=== PATIENT | female | born 1995 | race African-American/Black ===

== ENCOUNTER 2016-04-12 19:04 | Inpatient (IN) | payer OTHER ==
[~2016-04-12] VITALS: Ht 152.4 cm; Wt 64.4 kg
[~2016-04-12 19:04] MED LIST: EPP3/2 IM; PRENTAB26 PO
[2016-04-12 19:52] LABS: BASO % 0.3 %; BASO ABS # 0.03 K/uL (0-0.2); COMPLETE YES; EOS % 1.3 %; HEMATOCRIT 32.5 % (37-47); IG% 0.2 %; LYMPH ABS # 2.54 K/uL (1.2-3.4); MEAN CELL VOLUME 88.1 fL (80-100); MEAN CORPUSCULAR HEMOGLOBIN 30.1 pg (25-34); MEAN CORPUSCULAR HGB CONC 34.2 g/dl (32-36); MEAN PLATELET VOLUME 9.9 fL (7.4-10.4); MONO % 7.9 %; NEUT % 65.3 %; PLATELET COUNT 222 K/uL (130-400); RED BLOOD COUNT 3.69 M/uL (4.2-5.4); WHITE BLOOD COUNT 10.14 K/uL (4.8-10.8)
[2016-04-12 19:52] LABS: PREG INTERNAL NEGATIVE QC NEG CLEAR BACKGROUND; PREG INTERNAL POSITIVE QC POS CONTROL LINE; URINE APPEARANCE CLEAR (CLEAR); URINE BILIRUBIN NEG (NEG); URINE COLOR YELLOW; URINE EPITHELIAL CELL AUTO >30 /lpf (0-5); URINE NITRITE NEG (NEG); URINE SPECIFIC GRAVITY 1.018 (1.000-1.030); UROBILINOGEN NEG (NEG); ZZUR CULT IF INDIC CLEAN CATCH YES
[2016-04-12 19:58] LABS: MANUAL MICROSCOPIC REQUIRED? NO; REVIEW REQ? NO
--- NOTE | 2016-04-12 20:07 | EMERGENCY ROOM VISIT NOTE ---
History Report prepared by [place]: Fuad Davis Under the Supervision of: Dr. Francisca Mckeon M.D. First contact with patient: 19:36 Chief Complaint: MENTAL HEALTH EVALUATION Stated Complaint: MENTAL HEALTH EVAL History of Present Illness The patient is a 20 year old female who presents to the Emergency Room with complaints of suicidal ideation prior to arrival. Per patient's significant other, the patient was laying in bed when she pointed a BB gun to head and said she wanted to shoot herself. The patient says she does not remember this event because she was "blacked out." She denies any alcohol or drug use. She also denies suicidal ideation at this time. Per significant other, he thinks this episode was brought on by a miscommunication between the two of them. The patient was admitted to the [facility] in May 2015. Last month, she was admitted to [address] [place] [address]. The patient has a history of suicidal ideation where she has wanted or tried to walk in moving traffic. The patient is 21 weeks and can feel the baby moving. She denies any vaginal bleeding or discharge; it has been a normal . She denies any other medical complaints at this time. Source of History: patient, spouse/significant other Onset: prior to arrival Position: other (global) Note: Other associated symptoms: suicidal ideation prior to arrival Denies: suicidal ideation now Review of Systems See HPI for pertinent positives & negatives. A total of 10 systems reviewed and were otherwise negative. Past Medical & Surgical Medical Problems: (1) Depression (2) Intellectual disability (3) Mood disorder NOS (4) No chronic problems Family History Patient reports no known family medical history. Social History Smoking Status: Former Smoker Alcohol Use: none Drug Use: none Marital Status: other Housing Status: lives with significant other Occupation Status: employed Current/Historical Medications Scheduled Multivit/Min/Iron/Fol Ac/Pren ( Vitamin), 1 TAB PO DAILY Scheduled PRN Epinephrine (Epipen), 0.3 MG IM UD PRN for ALLERGIC REACTION Allergies Coded Allergies: Horner Pepper (Verified Allergy, Severe, Throat swelling, 04/12/16) Mustard (Verified Allergy, Severe, Hives and throat swelling, 04/12/16) Onion (Verified Allergy, Severe, Throat swelling, 04/12/16) Physical Exam Vital Signs Date Time Temp Pulse Resp B/P Pulse Ox O2 Delivery O2 Flow Rate FiO2 04/12/16 20:53 70 16 136/72 99 Room Air 04/12/16 19:05 36.9 71 18 157/68 98 Room Air Physical Exam Vital signs reviewed. General: Well-appearing female, in no significant distress. HEENT: No scleral icterus, PERRLA, neck supple. Atraumatic. Cardiovascular: Regular rate and rhythm, no extra sounds. Pulmonary: Clear to auscultation bilaterally, normal work of breathing. Abdomen: Soft, nontender, nondistended, positive bowel sounds. Gravid abdomen. Musculoskeletal: Atraumatic, no peripheral edema. Neurologic: Patient awake alert and oriented x 3, full strength in all 4 extremities. Cranial nerves 2 through 12 grossly intact. Skin: Warm, dry, no rash Psych: Denies suicidal or homicidal ideation Medical Decision & Procedures Laboratory Results 04/12/16 19:40 Red Blood Count 3.69, Mean Corpuscular Volume 88.1, Mean Corpuscular Hemoglobin 30.1, Mean Corpuscular Hemoglobin Concent 34.2, Mean Platelet Volume 9.9, Neutrophils (%) (Auto) 65.3, Lymphocytes (%) (Auto) 25.0, Monocytes (%) (Auto) 7.9, Eosinophils (%) (Auto) 1.3, Basophils (%) (Auto) 0.3, Neutrophils # (Auto) 6.62, Lymphocytes # (Auto) 2.54, Monocytes # (Auto) 0.80, Eosinophils # (Auto) 0.13, Basophils # (Auto) 0.03 04/12/16 19:40 Test 04/12/16 19:08 04/12/16 19:40 Urine Color YELLOW Urine Appearance CLEAR (CLEAR) Urine pH 7.0 (4.5-7.5) Urine Specific [place] 1.018 (1.000-1.030) Urine Protein NEG (NEG) Urine Glucose (UA) NEG (NEG) Urine Ketones NEG (NEG) Urine Occult Blood NEG (NEG) Urine Nitrite NEG (NEG) Urine Bilirubin NEG (NEG) Urine Urobilinogen NEG (NEG) Urine Leukocyte Esterase MODERATE (NEG) Urine WBC (Auto) 5-10 /hpf (0-5) Urine RBC (Auto) 0-4 /hpf (0-4) Urine Hyaline Casts (Auto) 1-5 /lpf (0-5) Urine Epithelial Cells (Auto) >30 /lpf (0-5) Urine Bacteria (Auto) 2+ (NEG) Urine Test POS (NEG) Urine Opiates Screen NEG (NEG) Urine Methadone, Qualitative NEG (NEG) Urine Barbiturates NEG (NEG) Urine Phencyclidine (PCP) Level NEG (NEG) Ur Amphetamine/Methamphetamine NEG (NEG) MDMA (Ecstasy) Screen NEG (NEG) Urine Benzodiazepines Screen NEG (NEG) Urine Cocaine Metabolite NEG (NEG) Urine Marijuana (THC) NEG (NEG) White Blood Count 10.14 K/uL (4.8-10.8) Red Blood Count 3.69 M/uL (4.2-5.4) Hemoglobin 11.1 g/dL (12.0-16.0) Hematocrit 32.5 % (37-47) Mean Corpuscular Volume 88.1 fL (80-100) Mean Corpuscular Hemoglobin 30.1 pg (25-34) Mean Corpuscular Hemoglobin Concent 34.2 g/dl (32-36) Platelet Count 222 K/uL (130-400) Mean Platelet Volume 9.9 fL (7.4-10.4) Neutrophils (%) (Auto) 65.3 % Lymphocytes (%) (Auto) 25.0 % Monocytes (%) (Auto) 7.9 % Eosinophils (%) (Auto) 1.3 % Basophils (%) (Auto) 0.3 % Neutrophils # (Auto) 6.62 K/uL (1.4-6.5) Lymphocytes # (Auto) 2.54 K/uL (1.2-3.4) Monocytes # (Auto) 0.80 K/uL (0.11-0.59) Eosinophils # (Auto) 0.13 K/uL (0-0.5) Basophils # (Auto) 0.03 K/uL (0-0.2) RDW Standard Deviation 43.1 fL (36.4-46.3) RDW Coefficient of Variation 13.3 % (11.5-14.5) Immature Granulocyte % (Auto) 0.2 % Immature Granulocyte # (Auto) 0.02 K/uL (0.00-0.02) Anion Gap 9.0 mmol/L (3-11) Est Creatinine Clear Calc Drug Dose 143.0 ml/min Estimated GFR () > 150.0 Estimated GFR (Non- 137.6 BUN/Creatinine Ratio 15.7 (10-20) Calcium Level 9.2 mg/dl (8.5-10.1) Total Bilirubin 0.3 mg/dl (0.2-1) Aspartate Amino Transf (AST/SGOT) 20 U/L (15-37) Alanine Aminotransferase (ALT/SGPT) 25 U/L (12-78) Alkaline Phosphatase 86 U/L (45-117) Total Protein 7.0 gm/dl (6.4-8.2) Albumin 3.0 gm/dl (3.4-5.0) Globulin 4.0 gm/dl (2.5-4.0) Albumin/Globulin Ratio 0.8 (0.9-2) Thyroid Stimulating Hormone (TSH) 1.290 uIu/ml (0.300-4.500) Salicylates Level < 1.7 mg/dl (2.8-20) Acetaminophen Level < 2 ug/ml (10-30) Ethyl Alcohol mg/dL < 3.0 mg/dl (0-3) Laboratory results per my review. ED Course 1950: Past medical records reviewed. The patient was evaluated in room A7. A complete history and physical examination was performed. 0: At this time, the patient was placed in a bed in a [facility] facility , [address] [place] [address]. Medical Decision Differential diagnosis: Etiologies such as mood disorder, infection, hypoglycemia, electrolyte abnormalities, cardiac sources, intracerebral event, toxicologic, neurologic, as well as others were entertained. This patient was evaluated and appeared to be in no significant distress. The patient was medically cleared and evaluated by mental health. She was accepted on a 201 basis to [facility] for further management. Impression Primary Impression: Suicide gesture Scribe Attestation The scribe's documentation has been prepared under my direction and personally reviewed by me in its entirety. I confirm that the note above accurately reflects all work, treatment, procedures, and medical decision making performed by me. Departure Information Dispostion [facility] ([address] [place] [address]) Referrals Sirena Lim PA-C (PCP)
[2016-04-12 20:15] LABS: ALT/SGPT 25 U/L (12-78); BLOOD UREA NITROGEN 8 mg/dl (7-18); BUN/CREATININE RATIO 15.7 (10-20); CALCIUM 9.2 mg/dl (8.5-10.1); CARBON DIOXIDE 25 mmol/L (21-32); CHLORIDE 105 mmol/L (98-107); CREATININE 0.53 mg/dl (0.60-1.20); GLUCOSE 83 mg/dl (70-99); POTASSIUM 3.7 mmol/L (3.5-5.1); SODIUM 139 mmol/L (136-145)
[2016-04-12 20:23] LABS: ACETAMINOPHEN < 2 ug/ml (10-30)
[2016-04-12 20:24] LABS: BENZODIAZEPINE, URINE NEG (NEG); COCAINE,URINE NEG (NEG); PHENCYCLIDINE, URINE NEG (NEG)
[2016-04-12 20:25] LABS: ALB/GLOB RATIO 0.8 (0.9-2); ALKALINE PHOSPHATASE 86 U/L (45-117); AST/SGOT 20 U/L (15-37)
[2016-04-12] MEDS ORDERED: NURSING VERBAL MED ORDER ONE (21:15)
[2016-04-12 21:56] VITALS: O2SAT 96
[2016-04-12 22:29] VITALS: BP 153/81; PULSE 76; TEMP 36.9; Ht 152.4 cm; Wt 64.4 kg
[2016-04-12] MEDS ORDERED: MAGNESIUM HYDROXIDE SUSP 30 ML UDC PO PRN (22:30)
[2016-04-12] MEDS ORDERED: ALUMINUM/MAGNESIUM SUSP 30 ML UDC PO PRN (22:30)
[2016-04-12] MEDS ORDERED: SODIUM CHLORIDE 0.65% NA SOLN 45 ML (OCEAN) PRN (22:30)
[2016-04-12] MEDS ORDERED: BISMUTH SUBSALICYLATE PER ML OMNICELL CHARGE PO PRN (22:30)
[2016-04-12] MEDS ORDERED: EPINEPHRINE ADULT AUTO-INJECT 0.3 MG SYR IM PRN (22:45)
[2016-04-13 07:00] VITALS: BP_SYST 114; BP_SYST 117; BP_DIAS 65; BP_DIAS 68; PULSE 77; PULSE 91; TEMP 37
[2016-04-13] MEDS: PRENATAL VITAMIN TAB PO SCH (09:21)
[2016-04-13] MEDS: ACETAMINOPHEN 325 MG TAB PO PRN (12:23)
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
[2016-04-14 06:58] VITALS: BP_SYST 108; BP_SYST 112; BP_DIAS 58; BP_DIAS 67; PULSE 84; PULSE 85; TEMP 36.8
[2016-04-14] MEDS: PRENATAL VITAMIN TAB PO SCH (08:48)
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
[2016-04-14] MEDS: ACETAMINOPHEN 325 MG TAB PO PRN (11:45)
[2016-04-14] MEDS ORDERED: SERTRALINE HCL 50 MG TAB PO ONE (15:45)
[2016-04-15 07:05] VITALS: BP_SYST 106; BP_SYST 120; BP_DIAS 55; BP_DIAS 60; PULSE 80; PULSE 87; TEMP 36.7
[2016-04-15] MEDS: PRENATAL VITAMIN TAB PO SCH (09:07)
[2016-04-15] MEDS: SERTRALINE HCL 50 MG TAB PO SCH (09:07)
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
[2016-04-15] MEDS: ACETAMINOPHEN 325 MG TAB PO PRN (14:17)
[2016-04-16 06:55] VITALS: BP_SYST 111; BP_SYST 126; BP_DIAS 68; BP_DIAS 73; PULSE 88; PULSE 90; TEMP 36.8
[2016-04-16] MEDS: SERTRALINE HCL 50 MG TAB PO SCH (08:51)
[2016-04-16] MEDS: PRENATAL VITAMIN TAB PO SCH (08:51)
[2016-04-16] MEDS ORDERED: ZLF50 PO (09:29)
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
== END 2016-04-16 14:50 | disposition home or self-care (01) | DRG 781 ==
LOC: EDBD 19:04 → C.EDA 19:05 → C.MHU 21:21
PROVIDERS: ADMIT Psychiatry & Neurology Psychiatry; ATTEND Psychiatry & Neurology Psychiatry
DX: O99.342 Other mental disorders complicating pregnancy, second trimester (principal); R45.851 Suicidal ideations; F32.9 Major depressive disorder, single episode, unspecified; O99.012 Anemia complicating pregnancy, second trimester; D64.9 Anemia, unspecified; F41.9 Anxiety disorder, unspecified; F90.9 Attention-deficit hyperactivity disorder, unspecified type; F79 Unspecified intellectual disabilities; Z3A.21 21 weeks gestation of pregnancy; Z87.891 Personal history of nicotine dependence; Z79.899 Other long term (current) drug therapy; Z91.018 Allergy to other foods

== ENCOUNTER 2016-04-18 20:29 | Inpatient (IN) | payer OTHER ==
[~2016-04-18] VITALS: Ht 152.4 cm; Wt 69.9 kg
[~2016-04-18 20:29] MED LIST changes: -EPP3/2 IM; +ZLF50 PO
[2016-04-18 21:38] LABS: PREG INTERNAL NEGATIVE QC NEG CLEAR BACKGROUND; PREG INTERNAL POSITIVE QC POS CONTROL LINE
[2016-04-18 21:52] LABS: HEMATOCRIT 34.9 % (37-47); MEAN CELL VOLUME 88.6 fL (80-100); MEAN CORPUSCULAR HEMOGLOBIN 29.9 pg (25-34); MEAN CORPUSCULAR HGB CONC 33.8 g/dl (32-36); MEAN PLATELET VOLUME 10.4 fL (7.4-10.4); PLATELET COUNT 249 K/uL (130-400); RED BLOOD COUNT 3.94 M/uL (4.2-5.4); WHITE BLOOD COUNT 11.15 K/uL (4.8-10.8)
[2016-04-18 21:58] LABS: BENZODIAZEPINE, URINE NEG (NEG); COCAINE,URINE NEG (NEG); PHENCYCLIDINE, URINE NEG (NEG)
[2016-04-18 22:11] LABS: ALT/SGPT 31 U/L (12-78); BLOOD UREA NITROGEN 9 mg/dl (7-18); BUN/CREATININE RATIO 13.8 (10-20); CALCIUM 9.2 mg/dl (8.5-10.1); CARBON DIOXIDE 26 mmol/L (21-32); CHLORIDE 103 mmol/L (98-107); CREATININE 0.65 mg/dl (0.60-1.20); GLUCOSE 81 mg/dl (70-99); POTASSIUM 3.6 mmol/L (3.5-5.1); SODIUM 140 mmol/L (136-145)
[2016-04-18 22:17] LABS: ACETAMINOPHEN < 2 ug/ml (10-30)
[2016-04-18 22:22] LABS: ALKALINE PHOSPHATASE 102 U/L (45-117); AST/SGOT 22 U/L (15-37)
[2016-04-18 22:52] LABS: URINE APPEARANCE CLEAR (CLEAR); URINE BILIRUBIN NEG (NEG); URINE COLOR YELLOW; URINE EPITHELIAL CELL AUTO >30 /lpf (0-5); URINE NITRITE NEG (NEG); URINE SPECIFIC GRAVITY 1.008 (1.000-1.030); UROBILINOGEN NEG (NEG)
[2016-04-18 22:58] LABS: MANUAL MICROSCOPIC REQUIRED? NO; REVIEW REQ? NO
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
[2016-04-19] MEDS ORDERED: NURSING VERBAL MED ORDER ONE
[2016-04-19 00:06] VITALS: BP 122/61; PULSE 75; TEMP 36.8; Ht 152.4 cm; Wt 69.9 kg
[2016-04-19] MEDS ORDERED: MAGNESIUM HYDROXIDE SUSP 30 ML UDC PO PRN (01:00)
[2016-04-19] MEDS ORDERED: hydrOXYzine HCL 25 MG TAB PO PRN ×2 (01:00)
[2016-04-19] MEDS ORDERED: SODIUM CHLORIDE 0.65% NA SOLN 45 ML (OCEAN) PRN (01:00)
[2016-04-19] MEDS ORDERED: BISMUTH SUBSALICYLATE PER ML OMNICELL CHARGE PO PRN (01:00)
[2016-04-19] MEDS ORDERED: ALUMINUM/MAGNESIUM SUSP 30 ML UDC PO PRN (01:00)
[2016-04-19 01:07] VITALS: O2SAT 97
[2016-04-19 06:31] VITALS: BP_SYST 114; BP_SYST 121; BP_DIAS 68; BP_DIAS 70; PULSE 78; PULSE 99; TEMP 36.9
[2016-04-19] MEDS: SERTRALINE HCL 50 MG TAB PO SCH (09:24)
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
[2016-04-19] MEDS: ACETAMINOPHEN 325 MG TAB PO PRN (13:48)
[2016-04-20 07:09] VITALS: BP_SYST 117; BP_SYST 119; BP_DIAS 73; BP_DIAS 74; PULSE 83; PULSE 96; TEMP 36.8
[2016-04-20] MEDS: SERTRALINE HCL 50 MG TAB PO SCH (09:20)
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
[2016-04-21 07:03] VITALS: BP_SYST 120; BP_SYST 98; BP_DIAS 60; BP_DIAS 79; PULSE 79; PULSE 96; TEMP 36.7
[2016-04-21] MEDS: SERTRALINE HCL 50 MG TAB PO SCH (08:41)
[2016-04-21] MEDS ORDERED: PRENATAL VITAMIN TAB PO ONE (12:14)
--- NOTE | 2016-04-21 12:14 | Psychiatric Progress Notes ---
Progress Note Date of Service Apr 21, 2016. Interval History 20 yo female readmit on 201 with SI. Chief Complaint "I'm trying to be positive but I feel like I'm stuck in a spiral". Subjective Patient was seen & assessed interval progress reviewed with Treatment Team. No acute events overnight apart from a call from pt's roommates reported by nursing staff in the subsurface augmentee elint operator this am reporting concern that that patient might be discharged today. They reportedly expressed fearfulness that pt had been aggressive at home and hoped she would be hospitalized longer to receive more tx. Pt reports she is "a little miffed" about this this am. She denies thoughts of harm t anyone else bu does acknowledge friction in the apartment and reports her CM is assisting in possibly finding alternative living arrangements. She expresses feeling eager to discharge to attend therapy appt friday. We reviewed her failed discharge from last hospitalization. She perceives primary stressor is roommates. She struggles to problem solve for herself. She reports mood remains depressive but denies SI today. She requests vitamin. She denies SE associated with zoloft. Review of Systems Psychiatric: + problem reported (denies si/hi), No insomnia Sleep Information Total Hours of Sleep: 8.00 Meal Information Percent of Breakfast Consumed: 100 Percent of Lunch Consumed: 75 Percent of Dinner Consumed: 100 Mental Status Exam During interview pt is: alert and oriented Appearance: appropriately dressed, appropriately groomed Eye contact is: fair Motor behavior is: no abnormal motor movements Speech: normal in rate, rhythm & volume Affect: blunted Mood is: depressed Thought process: clear, coherent Thought content: reality based without delusions Suicidal thought are: denied Homicidal thoughts are: denied Hallucinations: denies auditory, denies visual Cognition: memory grossly intact, attention grossly intact, language grossly intact Intelligence estimated to be: consistent with level of education Insight: limited Judgement: limited Impression 20 yo female with history of depression and suicide attempt/near attempt who presented to ED with SI, limited self care while 6 months , currently on Zoloft. Although patient denies a history of renetta, she does have history of impulsive anger outbursts in adolescence which could be related to ODD, untreated ADHD, personality or other mood disorder (ie early onset bipolar). 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 Continued Inpatient Care Although denying suicidal ideation, she is high risk given past attempts and poor impulse control and , still working on psychosocial interventions Plan (1) Depressive disorder, atypical continue Zoloft, consider increase though hx of impulsivity and currently hopes to avoid lamictal in 04/21 - tolerating zoloft. will increase to 75mg daily. needs psychosocial intervention at home. CM involved. will appreciate assistance from [facility] on Friday (2) Second trimester family meeting around safety plan and stable housing to support health for remainder of 04/20--continues to refuse contact with parents, manager of case to assist with roommates leaving 04/22, has housing meeting 04/24 04/21 - restart vitamin (3) Depression Discharge / Aftercare Planning Primary Care Physician: Name: Pedro Begum Psychiatrist: Name: Dr. Ho, [facility] Therapist: Name: 04/22 @1pm Vacation Planner: Name: Khang Sandoval Visit Code E&M Code: 46837 Inventory Assets Strengths: interested now in having healthy , maintains relationship with adoptive parents (would like to move closer for support) Needs: ongoing care and parenting skills Risk Factors Assessment Mental Health Diagnoses: Yes Substance use disorders: No Previous attempt: Yes Previous psychiatric stay: Yes Protective Factors Assessment : Yes Responsible for young children: Yes Supportive family: Yes Data Vital Signs Last 24 Hrs: Date Time Temp Pulse Resp B/P Pulse Ox O2 Delivery O2 Flow Rate FiO2 04/21/16 07:03 36.7 79 16 98/60 96 120/79 Meds Administered Last 24 Hrs: Meds Administered (Past 24Hrs) Medications (Trade) Dose Ordered Sig/Ravin Route Start Time Stop Time Status Last Admin Dose Admin Diphenhydramine HCl (Benadryl Cap) 25 mg Q6 PRN PO 04/19/16 13:00 05/19/16 12:59 04/20/16 21:07 25 MG
[2016-04-21] MEDS ORDERED: SERTRALINE HCL 50 MG TAB PO ONE (12:15)
[2016-04-21] MEDS: ACETAMINOPHEN 325 MG TAB PO PRN (14:12)
[2016-04-22 07:02] VITALS: BP_SYST 107; BP_SYST 120; BP_DIAS 68; BP_DIAS 77; PULSE 71; PULSE 90; TEMP 36.9
[2016-04-22] MEDS: SERTRALINE HCL 50 MG TAB PO SCH (08:56)
[2016-04-22] MEDS: PRENATAL VITAMIN TAB PO SCH (08:57)
--- NOTE | 2016-04-22 11:11 | Psychiatric Progress Notes ---
Progress Note Date of Service Apr 22, 2016. Interval History 20 yo female readmit on 201 with SI. Chief Complaint "Good, don't know if I'm great, when you're you're not supposed to have all this stress!" Subjective Patient was seen & assessed interval progress reviewed with Treatment Team. Staff report she is going to groups and participating in treatment. Yesterday her roommate Salvador called and told staff that he nor Lu's Jonas feel safe with her coming home anytime soon. He stated her asked him to call, and they fear what she may do to them in their sleep, as she talks about "wanting to kill puppies" and that she beats on her . Salvador states that she always lies and that her name is not on the lease as she claims it is. He states everyone is unable to sleep tonight for fear she will be discharged as she was discharged "way too soon the last 2 times she was there." The patient told staff that she is not a danger to herself or others and that they are actually trying to get Salvador to leave their apartment. She really would like to go home, but is willing to have a meeting with her first. Staff attempted to contact him but he doesn't have a phone. She was appropriate and supportive of another female patient in group therapy. Mood and affect have been brighter and she has been out of her room and attending groups. The [facility] was contacted and stated the patient did not show up for her appointment with Dr. Ho last week. Today the patient states her mood is "ok," and she admits to feeling stressed and overwhelmed by her housing situation, saying she knows the people she's allowed to stay with her and her have to leave, but has "no idea" how to make that happen. She says she "can't handle it" and is unable to problem solve or think of ways she might cope. She has not spoken to her as he doesn't have a phone, but called her mother who is going to message him on social media and will try to contact him that way to set up a meeting with the social work assistant. She is anxious to leave the hospital, saying she has a meeting in [place] about housing on that she has to attend, and appointments with her OB Nurse and [facility] [place] on and Friday. At the same time that she asks to leave, she admits she can't handle the stress at home and can't think of any way to deal with the situation. She denies SI right now, but admits she has suicidal thoughts when overwhelmed. With coaching, she is able to state that she could call her mother if she felt overwhelmed at home, and could go stay with her. Sleep Information Total Hours of Sleep: 7.00 Meal Information Percent of Breakfast Consumed: 75 Percent of Lunch Consumed: 100 Percent of Dinner Consumed: 100 Mental Status Exam During interview pt is: alert and oriented, cooperative Appearance: appropriately dressed, appropriately groomed Eye contact is: fair Motor behavior is: steady gait & station, no abnormal motor movements Speech: normal in rate, rhythm & volume Affect: other (full, reactive) Mood is: other ("good, don't know if I'm great") Thought process: concrete Thought content: reality based without delusions Suicidal thought are: denied Homicidal thoughts are: denied Hallucinations: denies auditory, denies visual Cognition: memory grossly intact, attention grossly intact, language grossly intact Intelligence estimated to be: below average Insight: limited Judgement: limited Impression 20 yo female with history of depression and suicide attempt/near attempt who presented to ED with SI, limited self care while 6 months , currently on Zoloft. Although patient denies a history of renetta, she does have history of impulsive anger outbursts in adolescence which could be related to ODD, untreated ADHD, personality or other mood disorder (ie early onset bipolar). 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 will increase to 75mg daily. needs psychosocial intervention at home. CM involved. will appreciate assistance from [facility] on Saturday 04/22 - Needs help in developing a better safety plan, should write it out and copies provided for her outpatient case hardener - Recommend family meeting with mother, , and outpatient case hardener to work on plan to address housing issues and repeated suicidal threats when stressed - Missed last psychiatric appointment with Dr. Ho, rescheduled for 05/20/16. - Reschedule therapy session with Tasha Stuart that she is missing today. (2) Second trimester family meeting around safety plan and stable housing to support health for remainder of 04/20--continues to refuse contact with parents, correctional case records supervisor to assist with roommates leaving 04/22, has housing meeting 04/24 04/21 - restart vitamin 04/22 - Ensure OB f/u, has Nurse that visits her at home who is scheduled to come Thurs. 04/25. Discharge / Aftercare Planning Primary Care Physician: Name: Pedro Begum Psychiatrist: Name: Dr. Ho, [facility] Date of Appointment: May 20, 2016 Time of Appointment: 4:30pm Therapist: Name: [facility] Date of Appointment: Apr 29, 2016 Counter Caser: Name: Khang Sandoval Visit Code E&M Code: 41045 Inventory Assets Strengths: interested now in having healthy , maintains relationship with adoptive parents (would like to move closer for support) Needs: ongoing care and parenting skills Risk Factors Assessment Mental Health Diagnoses: Yes Substance use disorders: No Previous attempt: Yes Previous psychiatric stay: Yes Protective Factors Assessment : Yes Responsible for young children: Yes Supportive family: Yes Data Vital Signs Last 24 Hrs: Date Time Temp Pulse Resp B/P Pulse Ox O2 Delivery O2 Flow Rate FiO2 04/22/16 07:02 36.9 71 16 107/68 90 120/77 Meds Administered Last 24 Hrs: Meds Administered (Past 24Hrs) Medications (Trade) Dose Ordered Sig/Ravin Route Start Time Stop Time Status Last Admin Dose Admin Sertraline HCl (Zoloft Tab) 75 mg DAILY PO 04/22/16 09:00 05/22/16 08:59 04/22/16 08:56 75 MG Sertraline HCl (Zoloft Tab) 25 mg NOW ONCE PO 04/21/16 12:15 04/21/16 12:34 DC 04/21/16 12:53 25 MG Prenat Multivit/ [place]/Iron/Folic Ac ( Vitamin Tab) 1 tab QAM PO 04/22/16 09:00 05/22/16 08:59 04/22/16 08:57 1 TAB Prenat Multivit/ Cadmium Liquor Maker/Iron/Folic Ac ( Vitamin Tab) 1 tab 1214 ONCE PO 04/21/16 12:14 04/21/16 12:34 DC 04/21/16 12:53 1 TAB
[2016-04-22] MEDS: ACETAMINOPHEN 325 MG TAB PO PRN (17:33)
[2016-04-23 06:56] VITALS: BP_SYST 109; BP_SYST 144; BP_DIAS 68; BP_DIAS 70; PULSE 88; PULSE 95; TEMP 37
[2016-04-23] MEDS: PRENATAL VITAMIN TAB PO SCH (08:59)
[2016-04-23] MEDS: SERTRALINE HCL 50 MG TAB PO SCH (08:59)
--- NOTE | 2016-04-23 09:09 | Psychiatric Progress Notes ---
Progress Note Date of Service Apr 23, 2016. Interval History 20 yo female readmit on 201 with SI. Chief Complaint "In the negatives". Subjective Patient was seen & assessed interval progress reviewed with Treatment Team. The patient is quite depressed today after hearing from her that he doesn't want her home, fearing for his own safety, and that of his roommates. Per the nursing notes, her said that he talked with her mom and told her to come get the patient's belongings, and that he would be looking into a divorce. The patient is upset by the news and thinks that the roommates are influencing her 's decisions, and that if they could get into couples counseling, they would be alright. She admits that she had SI last evening, but did not act on it, and today denies SI. She remains focused on being discharged in time to attend the 1100 meeting tomorrow regarding subsidized housing. She says that she doesn't want to move back with her mother, "Its not my home.", and wants only to go back to her apartment, but was encouraged to make good decisions for she and the baby. She rates her mood "in the negatives " on the 0-10 scale. Review of Systems Constitutional: + fatigue ENT: No dental problems, No hearing loss, No nasal symptoms, No problem reported, No sore throat, No tinnitus, No trouble swallowing, No unusual epistaxis Respiratory: No cough, No dyspnea at rest, No dyspnea on exertion, No hemoptysis, No problem reported, No shortness of breath, No sputum, No wheezing Cardiovascular: No PND, No chest pain, No claudication, No edema, No orthopnea , No palpitations, No problem reported Abdomen: + problem reported (22 weeks , felt movement during interview) Musculoskeletal: No calf pain, No joint pain, No muscle pain, No problem reported, No swelling Neurologic: No balance problems, No memory loss, No numbness/tingling, No paralysis, No problem reported, No vertigo, No weakness Psychiatric: + depression symptoms Integumentary: No bleeding, No color change, No itch, No new/changing skin lesions, No problem reported, No rash Sleep Information Total Hours of Sleep: 6.25 Meal Information Percent of Breakfast Consumed: 75 Percent of Lunch Consumed: 50 Percent of Dinner Consumed: 40 Mental Status Exam During interview pt is: alert and oriented, cooperative Appearance: appropriately dressed, other (malodorous) Eye contact is: fair Motor behavior is: steady gait & station, no abnormal motor movements Speech: normal in rate, rhythm & volume Affect: other (full, reactive) Mood is: depressed Thought process: concrete Thought content: reality based without delusions Suicidal thought are: denied Homicidal thoughts are: denied Hallucinations: denies auditory, denies visual Cognition: memory grossly intact, attention grossly intact, language grossly intact Intelligence estimated to be: below average Insight: limited Judgement: limited Impression Patients family situation is in disarray, with now saying that he won't have her come home and is possibly thinking about divorce. She doesn't want to consider returning to her mothers home, but this is the only option given that she doesn't work and has no other supports. Her suicidality appears under distress, as an impulsive thought and quickly recedes when she has time to think. We will need to pursue a meeting with and mother for clarification and further discharge planning. Will need to explore tomorrow's housing meeting to see if can be postponed/rescheduled in view of recent events , as patient not stable enough to consider discharge. 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 will increase to 75mg daily. needs psychosocial intervention at home. CM involved. will appreciate assistance from [facility] on Saturday 04/22 - Needs help in developing a better safety plan, should write it out and copies provided for her outpatient catalytic case operator - Recommend family meeting with mother, , and outpatient catalytic case operator to work on plan to address housing issues and repeated suicidal threats when stressed - Missed last psychiatric appointment with Dr. Ho, rescheduled for 05/20/16. - Reschedule therapy session with Tasha Stuart that she is missing today. 04/23 - not wanting her home and considering filing for divorce. Will need to be in contact with him for clarifications - Arrange family meeting with mother for discharge planning - Explore possibility of rescheduling housing meeting set for tomorrow at 1100 (2) Second trimester family meeting around safety plan and stable housing to support health for remainder of 04/20--continues to refuse contact with parents, spring encaser to assist with roommates leaving 04/22, has housing meeting 04/24 04/21 - restart vitamin 04/22 - Ensure OB f/u, has Nurse that visits her at home who is scheduled to come Thurs. 04/25. Discharge / Aftercare Planning Primary Care Physician: Name: Pedro Begum Psychiatrist: Name: Dr. Ho, [facility] Date of Appointment: May 20, 2016 Time of Appointment: 4:30pm Therapist: Name: [facility] Date of Appointment: Apr 29, 2016 T[employer]ical [employer] Control Party Manager: Name: Khang Sandoval Visit Code E&M Code: 81455 Inventory Assets Strengths: interested now in having healthy , maintains relationship with adoptive parents (would like to move closer for support) Needs: ongoing care and parenting skills Risk Factors Assessment Mental Health Diagnoses: Yes Substance use disorders: No Previous attempt: Yes Previous psychiatric stay: Yes Protective Factors Assessment : Yes Responsible for young children: Yes Supportive family: Yes Data Vital Signs Last 24 Hrs: Date Time Temp Pulse Resp B/P Pulse Ox O2 Delivery O2 Flow Rate FiO2 04/23/16 06:56 37.0 88 16 144/70 95 109/68 Meds Administered Last 24 Hrs: Meds Administered (Past 24Hrs) Medications (Trade) Dose Ordered Sig/Ravin Route Start Time Stop Time Status Last Admin Dose Admin Sertraline HCl (Zoloft Tab) 75 mg DAILY PO 04/22/16 09:00 05/22/16 08:59 04/22/16 08:56 75 MG Sertraline HCl (Zoloft Tab) 25 mg NOW ONCE PO 04/21/16 12:15 04/21/16 12:34 DC 04/21/16 12:53 25 MG Prenat Multivit/ Inspector And Hand Packager/Iron/Folic Ac ( Vitamin Tab) 1 tab QAM PO 04/22/16 09:00 05/22/16 08:59 04/22/16 08:57 1 TAB Prenat Multivit/ Inspector And Hand Packager/Iron/Folic Ac ( Vitamin Tab) 1 tab 1214 ONCE PO 04/21/16 12:14 04/21/16 12:34 DC 04/21/16 12:53 1 TAB Lab Results Last 24 Hrs: 04/18/16 21:41 04/18/16 21:41 Test 04/18/16 21:00 04/18/16 21:41 Urine Color YELLOW Urine Appearance CLEAR (CLEAR) Urine pH 6.0 (4.5-7.5) Urine Specific [place] 1.008 (1.000-1.030) Urine Protein NEG (NEG) Urine Glucose (UA) NEG (NEG) Urine Ketones NEG (NEG) Urine Occult Blood TRACE (NEG) Urine Nitrite NEG (NEG) Urine Bilirubin NEG (NEG) Urine Urobilinogen NEG (NEG) Urine Leukocyte Esterase MODERATE (NEG) Urine WBC (Auto) 1-5 /hpf (0-5) Urine RBC (Auto) 0-4 /hpf (0-4) Urine Hyaline Casts (Auto) 1-5 /lpf (0-5) Urine Epithelial Cells (Auto) >30 /lpf (0-5) Urine Bacteria (Auto) 1+ (NEG) Urine Test POS (NEG) Urine Opiates Screen NEG (NEG) Urine Methadone, Qualitative NEG (NEG) Urine Barbiturates NEG (NEG) Urine Phencyclidine (PCP) Level NEG (NEG) Ur Amphetamine/Methamphetamine NEG (NEG) MDMA (Ecstasy) Screen NEG (NEG) Urine Benzodiazepines Screen NEG (NEG) Urine Cocaine Metabolite NEG (NEG) Urine Marijuana (THC) NEG (NEG) Red Blood Count 3.94 M/uL (4.2-5.4) Mean Corpuscular Volume 88.6 fL (80-100) Mean Corpuscular Hemoglobin 29.9 pg (25-34) Mean Corpuscular Hemoglobin Concent 33.8 g/dl (32-36) RDW Standard Deviation 43.2 fL (36.4-46.3) RDW Coefficient of Variation 13.4 % (11.5-14.5) Mean Platelet Volume 10.4 fL (7.4-10.4) Anion Gap 11.0 mmol/L (3-11) Estimated GFR () 149.2 Estimated GFR (Non- 128.7 BUN/Creatinine Ratio 13.8 (10-20) Calcium Level 9.2 mg/dl (8.5-10.1) Total Bilirubin 0.2 mg/dl (0.2-1) Direct Bilirubin 0.1 mg/dl (0-0.2) Aspartate Amino Transf (AST/SGOT) 22 U/L (15-37) Alanine Aminotransferase (ALT/SGPT) 31 U/L (12-78) Alkaline Phosphatase 102 U/L (45-117) Total Protein 7.7 gm/dl (6.4-8.2) Albumin 3.2 gm/dl (3.4-5.0) Thyroid Stimulating Hormone (TSH) 2.860 uIu/ml (0.300-4.500) Salicylates Level < 1.7 mg/dl (2.8-20) Acetaminophen Level < 2 ug/ml (10-30) Ethyl Alcohol mg/dL < 3.0 mg/dl (0-3) Date/Time Source Procedure Growth Status 04/18/16 21:00 Urine , Clean Catch Urine Culture - Final MORE THAN THREE TYPES OF ORGANISMS [place]... Complete
[2016-04-23] MEDS: ACETAMINOPHEN 325 MG TAB PO PRN (17:44)
[2016-04-24 06:56] VITALS: BP_SYST 109; BP_SYST 120; BP_DIAS 68; BP_DIAS 78; PULSE 103; PULSE 88; TEMP 36.7
[2016-04-24] MEDS: PRENATAL VITAMIN TAB PO SCH (09:06)
[2016-04-24] MEDS: SERTRALINE HCL 50 MG TAB PO SCH (09:06)
--- NOTE | 2016-04-24 09:36 | Psychiatric Progress Notes ---
Progress Note Date of Service Apr 24, 2016. Interval History 20 yo female readmit on 201 with SI. Chief Complaint "Great.". Subjective Patient was seen & assessed interval progress reviewed with Treatment Team. The patient is happy today after having a family meeting with her yesterday. They were able to resolve their differences and will remain together. She would still like to get into couples therapy to improve communications. She has been journaling as a means of coping with her emotions and feels that has been very helpful, and plans to continue at home. She rates her mood today "a 10 plus", denying any further SI. There is a meeting with all of her providers scheduled for this afternoon to discuss her treatment. Review of Systems Constitutional: No chills, No fatigue, No fever, No problem reported, No sweats , No weakness, No weight loss ENT: No dental problems, No hearing loss, No nasal symptoms, No problem reported, No sore throat, No tinnitus, No trouble swallowing, No unusual epistaxis Respiratory: No cough, No dyspnea at rest, No dyspnea on exertion, No hemoptysis, No problem reported, No shortness of breath, No sputum, No wheezing Cardiovascular: No PND, No chest pain, No claudication, No edema, No orthopnea , No palpitations, No problem reported Abdomen: No GI bleeding, No constipation, No diarrhea, No nausea, No pain, No problem reported, No vomiting Musculoskeletal: No calf pain, No joint pain, No muscle pain, No problem reported, No swelling Neurologic: No balance problems, No memory loss, No numbness/tingling, No paralysis, No problem reported, No vertigo, No weakness Psychiatric: No anhedonism, No anxiety, No depression symptoms, No insomnia, No problem reported, No substance abuse Integumentary: No bleeding, No color change, No itch, No new/changing skin lesions, No problem reported, No rash Sleep Information Total Hours of Sleep: 7.25 Meal Information Percent of Breakfast Consumed: 100 Percent of Lunch Consumed: 50 Percent of Dinner Consumed: 40 Mental Status Exam During interview pt is: alert and oriented, cooperative Appearance: appropriately dressed, other (malodorous) Eye contact is: fair Motor behavior is: steady gait & station, no abnormal motor movements Speech: normal in rate, rhythm & volume Affect: other (full, reactive) Mood is: other (happy) Thought process: goal directed, concrete Thought content: reality based without delusions Suicidal thought are: denied Homicidal thoughts are: denied Hallucinations: denies auditory, denies visual Cognition: memory grossly intact, attention grossly intact, language grossly intact Intelligence estimated to be: below average Insight: limited Judgement: limited Impression Mood has rebounded after came in for a meeting and they have reconciled. Both the patient and her support system are reactive emotionally and tend to react with catastrophic threats such as suicide and divorce. They are both very immature and will require a lot of support as they move forward. Treatment team meeting planned for this afternoon with all of her OP supports to discuss her case moving forward. Will encourage her to employ healthy coping strategies as we prepare for her discharge. 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 will increase to 75mg daily. needs psychosocial intervention at home. CM involved. will appreciate assistance from [facility] on Saturday 04/22 - Needs help in developing a better safety plan, should write it out and copies provided for her outpatient employment case manager - Recommend family meeting with mother, , and outpatient employment case manager to work on plan to address housing issues and repeated suicidal threats when stressed - Missed last psychiatric appointment with Dr. Ho, rescheduled for 05/20/16. - Reschedule therapy session with Tasha Stuart that she is missing today. 04/23 - not wanting her home and considering filing for divorce. Will need to be in contact with him for clarifications - Arrange family meeting with mother for discharge planning - Explore possibility of rescheduling housing meeting set for tomorrow at 1100 04/24 - Housing meeting rescheduled for next week - Meeting with all of her OP supports today at 1500 (2) Second trimester family meeting around safety plan and stable housing to support health for remainder of 04/20--continues to refuse contact with parents, rehabilitation case coordinator to assist with roommates leaving 04/22, has housing meeting 04/24 04/21 - restart vitamin 04/22 - Ensure OB f/u, has Nurse that visits her at home who is scheduled to come Th. 04/25. 04/24 - patient continues to talk about giving the baby up for adoption, and the will support this Discharge / Aftercare Planning Primary Care Physician: Name: Pedro Begum Psychiatrist: Name: Dr. Ho [facility] Date of Appointment: May 20, 2016 Time of Appointment: 4:30pm Therapist: Name: [facility] Date of Appointment: Apr 29, 2016 Time of Appointment: 1pm Major Assembler: Name: Khang Sandoval Home Health Services: Home Health Agency: Home Nursing Agency Appointment Notes: [facility] Quality Assurance Associate: Name: [facility] OB-CHIP BIN OPERATOR Visit Code E&M Code: 65597 Inventory Assets Strengths: interested now in having healthy , maintains relationship with adoptive parents (would like to move closer for support) Needs: ongoing care and parenting skills Risk Factors Assessment Mental Health Diagnoses: Yes Substance use disorders: No Previous attempt: Yes Previous psychiatric stay: Yes Protective Factors Assessment : Yes Responsible for young children: Yes Supportive family: Yes Data Vital Signs Last 24 Hrs: Date Time Temp Pulse Resp B/P Pulse Ox O2 Delivery O2 Flow Rate FiO2 04/24/16 06:56 36.7 88 16 109/68 103 120/78 Meds Administered Last 24 Hrs: Current Inpatient Medications Medications (Trade) Dose Ordered Sig/Ravin Route Start Time Stop Time Status Last Admin Dose Admin Acetaminophen (Tylenol Tab) 650 mg Q4H PRN PO 04/19/16 01:00 05/19/16 00:59 04/23/16 17:44 650 MG Al Hydroxide/Mg Hydroxide (Maalox Susp) 30 ml Q4H PRN PO 04/19/16 01:00 05/19/16 00:59 Bismuth Subsalicylate (Kaopectate Liqd) 15 ml DAILY PRN PO 04/19/16 01:00 05/19/16 00:59 Magnesium Hydroxide (Milk Of Magnesia Susp) 30 ml DAILY PRN PO 04/19/16 01:00 05/19/16 00:59 Sodium Chloride ([place] Nasal [place]) PRN PRN NA 04/19/16 01:00 05/19/16 00:59 Diphenhydramine HCl (Benadryl Cap) 25 mg Q6 PRN PO 04/19/16 13:00 05/19/16 12:59 04/23/16 21:56 25 MG Sertraline HCl (Zoloft Tab) 75 mg DAILY PO 04/22/16 09:00 05/22/16 08:59 04/24/16 09:06 75 MG Prenat Multivit/ Educational Psychology Professor/Iron/Folic Ac ( Vitamin Tab) 1 tab QAM PO 04/22/16 09:00 05/22/16 08:59 04/24/16 09:06 1 TAB Lab Results Last 24 Hrs: 04/18/16 21:41 04/18/16 21:41 Test 04/18/16 21:00 04/18/16 21:41 Urine Color YELLOW Urine Appearance CLEAR (CLEAR) Urine pH 6.0 (4.5-7.5) Urine Specific [place] 1.008 (1.000-1.030) Urine Protein NEG (NEG) Urine Glucose (UA) NEG (NEG) Urine Ketones NEG (NEG) Urine Occult Blood TRACE (NEG) Urine Nitrite NEG (NEG) Urine Bilirubin NEG (NEG) Urine Urobilinogen NEG (NEG) Urine Leukocyte Esterase MODERATE (NEG) Urine WBC (Auto) 1-5 /hpf (0-5) Urine RBC (Auto) 0-4 /hpf (0-4) Urine Hyaline Casts (Auto) 1-5 /lpf (0-5) Urine Epithelial Cells (Auto) >30 /lpf (0-5) Urine Bacteria (Auto) 1+ (NEG) Urine Test POS (NEG) Urine Opiates Screen NEG (NEG) Urine Methadone, Qualitative NEG (NEG) Urine Barbiturates NEG (NEG) Urine Phencyclidine (PCP) Level NEG (NEG) Ur Amphetamine/Methamphetamine NEG (NEG) MDMA (Ecstasy) Screen NEG (NEG) Urine Benzodiazepines Screen NEG (NEG) Urine Cocaine Metabolite NEG (NEG) Urine Marijuana (THC) NEG (NEG) Red Blood Count 3.94 M/uL (4.2-5.4) Mean Corpuscular Volume 88.6 fL (80-100) Mean Corpuscular Hemoglobin 29.9 pg (25-34) Mean Corpuscular Hemoglobin Concent 33.8 g/dl (32-36) RDW Standard Deviation 43.2 fL (36.4-46.3) RDW Coefficient of Variation 13.4 % (11.5-14.5) Mean Platelet Volume 10.4 fL (7.4-10.4) Anion Gap 11.0 mmol/L (3-11) Estimated GFR () 149.2 Estimated GFR (Non- 128.7 BUN/Creatinine Ratio 13.8 (10-20) Calcium Level 9.2 mg/dl (8.5-10.1) Total Bilirubin 0.2 mg/dl (0.2-1) Direct Bilirubin 0.1 mg/dl (0-0.2) Aspartate Amino Transf (AST/SGOT) 22 U/L (15-37) Alanine Aminotransferase (ALT/SGPT) 31 U/L (12-78) Alkaline Phosphatase 102 U/L (45-117) Total Protein 7.7 gm/dl (6.4-8.2) Albumin 3.2 gm/dl (3.4-5.0) Thyroid Stimulating Hormone (TSH) 2.860 uIu/ml (0.300-4.500) Salicylates Level < 1.7 mg/dl (2.8-20) Acetaminophen Level < 2 ug/ml (10-30) Ethyl Alcohol mg/dL < 3.0 mg/dl (0-3) Date/Time Source Procedure Growth Status 04/18/16 21:00 Urine , Clean Catch Urine Culture - Final MORE THAN THREE TYPES OF ORGANISMS IN... Complete
[2016-04-24] MEDS: ACETAMINOPHEN 325 MG TAB PO PRN ×2 (11:44→21:15)
[2016-04-25 07:04] VITALS: BP_SYST 100; BP_SYST 109; BP_DIAS 62; BP_DIAS 67; PULSE 71; PULSE 91; TEMP 37
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
[2016-04-25] MEDS: PRENATAL VITAMIN TAB PO SCH (08:52)
[2016-04-25] MEDS: SERTRALINE HCL 50 MG TAB PO SCH (08:52)
[2016-04-25] MEDS: ACETAMINOPHEN 325 MG TAB PO PRN (10:36)
[2016-04-26 06:58] VITALS: BP_SYST 103; BP_SYST 109; BP_DIAS 62; BP_DIAS 65; PULSE 76; PULSE 83; TEMP 36.9
[2016-04-26] MEDS: PRENATAL VITAMIN TAB PO SCH (08:57)
[2016-04-26] MEDS: SERTRALINE HCL 50 MG TAB PO SCH (08:58)
[2016-04-26] MEDS ORDERED: ZLF50 PO (10:29)
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
[2016-04-26] MEDS: ACETAMINOPHEN 325 MG TAB PO PRN (15:49)
== END 2016-04-26 18:25 | disposition home or self-care (01) | DRG 781 ==
LOC: C.EDA 20:29 → EDBD 20:29 → C.MHU 04-19 00:01
PROVIDERS: ADMIT Psychiatry & Neurology Psychiatry; ATTEND Psychiatry & Neurology Psychiatry
DX: O99.342 Other mental disorders complicating pregnancy, second trimester (principal); R45.851 Suicidal ideations; F32.9 Major depressive disorder, single episode, unspecified; Z79.899 Other long term (current) drug therapy; Z59.9 Problem related to housing and economic circumstances, unspecified; Z91.018 Allergy to other foods; F79 Unspecified intellectual disabilities

== ENCOUNTER 2016-05-10 19:45 | Emergency (ER) | payer OTHER ==
[~2016-05-10] VITALS: Ht 152.4 cm; Wt 72.5 kg
[2016-05-10 19:55] VITALS: TEMP 36.7; Ht 152.4 cm; Wt 72.5 kg
[2016-05-10 20:33] LABS: HEMATOCRIT 34.7 % (37-47); MEAN CELL VOLUME 88.5 fL (80-100); MEAN CORPUSCULAR HEMOGLOBIN 29.8 pg (25-34); MEAN CORPUSCULAR HGB CONC 33.7 g/dl (32-36); MEAN PLATELET VOLUME 10.4 fL (7.4-10.4); PLATELET COUNT 233 K/uL (130-400); RED BLOOD COUNT 3.92 M/uL (4.2-5.4); WHITE BLOOD COUNT 9.68 K/uL (4.8-10.8)
--- NOTE | 2016-05-10 20:52 | EMERGENCY ROOM VISIT NOTE ---
History Report prepared by Arnaud: Tamara Sotelo Under the Supervision of: Dr. Beltran Leigh M.D. First contact with patient: 19:54 Chief Complaint: MENTAL HEALTH EVALUATION Stated Complaint: MENTAL HEALTH EVAL History of Present Illness The patient is a 20 year old female who presents to the Emergency Room with complaints of a sudden mental health evaluation as a result of a 302 that occurred earlier today. The patient is 6 months and this is her first . She states that she is unsure of why she is here beside the fact that she got a call saying that a 302 was filed against her. The patient states that she has been taking good care of herself especially because she wants to be healthy for the baby. The patient states that she has been experiencing intermittent vomiting, but attributes it to being . She states that she tried to stop taking her Zoloft for the past two days, but knows that she knows that she can't do without it because her moods have been fluctuating. She states that she is trying very hard to control her anger. She denies any suicidal ideations. The patient's states that the patient has been in good moods over the past couple weeks. The patient states that she has been following with [facility] like she is supposed to. The patient's roommate, Salvador, filed the 302 against her. Source of History: patient, spouse/significant other () Onset: earlier today Quality: other (mental health evaluation) Timing: other (sudden) Note: No suicidal ideations Review of Systems All systems have been listed, reviewed, and are negative other than those previously mentioned. Please see Additional Medical History Sheet. Past Medical & Surgical Medical Problems: (1) Depression (2) Depressive disorder, atypical (3) Food allergy (4) Intellectual disability (5) Mood disorder NOS (6) No chronic problems (7) past psych meds Family History Patient reports no known family medical history. Social History Smoking Status: Former Smoker Alcohol Use: none Drug Use: none Marital Status: other Housing Status: lives with significant other Occupation Status: employed Current/Historical Medications Scheduled Multivit/Min/Iron/Fol Ac/Pren ( Vitamin), 1 TAB PO DAILY Sertraline HCl (Sertraline HCl), 75 MG PO QAM Allergies Coded Allergies: No Known Allergies (Unverified , 1/27/17) Physical Exam Vital Signs Date Time Temp Pulse Resp B/P Pulse Ox O2 Delivery O2 Flow Rate FiO2 05/10/16 22:02 88 16 117/65 97 Room Air 05/10/16 19:55 36.7 84 16 149/82 100 Room Air Physical Exam GENERAL: Patient awake, alert, oriented x 3. Patient follows commands. Patient does not appear toxic. Patient is adequately hydrated and well- nourished. SKIN: No erythema, pallor, cyanosis or rash HEENT: Normal head, pupils equal, reactive to light and accommodation. Ears normal. Oral cavity and posterior pharynx appear normal. Neck: Without adenopathy, no neck vein distention. LUNGS: Clear to auscultation. No wheezes, no rales, no rhonchi. HEART: No murmurs. No gallops. No rubs ABDOMEN: Distended uterus consistent with 6 months . No masses, no rebound, no hepatomegaly or splenomegaly. EXTREMITIES: No signs of trauma. No pedal or pretibial edema. No calf or thigh tenderness. NEUROLOGIC: Cranial nerves II-XII within normal limits. No gross motor sensory function deficits. PSYCH: Awake, alert, appropriate. Patient currently denies suicidal or homicidal ideation. Medical Decision & Procedures Laboratory Results 05/10/16 20:07 05/10/16 20:07 Test 05/10/16 20:07 Red Blood Count 3.92 M/uL (4.2-5.4) Mean Corpuscular Volume 88.5 fL (80-100) Mean Corpuscular Hemoglobin 29.8 pg (25-34) Mean Corpuscular Hemoglobin Concent 33.7 g/dl (32-36) RDW Standard Deviation 44.1 fL (36.4-46.3) RDW Coefficient of Variation 13.6 % (11.5-14.5) Mean Platelet Volume 10.4 fL (7.4-10.4) Anion Gap 10.0 mmol/L (3-11) Est Creatinine Clear Calc Drug Dose 121.9 ml/min Estimated GFR () 148.4 Estimated GFR (Non- 128.1 BUN/Creatinine Ratio 7.1 (10-20) Calcium Level 8.9 mg/dl (8.5-10.1) Total Bilirubin 0.2 mg/dl (0.2-1) Aspartate Amino Transf (AST/SGOT) 14 U/L (15-37) Alanine Aminotransferase (ALT/SGPT) 19 U/L (12-78) Alkaline Phosphatase 121 U/L (45-117) Troponin I < 0.015 ng/ml (0-0.045) Total Protein 7.8 gm/dl (6.4-8.2) Albumin 3.2 gm/dl (3.4-5.0) Globulin 4.6 gm/dl (2.5-4.0) Albumin/Globulin Ratio 0.7 (0.9-2) Thyroid Stimulating Hormone (TSH) 1.820 uIu/ml (0.300-4.500) Ethyl Alcohol mg/dL < 3.0 mg/dl (0-3) Laboratory results as stated above per my review. ECG Indication: other (Psych) Rate (beats per minute): 77 Rhythm: normal sinus Findings: no acute ischemic change, no ectopy ED Course 1954: Past medical records reviewed. The patient was evaluated in room A7. A complete history and physical examination was performed. 2200: The patient is medically cleared at this time. I discussed the patient's case with the Psych International Relations Teacher and she agrees that the patient is well enough to go home. 0: Upon reevaluation, the patient appeared to have improvement of her symptoms. I discussed today's findings with her. She verbalized agreement of the treatment plan. She was discharged home. Medical Decision Nurses notes reviewed. Medical history sheet reviewed. Differential diagnosis includes but is not limited to: depression, suicidality, personality disorder. The patient is currently not depressed. She denies suicidal or homicidal ideation. A friend is concerned that she is not taking care of herself but she denies that. The patient does admit to missing 2 doses of Zoloft. The patient does not want to be admitted. At this point, I do not believe she needs admitted. Multiple labs were evaluated. I believe that she is safe to return home but should receive outpatient counseling. She is here with her . She will also need to follow-up with obstetrics. Impression Primary Impression: Depression Additional Impression: Mood disorder Scribe Attestation The scribe's documentation has been prepared under my direction and personally reviewed by me in its entirety. I confirm that the note above accurately reflects all work, treatment, procedures, and medical decision making performed by me. Departure Information Dispostion Home / Self-Care Referrals Sirena Lim PA-C (PCP) Forms HOME CARE DOCUMENTATION FORM, IMPORTANT VISIT INFORMATION Patient Instructions My [facility] Additional Instructions Continue all of your current medications as prescribed including Zoloft. Follow-up with mental health. Follow-up with obstetrics. Return here if any time you feel you're out of control or if you feel suicidal/ depressed. Problem Qualifiers Primary Impression: Depression Depression Type: unspecified Qualified Codes: F32.9 - Major depressive disorder, single episode, unspecified
[2016-05-10 21:08] LABS: ALT/SGPT 19 U/L (12-78); BLOOD UREA NITROGEN 5 mg/dl (7-18); BUN/CREATININE RATIO 7.1 (10-20); CALCIUM 8.9 mg/dl (8.5-10.1); CARBON DIOXIDE 22 mmol/L (21-32); CHLORIDE 105 mmol/L (98-107); CREATININE 0.66 mg/dl (0.60-1.20); GLUCOSE 83 mg/dl (70-99); POTASSIUM 3.5 mmol/L (3.5-5.1); SODIUM 137 mmol/L (136-145)
[2016-05-10 21:19] LABS: ALB/GLOB RATIO 0.7 (0.9-2); ALKALINE PHOSPHATASE 121 U/L (45-117); AST/SGOT 14 U/L (15-37)
[2016-05-10 22:02] VITALS: BP 117/65; PULSE 88; O2SAT 97
[2016-05-11 04:48] LABS: PREG INTERNAL NEGATIVE QC NEG CLEAR BACKGROUND; PREG INTERNAL POSITIVE QC POS CONTROL LINE
[2016-05-11 04:51] LABS: URINE APPEARANCE CLEAR (CLEAR); URINE BILIRUBIN NEG (NEG); URINE COLOR YELLOW; URINE EPITHELIAL CELL AUTO >30 /lpf (0-5); URINE NITRITE NEG (NEG); URINE PH 5.5 (4.5-7.5); URINE SPECIFIC GRAVITY 1.003 (1.000-1.030); UROBILINOGEN NEG (NEG); ZZUR CULT IF INDIC CLEAN CATCH NO
[2016-05-11 04:55] LABS: MANUAL MICROSCOPIC REQUIRED? NO; REVIEW REQ? NO
[2016-05-11 05:12] LABS: BENZODIAZEPINE, URINE NEG (NEG); COCAINE,URINE NEG (NEG); PHENCYCLIDINE, URINE NEG (NEG)
== END 2016-05-10 22:27 | disposition home or self-care (01) ==
LOC: EDBD 19:45 → C.EDA 19:46
DX: O99.342 Other mental disorders complicating pregnancy, second trimester (principal); F32.9 Major depressive disorder, single episode, unspecified; Z3A.00 Weeks of gestation of pregnancy not specified; F79 Unspecified intellectual disabilities; Z87.891 Personal history of nicotine dependence

== ENCOUNTER 2016-05-11 23:53 | Emergency (ER) | payer OTHER ==
[~2016-05-11] VITALS: Ht 152.4 cm; Wt 71.5 kg
[2016-05-11 23:58] VITALS: TEMP 37.1; Ht 152.4 cm; Wt 71.5 kg
[2016-05-12 00:46] LABS: URINE APPEARANCE CLEAR (CLEAR); URINE BILIRUBIN NEG (NEG); URINE COLOR YELLOW; URINE EPITHELIAL CELL AUTO >30 /lpf (0-5); URINE NITRITE NEG (NEG); URINE PH 5.5 (4.5-7.5); URINE SPECIFIC GRAVITY 1.002 (1.000-1.030); UROBILINOGEN NEG (NEG); ZZUR CULT IF INDIC CLEAN CATCH YES
[2016-05-12 00:57] LABS: MANUAL MICROSCOPIC REQUIRED? NO; REVIEW REQ? NO
[2016-05-12 01:28] LABS: BENZODIAZEPINE, URINE NEG (NEG); COCAINE,URINE NEG (NEG); PHENCYCLIDINE, URINE NEG (NEG)
--- NOTE | 2016-05-12 01:48 | EMERGENCY ROOM VISIT NOTE ---
History Report prepared by Arnaud: Beverley Carty Under the Supervision of: Dr. Frankie Mercedes M.D. First contact with patient: 00:04 Chief Complaint: MENTAL HEALTH EVALUATION Stated Complaint: 302 History of Present Illness The patient is a 20 year old female who presents to the Emergency Room via police for a mental health evaluation after a 302 was filed against her tonight. The patient was evaluated in the ED one day ago. The patient had a 302 filed against her one day ago. A 302 has also been filed against the patient today. The patient's roommate filed this document both times. The patient was discharged one day ago, without suicidal or homicidal ideations. She denies any current suicidal or homicidal ideation. The patient denies making any such statements today. The patient is not sure why a 302 has been filed against her. The patient is six months . She denies any problems related to the , leg swelling, vaginal bleeding. She notes that she is taking vitamins and Zoloft. The patient relates that she follows with her therapist regularly and that she has an appointment with her mental health provider in two days. The patient denies taking any drugs, drinking alcohol, Tylenol, aspirin. Source of History: patient Onset: tonight Position: other (global) Quality: other (mental health evaluation) Timing: other (episode ) Note: She denies any current suicidal or homicidal ideation. The patient denies making any such statements today. She denies any problems related to the , leg swelling, vaginal bleeding. The patient denies taking any drugs , drinking alcohol, Tylenol, aspirin. Review of Systems See HPI for pertinent positives & negatives. A total of 10 systems reviewed and were otherwise negative. Past Medical & Surgical Medical Problems: (1) Depression (2) Depressive disorder, atypical (3) Food allergy (4) Intellectual disability (5) Mood disorder NOS (6) No chronic problems (7) past psych meds Family History Patient reports no known family medical history. Social History Smoking Status: Former Smoker Alcohol Use: none Drug Use: none Marital Status: other Housing Status: lives with significant other Occupation Status: employed Current/Historical Medications Scheduled Multivit/Min/Iron/Fol Ac/Pren ( Vitamin), 1 TAB PO DAILY Sertraline HCl (Sertraline HCl), 75 MG PO QAM Allergies Coded Allergies: No Known Allergies (Unverified , 05/12/16) Physical Exam Vital Signs Date Time Temp Pulse Resp B/P Pulse Ox O2 Delivery O2 Flow Rate FiO2 05/12/16 01:56 85 18 153/75 99 05/11/16 23:58 37.1 83 18 149/87 99 Room Air Physical Exam GENERAL: Patient is calm, cooperative, in no distress. HEENT: No acute trauma, normocephalic atraumatic, mucous membranes moist, no nasal congestion, no scleral icterus. NECK: No stridor, no adenopathy, no meningismus, trachea is midline. LUNGS: No dyspnea. Clear to auscultation and equal bilaterally. No wheeze, no rhonchi. HEART: Regular rate and rhythm. No murmurs, rubs, gallops appreciated. ABDOMEN: Soft, nontender, bowel sounds positive, no masses appreciated, no peritonitis. She has fundus consistent with dates. BACK: No midline tenderness, no CVA tenderness EXTREMITIES: Normal motion all extremities, no cyanosis, no edema. NEUROLOGIC: Alert and oriented, no acute motor or sensory deficits, no focal weakness, cranial nerves grossly intact. SKIN: No rash, no jaundice, no diaphoresis. PSYCH: The patient denies suicidal, homicidal ideations. Medical Decision & Procedures Laboratory Results Test 05/12/16 00:10 Urine Color YELLOW Urine Appearance CLEAR (CLEAR) Urine pH 5.5 (4.5-7.5) Urine Specific [place] 1.002 (1.000-1.030) Urine Protein NEG (NEG) Urine Glucose (UA) NEG (NEG) Urine Ketones NEG (NEG) Urine Occult Blood TRACE (NEG) Urine Nitrite NEG (NEG) Urine Bilirubin NEG (NEG) Urine Urobilinogen NEG (NEG) Urine Leukocyte Esterase SMALL (NEG) Urine WBC (Auto) 5-10 /hpf (0-5) Urine RBC (Auto) 0-4 /hpf (0-4) Urine Hyaline Casts (Auto) 1-5 /lpf (0-5) Urine Epithelial Cells (Auto) >30 /lpf (0-5) Urine Bacteria (Auto) 1+ (NEG) Urine Opiates Screen NEG (NEG) Urine Methadone, Qualitative NEG (NEG) Urine Barbiturates NEG (NEG) Urine Phencyclidine (PCP) Level NEG (NEG) Ur Amphetamine/Methamphetamine NEG (NEG) MDMA (Ecstasy) Screen NEG (NEG) Urine Benzodiazepines Screen NEG (NEG) Urine Cocaine Metabolite NEG (NEG) Urine Marijuana (THC) NEG (NEG) Laboratory results as reviewed by me. ED Course 0006: The patient was evaluated in room A12. A complete history and physical exam was performed. 0024: I discussed the case with [facility]. 0026: Spoke to 3 [facility] mental health liaison (Nohelia). We discussed that the patient has had a 302 filed against her twice within the past 24 hours for the same complaint. 3 [facility] will be down to evaluate the patient. 0123: 3 [facility] evaluated the patient; they feel that the patient does not meet inpatient criteria. 0146: Reevaluated the patient; she is calm, cooperative, and would like to go home. Discussed results and discharge instructions: She verbalized understanding and agreement. The patient is ready for discharge. Medical Decision Differential: Mood Disorder, Overdose, Infectious, Electrolyte Abnormality, Cardiac, Hepatic, Endocrine, Toxicologic, Neurologic, amongst other pathologies entertained. 20 yr old female with history of mental health disorder arrives for mental health evaluation. She is currently 6 months and has no complaints. She adamantly denies she is suicidal nor homicidal. She has multiple previous admissions for psychiatric illness and denies that she is in need of inpatient treatment at this time. She is here on 302 [place] for the second time in 24 hours. Warrant read by me does not in any way describe any actions taken by patient to actively harm self nor of even making suicidal statements. She is eating in the er without issue. She is willing to take her medications. She is well kempt and does not appear to be mistreating herself. Just given fact that this is second trip to ED in 24 hours and that she is well known to Rich I asked them to come evaluate her. She is not intoxicated and I do not feel blood work is necessary, especially given extensive testing done yesterday. 3 [facility] feels that she is safe for discharge and does not meet inpatient criteria. I have declined 302 warrant. She was discharged to home with knowledge that she can return or call 911 at any time. Consults Time Called: 25 Consulting Physician: 3 [facility] mental health liaison Returned Call: 002 Spoke to 3 [facility] health liaison (Nohelia). We discussed that the patient has had a 302 filed against her twice within the past 24 hours for the same complaint. 3 [place] will be down to evaluate the patient. Impression Primary Impression: Mental Health Evaluation Additional Impression: Depression Scribe Attestation The scribe's documentation has been prepared under my direction and personally reviewed by me in its entirety. I confirm that the note above accurately reflects all work, treatment, procedures, and medical decision making performed by me. Departure Information Dispostion Home / Self-Care Referrals Sirena Lim PA-C (PCP) Patient Instructions ED Depression, My [facility] Additional Instructions We are always here to help. Feel free to return of call 911 if concerns you may harm yourself or others. Problem Qualifiers Additional Impression: Depression Depression Type: reactive depression Qualified Codes: F32.9 - Major depressive disorder, single episode, unspecified
[2016-05-12 01:56] VITALS: BP 153/75; PULSE 85; O2SAT 99
== END 2016-05-12 01:56 | disposition home or self-care (01) ==
LOC: C.EDB 23:54 → C.EDA 05-12 01:56
DX: O99.342 Other mental disorders complicating pregnancy, second trimester (principal); F32.9 Major depressive disorder, single episode, unspecified; Z3A.00 Weeks of gestation of pregnancy not specified; F79 Unspecified intellectual disabilities; Z87.891 Personal history of nicotine dependence

== ENCOUNTER 2016-05-14 00:45 | Emergency (ER) | payer OTHER ==
[~2016-05-14] VITALS: Ht 152.4 cm; Wt 62.0 kg
[2016-05-14 00:48] VITALS: TEMP 37.2; Ht 152.4 cm; Wt 62.0 kg
[2016-05-14] MEDS ORDERED: SODIUM CHLORIDE 0.9% 1000ML 1,000 ML IV STA ×2 (00:51)
[2016-05-14 01:05] LABS: COMPLETE YES; EOS % 0.4 %; HEMATOCRIT 36.3 % (37-47); IG% 0.1 %; LYMPH % 7.3 %; LYMPH ABS # 0.57 K/uL (1.2-3.4); MEAN CELL VOLUME 89.2 fL (80-100); MEAN CORPUSCULAR HEMOGLOBIN 30.7 pg (25-34); MEAN CORPUSCULAR HGB CONC 34.4 g/dl (32-36); MEAN PLATELET VOLUME 10.4 fL (7.4-10.4); MONO % 8.4 %; NEUT % 83.8 %; PLATELET COUNT 211 K/uL (130-400); RED BLOOD COUNT 4.07 M/uL (4.2-5.4); WHITE BLOOD COUNT 7.76 K/uL (4.8-10.8)
[2016-05-14] MEDS ORDERED: SERT50TA PO (01:15)
[2016-05-14 01:23] LABS: BUN/CREATININE RATIO 13.3 (10-20); CREATININE 0.65 mg/dl (0.60-1.20); POTASSIUM 3.7 mmol/L (3.5-5.1)
[2016-05-14 01:35] VITALS: BP 130/75; PULSE 94; O2SAT 99
--- NOTE | 2016-05-14 01:48 | EMERGENCY ROOM VISIT NOTE ---
History First contact with patient: 00:50 Chief Complaint: ILLNESS Stated Complaint: NAUSEA/VOMITING/SHAKY History of Present Illness The patient is a 20 year old female who presents to the Emergency Room with complaints of nausea, vomiting for the past few hours is 26 weeks . EMS gave her Zofran and already feels better. Patient falls with [facility]. First . No complications. Patient denies chest pain, dyspnea, fever, chills, abdominal pain, urinary symptoms, vaginal bleeding, vaginal discharge, problems with her . Patient denies suicidal or homicidal ideations. Patient adamant denies any thoughts of hurting her baby or anyone else. Supposedly the roommate stated that the patient made statements about hurting herself and the baby. denies these statements and nurse casework manager, Emilia, did follow-up and states these are false statements. Of note, patient has been in the ER a few times because of the roommate making false statements. Review of Systems See HPI for pertinent positives & negatives. A total of 10 systems reviewed and were otherwise negative. Past Medical/Surgical History Medical Problems: (1) Depression (2) Depressive disorder, atypical (3) Food allergy (4) Intellectual disability (5) Mood disorder NOS (6) No chronic problems (7) past psych meds Family History Patient reports no known family medical history. Social History Smoking Status: Never Smoker Alcohol Use: none Drug Use: none Marital Status: other Housing Status: lives with significant other Occupation Status: employed Current/Historical Medications Scheduled Multivit/Min/Iron/Fol Ac/Pren ( Vitamin), 1 TAB PO DAILY Sertraline (Zoloft), 75 MG PO DAILY Allergies Coded Allergies: No Known Allergies (Unverified , 05/14/16) Physical Exam Vital Signs Date Time Temp Pulse Resp B/P Pulse Ox O2 Delivery O2 Flow Rate FiO2 05/14/16 01:35 94 18 130/75 99 Room Air 05/14/16 00:48 37.2 104 18 138/80 99 Room Air Physical Exam VITALS: Vitals are noted on the nurse's note and reviewed by myself. Vital signs stable. GENERAL: Pleasant female, in no acute distress, nondiaphoretic, well-developed well-nourished. SKIN: The skin was without rashes, erythema, edema, or bruising. There is no tenting of the skin. Capillary reflex less than 2 seconds. HEAD: Normocephalic atraumatic. EARS: External auditory canals clear, tympanic membranes pearly maurer without erythema or effusion bilaterally. EYES: Pupils equal round and reactive to light and accommodation. Conjunctivae without injection, sclerae without icterus. Extraocular movements intact. NOSE: Patent, turbinates without inflammation or discharge. MOUTH: Mucous membranes moist. Pharynx without erythema or exudate. Uvula midline. Airway patent. Tongue does not deviate. NECK: Supple without nuchal rigidity. No lymphadenopathy. No thyromegaly. Cervical spine is nontender. No JVD. HEART: Regular rate and rhythm without murmurs gallops or rubs. LUNGS: Clear to auscultation bilaterally without wheezes, rales or rhonchi. No dullness to percussion. No retractions or accessory muscle use. ABDOMEN: Positive bowel sounds x 4. Normal tympanic percussion. Soft, , no CVA tenderness nontender, without masses or organomegaly. Coyne sign negative. No guarding or rebound tenderness. MUSCULOSKELETAL: No muscle atrophy, erythema, or edema noted. NEURO: Patient was alert and oriented to person place and time. Normal sensation to light and sharp touch. No focal neurological deficits. Psych: Pleasant, cooperative Medical Decision & Procedures Laboratory Results 05/14/16 00:55 Red Blood Count 4.07, Mean Corpuscular Volume 89.2, Mean Corpuscular Hemoglobin 30.7, Mean Corpuscular Hemoglobin Concent 34.4, Mean Platelet Volume 10.4, Neutrophils (%) (Auto) 83.8, Lymphocytes (%) (Auto) 7.3, Monocytes (%) (Auto) 8.4, Eosinophils (%) (Auto) 0.4, Basophils (%) (Auto) 0.0, Neutrophils # (Auto) 6.50, Lymphocytes # (Auto) 0.57, Monocytes # (Auto) 0.65, Eosinophils # (Auto) 0.03, Basophils # (Auto) 0.00 05/14/16 00:55 Test 05/14/16 00:55 White Blood Count 7.76 K/uL (4.8-10.8) Red Blood Count 4.07 M/uL (4.2-5.4) Hemoglobin 12.5 g/dL (12.0-16.0) Hematocrit 36.3 % (37-47) Mean Corpuscular Volume 89.2 fL (80-100) Mean Corpuscular Hemoglobin 30.7 pg (25-34) Mean Corpuscular Hemoglobin Concent 34.4 g/dl (32-36) Platelet Count 211 K/uL (130-400) Mean Platelet Volume 10.4 fL (7.4-10.4) Neutrophils (%) (Auto) 83.8 % Lymphocytes (%) (Auto) 7.3 % Monocytes (%) (Auto) 8.4 % Eosinophils (%) (Auto) 0.4 % Basophils (%) (Auto) 0.0 % Neutrophils # (Auto) 6.50 K/uL (1.4-6.5) Lymphocytes # (Auto) 0.57 K/uL (1.2-3.4) Monocytes # (Auto) 0.65 K/uL (0.11-0.59) Eosinophils # (Auto) 0.03 K/uL (0-0.5) Basophils # (Auto) 0.00 K/uL (0-0.2) RDW Standard Deviation 44.2 fL (36.4-46.3) RDW Coefficient of Variation 13.5 % (11.5-14.5) Immature Granulocyte % (Auto) 0.1 % Immature Granulocyte # (Auto) 0.01 K/uL (0.00-0.02) Anion Gap 12.0 mmol/L (3-11) Est Creatinine Clear Calc Drug Dose 114.5 ml/min Estimated GFR () 149.2 Estimated GFR (Non- 128.7 BUN/Creatinine Ratio 13.3 (10-20) Calcium Level 9.0 mg/dl (8.5-10.1) Medications Administered Medications (Trade) Dose Ordered Sig/Ravin Route Start Time Stop Time Status Last Admin Dose Admin Sodium Chloride 1,000 ml @ 999 mls/hr Q1H1M STAT IV 05/14/16 00:51 05/14/16 01:51 05/14/16 01:00 999 MLS/HR Sodium Chloride (Nss 1000ml) 1,000 ml @ 200 mls/hr Q5H STAT IV 05/14/16 00:51 05/14/16 05:50 05/14/16 01:01 200 MLS/HR ED Course Prior records/ancillary studies reviewed. Triage Nursing notes reviewed. Additional history obtained from the family. The patient's history was concerning for nausea, vomiting, who is 26 weeks Differential diagnosis: Etiologies such as hyperemesis , gastroenteritis, food borne illness, infections, appendicitis, diverticulitis, inflammatory bowel disease, obstruction, GI bleed, biliary pathology, as well as others were entertained. Physical examination findings: As above. Abdominal examination revealed no tenderness. Vital signs reviewed and revealed stable. ER treatment provided: IV hydration 1 L NSS. Patient ate turkey sandwich and fluids without difficulties On reassessment the patient felt better. Patient was tolerating p.o. intake. Diagnostics interpretation by me: The labs revealed no worrisome leukocytosis or electrolyte abnormality heart tones 158 This appears to be consistent with vomiting most likely related to . Patient is well-appearing. She did not have acute abdomen on exam. She ate a full meal without difficulties. Patient does not have acute abdomen on exam. Patient currently denied any thoughts of hurting herself or for baby. verifies this statement. Family feels safe going home and patient does have a therapist. Patient was advised follow-up as scheduled this week with her therapist and OFFICE SECRETARY. She is advised to return to the immediate for vomiting, abdominal pain, thoughts of hurting yourself, thoughts of hurting someone else, worsening signs or symptoms or as needed. By the evaluation outlined above emergent etiologies such as appendicitis, diverticulitis, obstruction, cardiac sources, mesenteric ischemia, aortic pathology, inflammatory bowel disease, renal colic, PUD, biliary pathology, UTI, as well as others were deemed relatively unlikely. The pt informed about the findings as listed above. All questions were answered and pleased with the treatment. Return instructions were outlined and the patient was discharged in stable condition. Outpatient prescription management: zofran Referral: The patient was referred to their primary care physician for follow-up in 2 to 3 days for a recheck of the current condition. Medical Decision As above Impression Primary Impression: Nausea & vomiting Departure Information Dispostion Home / Self-Care Condition GOOD Referrals Sirena Lim PA-C (PCP) Patient Instructions My [facility] Additional Instructions Zofran(odansetron) tablets 4mg: Take one and allow it to dissolve in your mouth every four to six hours as needed for nausea or vomiting. Acetaminophen(Tylenol) may be used for fever or pain. Use 1000mg every six hours as needed. Avoid using more than 3000mg in a 24 hour period. Rest and drink plenty of fluids as tolerated. Slow sips of water or sports drinks are recommended instead of large amounts all at once. Continue current medications. Once your stomach is settled start with a clear liquid diet (jello, soup broth, etc.) and then advance as tolerated. You should avoid full, heavy meals for about 24 hrs from the time your symptoms resolved. Return to the ER for persistent vomiting, fevers, problems, thoughts of hurting yourself, thoughts of hurting others, abdominal pain, chest pains, difficulty breathing, black or bloody stools, worsening of your condition, or as needed. Follow up with your OFFICE SECRETARY in 2-3 days for a recheck of your current condition. Problem Qualifiers Primary Impression: Nausea & vomiting Vomiting type: unspecified Vomiting Intractability: non-intractable Qualified Codes: R11.2 - Nausea with vomiting, unspecified
[2016-05-14] MEDS ORDERED: ONDA4TAB10 SL (01:49)
[2016-05-14 01:59] LABS: URINE APPEARANCE CLEAR (CLEAR); URINE BILIRUBIN NEG (NEG); URINE COLOR YELLOW; URINE EPITHELIAL CELL AUTO >30 /lpf (0-5); URINE NITRITE NEG (NEG); URINE PH 5.5 (4.5-7.5); URINE SPECIFIC GRAVITY 1.028 (1.000-1.030); UROBILINOGEN NEG (NEG); ZZUR CULT IF INDIC CLEAN CATCH YES
[2016-05-14] MEDS ORDERED: ONDANSETRON HOME PACK 4MG OD TAB PO ONE (02:00)
[2016-05-14 02:01] LABS: MANUAL MICROSCOPIC REQUIRED? NO; REVIEW REQ? NO
== END 2016-05-14 01:58 | disposition home or self-care (01) ==
LOC: EDBD 00:45 → C.EDA 00:47
DX: O26.892 Other specified pregnancy related conditions, second trimester (principal); O21.9 Vomiting of pregnancy, unspecified; O99.342 Other mental disorders complicating pregnancy, second trimester; F32.9 Major depressive disorder, single episode, unspecified; F79 Unspecified intellectual disabilities; Z3A.26 26 weeks gestation of pregnancy

== ENCOUNTER 2016-05-23 18:40 | Outpatient (CLI) | payer OTHER ==
[~2016-05-23] VITALS: Ht 152.4 cm; Wt 70.0 kg
[~2016-05-23 18:40] MED LIST changes: +ONDA4TAB10 SL; +SERT50TA PO; -ZLF50 PO
[2016-05-23 20:53] VITALS: Ht 152.4 cm; Wt 70.0 kg
== END 2016-05-23 19:20 | disposition home or self-care (01) ==
LOC: C.OPB 18:40 → C.LD 18:42 → C.OPB 19:20
PROVIDERS: ATTEND Obstetrics & Gynecology
DX: O26.892 Other specified pregnancy related conditions, second trimester (principal); R10.9 Unspecified abdominal pain; Z3A.26 26 weeks gestation of pregnancy

== ENCOUNTER 2016-05-26 17:15 | Outpatient (CLI) | payer OTHER ==
[~2016-05-26 17:15] MED LIST changes: -ONDA4TAB10 SL
== END 2016-05-26 18:30 | disposition home or self-care (01) ==
LOC: C.OPB 17:15 → C.LD 17:15 → C.OPB 18:30
PROVIDERS: ATTEND Obstetrics & Gynecology
DX: O26.892 Other specified pregnancy related conditions, second trimester (principal); R10.9 Unspecified abdominal pain; Z3A.27 27 weeks gestation of pregnancy

== ENCOUNTER 2016-06-03 21:09 | Outpatient (CLI) | payer OTHER ==
[~2016-06-03] VITALS: Ht 162.6 cm; Wt 71.2 kg
[2016-06-03 21:25] VITALS: Ht 162.6 cm; Wt 71.2 kg
--- NOTE | 2016-06-05 10:20 | EDITING REQUIRED CODING QUERY ---
DIAGNOSIS NEEDED To promote full compliance with coding requirements relating to patient care, physician participation is requested in all cases of medical biller coder uncertainty. Please assist us with the question(s) below: Coding Question: The patient received care in labor and delivery on 06/03/16 as noted within the record. Please document the diagnosis that is being addressed by the medication/treatment. Provider Response: DIAGNOSIS: 28 weeks , pressure/pain Thank you for your assistance, Alondra Hagan - Garment Fitter
== END 2016-06-03 21:45 | disposition home or self-care (01) ==
LOC: C.OPB 21:09 → C.LD 21:09 → C.OPB 21:45
PROVIDERS: ATTEND Obstetrics & Gynecology
DX: O26.893 Other specified pregnancy related conditions, third trimester (principal); R10.9 Unspecified abdominal pain; Z3A.29 29 weeks gestation of pregnancy

== ENCOUNTER → 2016-06-10 | Outpatient (CLI) | payer OTHER ==
[~2016-06-10] MED LIST changes: +CEPH500C PO; +MEDR150I IM
[2016-06-10 16:44] LABS: URINE APPEARANCE CLEAR (CLEAR); URINE BILIRUBIN NEG (NEG); URINE COLOR YELLOW; URINE EPITHELIAL CELL AUTO >30 /lpf (0-5); URINE NITRITE NEG (NEG); URINE SPECIFIC GRAVITY 1.019 (1.000-1.030); UROBILINOGEN NEG (NEG)
[2016-06-10 16:48] LABS: REVIEW REQ? NO
[2016-06-10 16:49] LABS: MANUAL MICROSCOPIC REQUIRED? NO
[2016-06-10 18:55] LABS: GTGD 50 Grams
[2016-06-10 19:28] LABS: HEMATOCRIT 32.2 % (37-47)
== END | disposition home or self-care (01) ==
LOC: C.LAB1850 15:22
PROVIDERS: ATTEND Obstetrics & Gynecology
DX: Z34.03 Encounter for supervision of normal first pregnancy, third trimester (principal)

== ENCOUNTER → 2016-07-24 | Outpatient (CLI) | payer OTHER | END | disposition home or self-care (01) | LOC: C.LABSPEC 15:56 | PROVIDERS: ATTEND Obstetrics & Gynecology | DX: Z34.03 Encounter for supervision of normal first pregnancy, third trimester (principal) ==

== ENCOUNTER 2016-08-11 23:11 | Inpatient (IN) | payer OTHER ==
[~2016-08-11] VITALS: Ht 152.4 cm; Wt 75.2 kg
[~2016-08-11 23:11] MED LIST changes: -CEPH500C PO; -MEDR150I IM
[2016-08-11] MEDS ORDERED: LACTATED RINGER'S 1000ML 1,000 ML IV PRN ×2 (23:42→23:46)
[2016-08-11] MEDS ORDERED: LACTATED RINGER'S 1000ML 1,000 ML IV SCH (23:46)
[2016-08-12 00:07] LABS: HEMATOCRIT 31.6 % (37-47); MEAN CELL VOLUME 85.4 fL (80-100); MEAN CORPUSCULAR HEMOGLOBIN 27.8 pg (25-34); MEAN CORPUSCULAR HGB CONC 32.6 g/dl (32-36); MEAN PLATELET VOLUME 10.6 fL (7.4-10.4); PLATELET COUNT 177 K/uL (130-400); WHITE BLOOD COUNT 9.22 K/uL (4.8-10.8)
[2016-08-12 00:16] VITALS: Ht 152.4 cm; Wt 75.2 kg
[2016-08-12] MEDS: LACTATED RINGER'S 1000ML 1,000 ML IV SCH ×4 (07:42→17:27)
[2016-08-12] MEDS ORDERED: LACTATED RINGER'S 1000ML 500 ML IV PRN ×2 (07:59→09:54)
[2016-08-12] MEDS ORDERED: OXYTOCIN 30 UNITS/500ML NSS IV PRN ×2 (08:00→21:30)
[2016-08-12] MEDS ORDERED: SERTRALINE HCL 50 MG TAB PO SCH (08:00)
[2016-08-12] MEDS ORDERED: EpHEDrine SULFATE INJ 50 MG/ML AMP ONE (08:01)
[2016-08-12] MEDS ORDERED: BUPIVACAINE 0.25% 30 ML VIAL ONE (08:01)
[2016-08-12] MEDS ORDERED: FENTANYL 2MCG/ML ROPIV 1.25MG/ML 100ML BAG EPI ONE (08:02)
[2016-08-12] MEDS ORDERED: FENTANYL CITRATE INJ 50 MCG/1 ML 2 ML VIAL ONE (08:02)
[2016-08-12] MEDS ORDERED: FENTANYL 2MCG/ML ROPIV 1.25MG/ML 100ML BAG EPI PRN (10:00)
[2016-08-12] MEDS ORDERED: NALOXONE HCL INJ 0.4 MG/1 ML VIAL/CARP IV PRN (10:00)
[2016-08-12] MEDS ORDERED: EpHEDrine SULFATE INJ 50 MG/ML AMP IV PRN (10:00)
[2016-08-12] MEDS ORDERED: ONDANSETRON INJ 2 MG/ML 2 ML VIAL IV PRN (12:45)
[2016-08-12] MEDS ORDERED: OXYTOCIN INJ 20 UNITS in LACTATED RINGER'S 1000ML 1,000 ML IV SCH (21:18)
[2016-08-12] MEDS ORDERED: SUPERCREAM 0.870 % 15GM JAR EXT PRN (21:30)
[2016-08-12] MEDS ORDERED: ACETAMINOPHEN 325 MG TAB PO PRN (21:30)
[2016-08-12] MEDS ORDERED: ACETAMINOPHEN/CODEINE 300/30MG TAB PO PRN ×2 (21:30)
[2016-08-12] MEDS ORDERED: LANOLIN OINT EXT PRN ×2 (21:30)
[2016-08-12] MEDS ORDERED: VARICELLA VIRUS VACCINE LIVE 1 VIAL SQ. ONE (21:30)
[2016-08-12] MEDS ORDERED: DIPHTHERIA/TETANUS/PERTUSSIS 0.5 ML SYR/VIAL IM. ONE (21:30)
[2016-08-12] MEDS ORDERED: HYDROCORTISONE ACETATE 25 MG SUPP PR PRN (21:30)
[2016-08-12] MEDS ORDERED: BENZOCAINE 20% AER SPR 82.5 GM CAN EXT PRN (21:30)
--- NOTE | 2016-08-12 22:26 | DELIVERY SUMMARY ---
DATE OF OPERATION: 08/12/2016 The patient dilated to complete and began the second stage of pushing with poor maternal expulsive effort. At one point, she became exhausted and requested assistance. Given the exam, complete complete and +4 station, it was recommended to proceed with outlet vacuum-assisted vaginal delivery. Informed consent was obtained. Despite application of the vacuum, the patient continued to provide no maternal expulsive efforts. A midline episiotomy was cut after 1% local lidocaine injection. With 3 pulls and 2 pop-offs, the cephalic was delivered in a direct OP presentation. Shoulders and body were immediately delivered with ease. The nose and mouth were then bulb suctioned. Apgars 8,9. went to the maternal abdomen. The cord was then doubly clamped and cut. Placenta was delivered spontaneously and intact, 3-vessel cord. Hemostasis achieved with dilute Pitocin and uterine massage. The repair was of only a midline episiotomy with no extension, requiring 3-0 Vicryl in the usual fashion. Cervix and sulci intact. Mother and baby stable in recovery. Estimated blood loss 300 mL. I attest to the content of the Intraoperative Record and any orders documented therein. Any exceptions are noted below. MTDD
[2016-08-12 23:30] VITALS: BP 150/79; PULSE 79; TEMP 37
[2016-08-13] MEDS: IBUPROFEN 600 MG TAB PO PRN ×3 (00:23→17:18)
[2016-08-13 00:30] VITALS: BP 145/77
[2016-08-13 03:48] VITALS: BP 127/71; PULSE 61; TEMP 36.8; O2SAT 98
[2016-08-13 06:33] LABS: HEMATOCRIT 31.2 % (37-47)
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
--- NOTE | 2016-08-13 06:50 | Anesthesia Procedure Note ---
Anesthesia Epidural Removal Nt Date & Time August 13, 2016 at 06:50 Vital Signs Pain Intensity: 2 Vital Signs Past 12 Hours Date Time Temp Pulse Resp B/P Pulse Ox O2 Delivery O2 Flow Rate FiO2 08/13/16 03:48 36.8 61 16 127/71 98 Room Air 08/13/16 00:30 145/77 08/13/16 00:30 Room Air 08/12/16 23:30 37.0 79 20 150/79 Room Air Notes Mental Status: alert / awake / arousable, participated in evaluation Nausea / Vomiting: adequately controlled Pain: adequately controlled Airway Patency, RR, SpO2: stable & adequate BP & HR: stable & adequate Hydration State: stable & adequate Neuraxial Anesthesia: was administered Anesthetic Complications: no major complications apparent, pt satisfied with anesthetic care Epidural: removed without complications, with tip intact
[2016-08-13 07:55] VITALS: BP 123/79; PULSE 79; TEMP 36.7; O2SAT 99
[2016-08-13] MEDS ORDERED: MedroxyPROGESTERone ACETATE 150 MG/ML 1 ML VIAL IM ONE (08:30)
[2016-08-13] MEDS: DOCUSATE SODIUM 100 MG CAP PO SCH ×2 (09:02→20:01)
[2016-08-13] MEDS ORDERED: NURSING VERBAL MED ORDER ONE (09:30)
[2016-08-13] MEDS: SERTRALINE HCL 50 MG TAB PO SCH (09:43)
[2016-08-13 13:00] VITALS: BP 138/76; PULSE 83; TEMP 36.8; O2SAT 99
[2016-08-13 16:00] VITALS: BP 143/83; PULSE 80; TEMP 36.7
[2016-08-13 20:15] VITALS: BP 142/81; PULSE 72; TEMP 36.7
[2016-08-14] VITALS: BP 143/85; PULSE 62; TEMP 36.9
--- NOTE | 2016-08-14 07:20 | Discharge Instructions ---
Discharge Instructions Date of Service August 13, 2016. Admission Reason for Admission: Normal Labor; 28 Wk Gestation Of Discharge Discharge Diagnosis / Problem: s/p vaginal delivery Discharge Goals Goal(s): Routine recovery after delivery Medications Continue Dispensed Medications: supercream, dermaplast, tucks Activity Recommendations Activity Limitations: as noted below . Instructions / Follow-Up Instructions / Follow-Up ACTIVITY RECOMMENDATIONS: * Gradual return to full activity over the next 2-3 weeks. * No lifting - nothing heavier than baby over the next 2-3 weeks. * Do not engage in vigorous exercise, sexual activity or sports until cleared by your physician. * Do not drive or operate any motorized equipment until cleared by your physician. * You may shower/bathe daily. MEDICATIONS: For discomfort or pain, you may use Acetaminophen (Tylenol), Ibuprofen (Advil), or Naproxen (Aleve) following the package directions. For constipation you may use Colace following the package directions. BREAST CARE: If you are not breast feeding: * Wear a supportive bra 24 hours a day for one to two weeks. * Avoid stimulating your breasts and nipples as much as possible during the first few weeks after delivery. * When taking a shower, have the warm water hit your back, not breasts. * When your breasts feel full, apply ice packs. Usually three to four times a day helps ease the discomfort. * Take a mild pain medication (Tylenol / Motrin) when you are uncomfortable. If breast feeding: * Use breast milk to lubricate nipples. Lansinoh cream may be used for sore nipples. You do not need to remove cream prior to breast feeding. If using a different brand of cream, check the label for directions regarding removal of cream prior to nursing. * Wear a supportive bra. * If having problems with breasts or breast feeding, call a telecommunications consultant or your health care provider. EPISIOTOMY CARE: After delivery, if you have an episiotomy (stitches), the following steps will ease discomfort and aid healing. * For the first 24 hours after delivery, place ice packs next to your episiotomy to help reduce swelling. * After the first 24 hour-period, sitz baths, either portable or in the tub, are suggested. A shower with a shower arm sprayed over the episiotomy may be comforting. * Alta care should be done after each voiding and bowel movement. Squirt warm water from a plastic bottle over the perineum (region of the body between the anus and urinary opening) and pat dry. * Use Dermoplast to ease discomfort. Shake container. [place] directly over the episiotomy. Place a Tucks on a clean sanitary pad next to your episiotomy. SPECIAL CARE INSTRUCTIONS: When you are discharged from the hospital, it is important for you to follow the instructions listed below: * During the first week at home, you should be able to care for yourself and your baby. In addition, the usual light household activities are encouraged. * Limit your activities to the way you feel. Do not try to clean the house or move furniture. Be sensible. * If you actively engage in sports and have done so up until the time of your delivery, you may resume these activities as soon as you feel able. This may take up to one month or even longer. Use good judgment. * Continue to take your vitamins for at least six weeks after the of your baby. * Your diet need not be limited unless you were on a special diet before your delivery. Breast-feeding mothers need around 2500 calories per day and at least 64-80 ounces of fluid per day (8 to 10 glasses). * You should eat foods from the four major food groups. Crash diets or fad diets are to be avoided. Eating lean meats, fresh fruits and vegetables, low-fat dairy products, high fiber foods and a regular exercise program, will help you get back to your pre- weight without putting your health at risk. * Constipation is sometimes a problem after delivery. Take a mild laxative as needed. If breast feeding, Milk of Magnesia is acceptable to use. You may use a suppository or Fleets enema if no episiotomy. * A daily shower or tub bath is suggested. Be sure to thoroughly and gently dry the perineum. * A bloody vaginal discharge will usually continue until around four weeks post . A small amount of bleeding may continue for as long as six weeks. Vaginal discharge changes from the bright red bleeding after delivery to pink then brownish and finally yellowish-pink before becoming white and disappearing. * Bleeding may increase with activity. Your first period may come in 4-8 weeks. If you are breast feeding, your period may be delayed even longer. * [place] (sex) can begin whenever both you and your partner feel comfortable and do not have any form of genital infection. It is recommended that you wait at least six weeks for internal and external healing to occur. If you have questions, please talk to your health care practitioner. A condom should be used to prevent infection and . * Foreplay, gentle intercourse and lubrication is very important the first several times to prevent pain. A water-based lubricant such as K-Y jelly or Astroglide may be used. * If you have RH negative blood and your baby is RH positive, you will receive RHOGAM by injection prior to discharge. The nurse will give you a card to keep with you that has the date and place that you received RHOGAM after delivery. * During your care, you had a Rubella screen done to check for the presence of rubella antibodies in your blood. If your test was negative, you will receive a Rubella vaccine prior to discharge. This vaccine may cause a fever, soreness at the injection site and flu-like symptoms. If these symptoms persist, notify your health care practitioner. is not advised for one month after a Rubella vaccine. * Verbalizes understanding of car seat law as reviewed with patient nursing. * Car Seat hand-out given and reviewed with patient by nursing. * Shaken baby information reviewed with patient by nursing. Call you doctor if: * Heavy bleeding (saturating several pads an hour) or passing clots the size of your fist. * A fever >101 degrees F (38.3 degrees C) on two occasions four hours apart and /or chills. * Unusual pain in the pelvic or vaginal areas. * "Baby Blues" lasting longer than two weeks. If you have any questions or concerns, call your health care practitioner at . FOLLOW UP VISIT: * Please call the office at to schedule a 6 week examination. It is important you keep this appointment. It is important for you to make arrangements for either yearly or twice yearly check-ups thereafter. Current Hospital Diet Patient's current hospital diet: Regular OB Diet Discharge Diet Recommended Diet: Regular Diet Pending Studies Studies pending at discharge: no Medical Emergencies . Who to Call and When: Medical Emergencies: If at any time you feel your situation is an emergency, please call 911 immediately. . Non-Emergent Contact Non-Emergency issues call your: Engineering Documentation Specialist Call Non-Emergent contact if: you have a fever, temperature is above 101 . . "Provider Documentation" section prepared by Jere Hatch. . VTE Core Measure Inpt VTE Proph given/why not?: Treatment not indicated
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
[2016-08-14 07:45] VITALS: BP 115/78; PULSE 76; TEMP 36.8; O2SAT 95; O2SAT 98
[2016-08-14] MEDS ORDERED: MEDR150I IM (08:05)
[2016-08-14] MEDS ORDERED: MedroxyPROGESTERone ACETATE 150 MG/ML 1 ML VIAL IM ONE (08:30)
[2016-08-14] MEDS: SERTRALINE HCL 50 MG TAB PO SCH (08:44)
[2016-08-14] MEDS: DOCUSATE SODIUM 100 MG CAP PO SCH (08:46)
[2016-08-14] MEDS: IBUPROFEN 600 MG TAB PO PRN (08:46)
[2016-08-14 12:30] VITALS: BP_DIAS 78; PULSE 76; TEMP 36.8
== END 2016-08-14 12:30 | disposition home health service (06) | DRG 775 ==
LOC: C.LD 23:11 → C.OPB 23:11 → C.LD 23:46 → C.OPB 23:46 → C.OBG 08-12 23:13
PROVIDERS: ADMIT Obstetrics & Gynecology; ATTEND Obstetrics & Gynecology
PROC: 10D07Z6 Extraction of Products of Conception, Vacuum, Via Natural or Artificial Opening (ICD-10-PCS; principal; 2016-08-12)
PROC: 0W8NXZZ Division of Female Perineum, External Approach (ICD-10-PCS; principal; 2016-08-12)
DX: O99.344 Other mental disorders complicating childbirth (principal); F41.9 Anxiety disorder, unspecified; F32.9 Major depressive disorder, single episode, unspecified; O76 Abnormality in fetal heart rate and rhythm complicating labor and delivery; O75.81 Maternal exhaustion complicating labor and delivery; O66.5 Attempted application of vacuum extractor and forceps; O99.52 Diseases of the respiratory system complicating childbirth; J45.909 Unspecified asthma, uncomplicated; O99.62 Diseases of the digestive system complicating childbirth; R11.0 Nausea; Z3A.38 38 weeks gestation of pregnancy; Z37.0 Single live birth; Z79.899 Other long term (current) drug therapy

== ENCOUNTER 2016-09-19 19:03 | Emergency (ER) | payer OTHER ==
[~2016-09-19] VITALS: Ht 154.9 cm; Wt 72.7 kg
[~2016-09-19 19:03] MED LIST changes: +MEDR150I IM
[2016-09-19 19:10] VITALS: TEMP 37.3; Ht 154.9 cm; Wt 72.7 kg
[2016-09-19] MEDS ORDERED: SODIUM CHLORIDE 0.9% 1000ML 1,000 ML IV STA (19:49)
[2016-09-19] MEDS ORDERED: SERT50TA PO (19:52)
[2016-09-19 20:30] LABS: BASO % 0.2 %; BASO ABS # 0.02 K/uL (0-0.2); COMPLETE YES; HEMATOCRIT 37.2 % (37-47); IG% 0.1 %; LYMPH % 42.7 %; LYMPH ABS # 3.89 K/uL (1.2-3.4); MEAN CELL VOLUME 84.7 fL (80-100); MEAN CORPUSCULAR HEMOGLOBIN 27.3 pg (25-34); MEAN CORPUSCULAR HGB CONC 32.3 g/dl (32-36); MEAN PLATELET VOLUME 10.9 fL (7.4-10.4); MONO % 5.2 %; NEUT % 48.8 %; PLATELET COUNT 268 K/uL (130-400); RED BLOOD COUNT 4.39 M/uL (4.2-5.4); WHITE BLOOD COUNT 9.12 K/uL (4.8-10.8)
--- NOTE | 2016-09-19 20:30 | EMERGENCY ROOM VISIT NOTE ---
History First contact with patient: 19:40 Chief Complaint: BACK PAIN Stated Complaint: BACK PAIN, History of Present Illness The patient is a 21 year old female who presents to the Emergency Room with complaints of back pain, headache and vaginal sores. The patient states that she had a vaginal delivery 5 weeks ago. She had to give the baby up for adoption. The patient states that yesterday she developed pain in her low back. She states it is at the site of the epidural injection. She rates her discomfort an 8/10. It does not radiate to the legs. She has not had any fevers, numbness, tingling, weakness. She states she has a headache but denies any neck stiffness. She states she also has sores in her vagina. She states she has had some vaginal bleeding. She denies any abdominal pain. She denies any vaginal discharge. She denies any concern for sexual transmitted infection. The patient states that she and her are currently homeless. She states that she has family in the area who will let her stay with them but not her . She states that she would rather be with him and has chosen to be homeless. Review of Systems A 10 system review of systems was completed with positives and pertinent negatives listed in the HPI. Past Medical/Surgical History Medical Problems: (1) Depression Social History Smoking Status: Current Every Day Smoker Housing Status: lives with significant other Current/Historical Medications Scheduled Cephalexin Monohydrate (Keflex), 500 MG PO TID Sertraline (Zoloft), 75 MG PO DAILY Allergies Coded Allergies: No Known Allergies (Unverified , 09/19/16) Physical Exam Vital Signs Date Time Temp Pulse Resp B/P (MAP) Pulse Ox O2 Delivery O2 Flow Rate FiO2 09/19/16 22:36 82 18 145/82 99 09/19/16 19:10 37.3 75 18 144/98 98 Room Air Physical Exam VITALS: Vitals are noted on the nurse's note and reviewed by myself. Vital signs stable. GENERAL: This 21-year-old female, in no acute distress, nondiaphoretic, well- developed well-nourished. SKIN: The skin was without rashes, erythema, edema, or bruising. There is no erythema, warmth, drainage, edema at the site epidural injection. There is no tenting of the skin. Capillary reflex less than 2 seconds. HEAD: Normocephalic atraumatic. EARS: External auditory canals clear, tympanic membranes pearly maurer without erythema or effusion bilaterally. EYES: Pupils equal round and reactive to light and accommodation. Conjunctivae without injection, sclerae without icterus. Extraocular movements intact. NOSE: Patent, turbinates without inflammation or discharge. No sinus tenderness. MOUTH: Mucous membranes moist. Tonsils are not enlarged. Pharynx without erythema or exudate. Uvula midline. Airway patent. Tongue does not deviate. NECK: Supple without nuchal rigidity. No lymphadenopathy. No thyromegaly. Cervical spine is nontender. No JVD. HEART: Regular rate and rhythm without murmurs gallops or rubs. LUNGS: Clear to auscultation bilaterally without wheezes, rales or rhonchi. No retractions or accessory muscle use. ABDOMEN: Positive bowel sounds x 4. Normal tympanic percussion. Soft, nontender, without masses or organomegaly. Coyne sign negative. : External genitalia is normal in appearance. There is scant vaginal bleeding. There is no cervicitis. There are no external genital lesions. There is no significant discharge. There is no cervical motion tenderness. There is no adnexal tenderness or mass. A female RN was present for the examination. Pelvic cultures were obtained. MUSCULOSKELETAL: No muscle atrophy, erythema, or edema noted. Full range of motion without joint tenderness in all extremities. No tenderness to palpation. Normal gait. Strength 5/5 throughout. NEURO: Patient was alert and oriented to person place and time. No focal neurological deficits. Medical Decision & Procedures Laboratory Results 09/19/16 20:13 Red Blood Count 4.39, Mean Corpuscular Volume 84.7, Mean Corpuscular Hemoglobin 27.3, Mean Corpuscular Hemoglobin Concent 32.3, Mean Platelet Volume 10.9, Neutrophils (%) (Auto) 48.8, Lymphocytes (%) (Auto) 42.7, Monocytes (%) (Auto) 5.2, Eosinophils (%) (Auto) 3.0, Basophils (%) (Auto) 0.2, Neutrophils # (Auto) 4.46, Lymphocytes # (Auto) 3.89, Monocytes # (Auto) 0.47, Eosinophils # (Auto) 0.27, Basophils # (Auto) 0.02 09/19/16 20:13 Test 09/19/16 20:13 09/19/16 20:51 White Blood Count 9.12 K/uL (4.8-10.8) Red Blood Count 4.39 M/uL (4.2-5.4) Hemoglobin 12.0 g/dL (12.0-16.0) Hematocrit 37.2 % (37-47) Mean Corpuscular Volume 84.7 fL (80-100) Mean Corpuscular Hemoglobin 27.3 pg (25-34) Mean Corpuscular Hemoglobin Concent 32.3 g/dl (32-36) Platelet Count 268 K/uL (130-400) Mean Platelet Volume 10.9 fL (7.4-10.4) Neutrophils (%) (Auto) 48.8 % Lymphocytes (%) (Auto) 42.7 % Monocytes (%) (Auto) 5.2 % Eosinophils (%) (Auto) 3.0 % Basophils (%) (Auto) 0.2 % Neutrophils # (Auto) 4.46 K/uL (1.4-6.5) Lymphocytes # (Auto) 3.89 K/uL (1.2-3.4) Monocytes # (Auto) 0.47 K/uL (0.11-0.59) Eosinophils # (Auto) 0.27 K/uL (0-0.5) Basophils # (Auto) 0.02 K/uL (0-0.2) RDW Standard Deviation 48.7 fL (36.4-46.3) RDW Coefficient of Variation 15.7 % (11.5-14.5) Immature Granulocyte % (Auto) 0.1 % Immature Granulocyte # (Auto) 0.01 K/uL (0.00-0.02) Urine Color YELLOW Urine Appearance CLEAR (CLEAR) Urine pH 6.5 (4.5-7.5) Urine Specific [place] 1.014 (1.000-1.030) Urine Protein NEG (NEG) Urine Glucose (UA) NEG (NEG) Urine Ketones NEG (NEG) Urine Occult Blood 2+ (NEG) Urine Nitrite NEG (NEG) Urine Bilirubin NEG (NEG) Urine Urobilinogen NEG (NEG) Urine Leukocyte Esterase MODERATE (NEG) Urine WBC (Auto) 10-30 /hpf (0-5) Urine RBC (Auto) >30 /hpf (0-4) Urine Hyaline Casts (Auto) 0 /lpf (0-5) Urine Epithelial Cells (Auto) 20-30 /lpf (0-5) Urine Bacteria (Auto) NEG (NEG) Anion Gap 9.0 mmol/L (3-11) Est Creatinine Clear Calc Drug Dose 96.2 ml/min Estimated GFR () 114.3 Estimated GFR (Non- 98.6 BUN/Creatinine Ratio 15.1 (10-20) Calcium Level 9.5 mg/dl (8.5-10.1) Total Bilirubin 0.3 mg/dl (0.2-1) Aspartate Amino Transf (AST/SGOT) 19 U/L (15-37) Alanine Aminotransferase (ALT/SGPT) 28 U/L (12-78) Alkaline Phosphatase 122 U/L (45-117) Total Protein 8.1 gm/dl (6.4-8.2) Albumin 3.8 gm/dl (3.4-5.0) Globulin 4.3 gm/dl (2.5-4.0) Albumin/Globulin Ratio 0.9 (0.9-2) Date/Time Source Procedure Growth Status 09/19/16 20:51 Vaginal Swab Trichomonas Preparation - Final Complete Medications Administered Medications (Trade) Dose Ordered Sig/Ravin Route Start Time Stop Time Status Last Admin Dose Admin Sodium Chloride 1,000 ml @ 999 mls/hr Q1H1M STAT IV 09/19/16 19:49 09/19/16 20:49 DC 09/19/16 19:49 999 MLS/HR Cephalexin Monohydrate (Keflex 500MG Home Pack) 1 homepack NOW ONCE PO 09/19/16 21:15 09/19/16 21:16 DC 09/19/16 22:31 1 HOMEPACK ED Course The patient was seen and examined. Previous visits were reviewed. The patient does not have a fever or leukocytosis. She does not have any significant electrolyte abnormalities. Urinalysis suggests contamination versus urinary tract infection. Although the patient is largely asymptomatic in regard to the urine, she states she is homeless and does not have a phone. She does not feel that we could contact her if the culture results indicated the need for change in treatment. Therefore, she will be placed on Keflex. The patient also complains of low back pain. She does not have a fever. She does not have any neck stiffness, nuchal rigidity or signs of meningitis. Her epidural was 5 weeks ago. She does not have any numbness, tingling, weakness or radiating pain to the legs. She has not had any neurologic deficit on exam or by history. This may simply be musculoskeletal in nature. She has a follow-up appointment scheduled with [facility] and should keep this appointment. The patient also states she is homeless. Case management was very actively involved in attempting to help the patient and her . Please see their documentation for additional details. The patient should return to ER with any worsening symptoms. Case was discussed with Dr. Lewis who agrees with the assessment and treatment plan. Medical Decision DIFFERENTIAL DIAGNOSIS: Pelvic inflammatory disease, ovarian cyst, ovarian torsion, ovarian rupture, , ectopic , endometriosis, endometritis, urinary tract infection, ruptured ovarian cyst, tubo-ovarian abscess, Lumbar strain, degenerative disc disease, spondylolisthesis, herniated disc, spinal stenosis, osteoporosis, fracture, cauda equina syndrome, neoplasm, infection, inflammatory arthritis, among others. Impression Primary Impression: Urinary tract infection Additional Impression: Low back pain Departure Information Dispostion Home / Self-Care Condition GOOD Prescriptions Cephalexin Monohydrate (Keflex) 500 Mg Cap 500 MG PO TID for 7 Days, #21 CAP Prov: Karena Hardy PA-C 09/19/16 Referrals Sirena Lim PA-C (PCP) Patient Instructions Back Pain - [facility], ED UTI Cystitis Female, [facility] Additional Instructions Keflex every 8 hours for 7 days for urinary tract infection Follow-up with [facility] as scheduled Return if any fevers, worsening back pain, loss of bowel or bladder control, numbness, tingling, weakness in the lower extremities Problem Qualifiers Primary Impression: Urinary tract infection
[2016-09-19 20:33] LABS: URINE APPEARANCE CLEAR (CLEAR); URINE BILIRUBIN NEG (NEG); URINE COLOR YELLOW; URINE EPITHELIAL CELL AUTO 20-30 /lpf (0-5); URINE NITRITE NEG (NEG); URINE PH 6.5 (4.5-7.5); URINE SPECIFIC GRAVITY 1.014 (1.000-1.030); UROBILINOGEN NEG (NEG); ZZUR CULT IF INDIC CLEAN CATCH YES
[2016-09-19 20:35] LABS: MANUAL MICROSCOPIC REQUIRED? NO; REVIEW REQ? NO
[2016-09-19 20:47] LABS: BUN/CREATININE RATIO 15.1 (10-20); CREATININE 0.85 mg/dl (0.60-1.20); POTASSIUM 3.9 mmol/L (3.5-5.1)
[2016-09-19 20:48] LABS: CALCIUM 9.5 mg/dl (8.5-10.1)
[2016-09-19 20:49] LABS: ALB/GLOB RATIO 0.9 (0.9-2)
[2016-09-19] MEDS ORDERED: CEPH500C PO (21:15)
[2016-09-19] MEDS ORDERED: CEPHALEXIN 500MG HOME PACK 1 EA BTL PO ONE (21:15)
[2016-09-19 22:36] VITALS: BP 145/82; PULSE 82; O2SAT 99
[2016-09-23 10:49] LABS: CHLAMYDIA TRACH RNA*** NOT DETECTED (NOT DETECTED); GC (NEIS GONORRHOEAE)RNA** NOT DETECTED (NOT DETECTED)
== END 2016-09-19 22:37 | disposition home or self-care (01) ==
LOC: MERGE 19:06 → C.EDC 19:06
DX: N39.0 Urinary tract infection, site not specified (principal); M54.9 Dorsalgia, unspecified; R51 Headache; N89.8 Other specified noninflammatory disorders of vagina; F32.0 Major depressive disorder, single episode, mild; Z79.899 Other long term (current) drug therapy; F17.200 Nicotine dependence, unspecified, uncomplicated; Z59.0 Homelessness

== ENCOUNTER 2016-10-12 02:46 | Emergency (ER) | payer OTHER ==
[~2016-10-12] VITALS: Ht 154.9 cm; Wt 73.7 kg
[2016-10-12 02:46] VITALS: TEMP 36.9; Ht 154.9 cm; Wt 73.7 kg
[2016-10-12] MEDS ORDERED: ONDANSETRON 4MG OD TAB PO STA (02:56)
[2016-10-12 03:28] LABS: URINE APPEARANCE CLEAR (CLEAR); URINE BILIRUBIN NEG (NEG); URINE COLOR YELLOW; URINE EPITHELIAL CELL AUTO >30 /lpf (0-5); URINE NITRITE NEG (NEG); URINE PH 5.5 (4.5-7.5); URINE SPECIFIC GRAVITY 1.023 (1.000-1.030); UROBILINOGEN NEG (NEG); ZZUR CULT IF INDIC CLEAN CATCH YES
[2016-10-12 03:32] LABS: MANUAL MICROSCOPIC REQUIRED? NO; REVIEW REQ? NO
[2016-10-12 03:51] VITALS: BP 126/74; PULSE 71; O2SAT 98
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
== END 2016-10-12 03:25 | disposition home or self-care (01) ==
LOC: EDBD 02:46 → C.EDB 02:48
DX: R11.0 Nausea (principal); R30.0 Dysuria; F32.9 Major depressive disorder, single episode, unspecified; K21.9 Gastro-esophageal reflux disease without esophagitis; F79 Unspecified intellectual disabilities; Z79.899 Other long term (current) drug therapy; Z79.3 Long term (current) use of hormonal contraceptives; Z59.0 Homelessness

== ENCOUNTER 2017-07-01 20:31 | Emergency (ER) | payer OTHER ==
[~2017-07-01] VITALS: Ht 152.4 cm; Wt 76.8 kg
[2017-07-01 20:38] VITALS: TEMP 36.9; Ht 152.4 cm; Wt 76.8 kg
[2017-07-01] MEDS ORDERED: KETOROLAC TROMETHAMINE 30 MG/ML VIAL IV STA (20:47)
[2017-07-01] MEDS ORDERED: ALBUT/IPRATROP 3MG/0.5MG NEB 3 ML VIAL INH STA (20:47)
[2017-07-01] MEDS ORDERED: ACETAMINOPHEN 325 MG TAB PO STA (20:47)
--- NOTE | 2017-07-01 20:51 | EMERGENCY ROOM VISIT NOTE ---
History Report prepared by Arnaud: Ethan Pierre Under the Supervision of: Dr. John Cuellar M.D. First contact with patient: 20:36 Chief Complaint: CHEST PAIN Stated Complaint: CHEST PAIN Nursing Triage Summary: Pt arrives ALS for evalution of 2-3 week hx of mid sternal/right chestpain. Pt reports pain worsens with inspiration. History of Present Illness The patient is a 21 year old black female with a past medical history of anxiety who presents to the ED with a cc of intermittent chest pain beginning two-three weeks ago. She rates her discomfort as a 5/10 in severity. The patient reports that her pain worsens with breathing in and turning on her side. She reports that her pain is alleviated with laying on her back. She reports that her chest pain comes and goes but can stay for hours. The patient states that she called EMS today when her chest pain returned. She reports that on the way to the ED she was given Aspirin, which she admits helped mildly relieve her pain. The patient states that she was cleaning her bath tub two weeks ago when she fell forward and landed on the ground. Positive productive cough with clear mucous, previous control use a month ago, tobacco use. Negative alcohol use, drug use, surgeries, recent strains, heavy lifting, abnormal bowel movements or urination, prolonged travel, leg pain, a history of blood clots in her legs or lungs. Source of History: patient Onset: two-three weeks ago Position: chest Symptom Intensity: 5/10 Timing: intermittent Modifying Factors (Relieving): other (Aspirin) Associated Symptoms: + cough Note: Negative: leg pain Review of Systems See HPI for pertinent positives and negatives. A total of ten systems were reviewed and were otherwise negative. Past Medical & Surgical Medical Problems: (1) 38 weeks gestation of (2) Abdominal cramping affecting , antepartum (3) Abdominal pain (4) Depression (5) Depression (6) Depressive disorder, atypical (7) Food allergy (8) GERD (gastroesophageal reflux disease) (9) Head ache (10) Intellectual disability (11) Lightheadedness (12) Mood disorder NOS (13) Normal labor (14) past psych meds (15) with 26 completed weeks gestation (16) Substernal chest pain Family History Patient reports no known family medical history. Social History Smoking Status: Current Some Day Smoker Alcohol Use: none Drug Use: none Marital Status: other Housing Status: lives with significant other Occupation Status: employed Current/Historical Medications Scheduled Multivit/Min/Iron/Fol Ac/Pren ( Vitamin), 1 TAB PO DAILY Sertraline Hcl (Zoloft), 100 MG PO DAILY Scheduled PRN Hydroxyzine Pamoate (Vistaril), 25 MG PO TID PRN for Anxiety Allergies Coded Allergies: BEE STING (Verified Allergy, Severe, ANAPHYLAXIS, 08/13/16) Onion (Verified Allergy, Severe, swelling, 08/13/16) Physical Exam Vital Signs Date Time Temp Pulse Resp B/P (MAP) Pulse Ox O2 Delivery O2 Flow Rate FiO2 07/01/17 22:07 70 13 164/93 99 Room Air 07/01/17 21:43 137 20 152/98 97 Room Air 07/01/17 20:42 Room Air 07/01/17 20:41 75 07/01/17 20:38 36.9 72 20 164/103 98 Room Air 07/01/17 20:35 Room Air Physical Exam GENERAL: Awake, alert, well-appearing, NAD HENT: Normocephalic, atraumatic. EYES: Normal conjunctiva. Sclera non-icteric. NECK: Supple. No nuchal rigidity. FROM. RESPIRATORY: CTAB, no rhonchi, wheezing, crackles CARDIAC: RRR, no MRG ABDOMEN: Soft, NTND, BS+ MSK: No chest wall TTP, no LE edema NEURO: GCS 15, CN 2-12 intact, moves all 4s on command SKIN: No rash or jaundice noted. Medical Decision & Procedures ER Provider Diagnostic Interpretation: X-ray: Per my interpretation, radiologist review. CHEST ONE VIEW PORTABLE HISTORY: Atypical CHEST PAIN COMPARISON: Chest 10/10/2015. FINDINGS: The lungs are clear. Cardiac silhouette is normal in size. No pleural effusions. No pneumothorax. IMPRESSION: No acute process. Electronically signed by: Salvador King M.D. 07/01/2017 9:22 PM Dictated Date/Time: 07/01/2017 9:20 PM Laboratory Results 07/01/17 20:15 Red Blood Count 4.56, Mean Corpuscular Volume 86.8, Mean Corpuscular Hemoglobin 28.5, Mean Corpuscular Hemoglobin Concent 32.8, Mean Platelet Volume 10.8, Neutrophils (%) (Auto) 44.8, Lymphocytes (%) (Auto) 40.6, Monocytes (%) (Auto) 10.8, Eosinophils (%) (Auto) 3.1, Basophils (%) (Auto) 0.5, Neutrophils # (Auto ) 2.91, Lymphocytes # (Auto) 2.63, Monocytes # (Auto) 0.70, Eosinophils # (Auto ) 0.20, Basophils # (Auto) 0.03 07/01/17 20:15 Test 07/01/17 20:15 White Blood Count 6.48 K/uL (4.8-10.8) Red Blood Count 4.56 M/uL (4.2-5.4) Hemoglobin 13.0 g/dL (12.0-16.0) Hematocrit 39.6 % (37-47) Mean Corpuscular Volume 86.8 fL (80-100) Mean Corpuscular Hemoglobin 28.5 pg (25-34) Mean Corpuscular Hemoglobin Concent 32.8 g/dl (32-36) Platelet Count 308 K/uL (130-400) Mean Platelet Volume 10.8 fL (7.4-10.4) Neutrophils (%) (Auto) 44.8 % Lymphocytes (%) (Auto) 40.6 % Monocytes (%) (Auto) 10.8 % Eosinophils (%) (Auto) 3.1 % Basophils (%) (Auto) 0.5 % Neutrophils # (Auto) 2.91 K/uL (1.4-6.5) Lymphocytes # (Auto) 2.63 K/uL (1.2-3.4) Monocytes # (Auto) 0.70 K/uL (0.11-0.59) Eosinophils # (Auto) 0.20 K/uL (0-0.5) Basophils # (Auto) 0.03 K/uL (0-0.2) RDW Standard Deviation 47.1 fL (36.4-46.3) RDW Coefficient of Variation 14.8 % (11.5-14.5) Immature Granulocyte % (Auto) 0.2 % Immature Granulocyte # (Auto) 0.01 K/uL (0.00-0.02) Prothrombin Time 10.2 SECONDS (9.0-12.0) Prothromb Time International Ratio 1.0 (0.9-1.1) Activated Partial Thromboplast Time 25.2 SECONDS (21.0-31.0) Partial Thromboplastin Ratio 1.0 Anion Gap 7.0 mmol/L (3-11) Est Creatinine Clear Calc Drug Dose 97.9 ml/min Estimated GFR () 116.0 Estimated GFR (Non- 100.1 BUN/Creatinine Ratio 13.4 (10-20) Calcium Level 9.7 mg/dl (8.5-10.1) Total Bilirubin 0.3 mg/dl (0.2-1) Direct Bilirubin < 0.1 mg/dl (0-0.2) Aspartate Amino Transf (AST/SGOT) 15 U/L (15-37) Alanine Aminotransferase (ALT/SGPT) 22 U/L (12-78) Alkaline Phosphatase 107 U/L (45-117) Troponin I < 0.015 ng/ml (0-0.045) Pro-B-Type Natriuretic Peptide 53 pg/ml (0-450) Total Protein 8.5 gm/dl (6.4-8.2) Albumin 4.0 gm/dl (3.4-5.0) Lipase 158 U/L (73-393) Laboratory results reviewed by me Medications Administered Medications (Trade) Dose Ordered Sig/Ravin Route Start Time Stop Time Status Last Admin Dose Admin Albuterol/ Ipratropium (Duoneb) 3 ml NOW STAT INH 07/01/17 20:47 07/01/17 20:49 DC 07/01/17 21:05 3 ML Ketorolac Tromethamine (Toradol Inj) 30 mg NOW STAT IV 07/01/17 20:47 07/01/17 20:49 DC 07/01/17 21:05 30 MG Acetaminophen (Tylenol Tab) 650 mg NOW STAT PO 07/01/17 20:47 07/01/17 20:49 DC 07/01/17 21:06 650 MG Albuterol (Ventolin Hfa Inhaler) 2 puffs NOW ONCE INH 07/01/17 22:00 07/01/17 22:01 DC 07/01/17 22:06 2 PUFFS ECG Per My Interpretation Indication: chest pain Rate (beats per minute): 72 Rhythm: normal sinus Findings: RBBB (incomplete), T-wave inversion (Lead III), other (Normal intervals, Normal axis, No other ST changes or TWI) ED Course 2033: The patient was evaluated in room B07. A complete history and physical exam was performed. 2156: I reevaluated the patient. Discussed results and discharge instructions: She verbalized understanding and agreement. The patient is ready for discharge. Medical Decision Prior records/ancillary studies reviewed. Triage Nursing notes reviewed. The patient is a 21 year old black female with a past medical history of anxiety who presents to the ED with a cc of intermittent chest pain beginning two-three weeks ago. Differential diagnosis: Etiologies such as cardiac ischemia, aortic dissection, pulmonary embolism, pneumonia, pneumothorax, musculoskeletal, infections, pericarditis, myocarditis , esophageal rupture, gastrointestinal, as well as others were entertained. Patient was seen and evaluated at the bedside. Patient did complain of some mild chest discomfort that has been ongoing for about 2-3 weeks time. Patient does not take OCPs, have lower externally swelling, recent car or plane travel. Patient was given aspirin which she states mildly improved her discomfort. Patient does not state that her chest pain worsens with exertion. Patient denies any dyspnea on exertion orthopnea. On exam the patient is very well- appearing. Patient is not tachypneic, tachycardic, nor hypoxic. Patient did have blood work completed, EKG, troponin, chest x-ray. Of note the patient does admit to smoking from time to time. Patient has a nonischemic EKG and a negative troponin. I do not believe that she has right-sided heart strain. Patient is PE RC of 0 makes PE less likely. Patient has a heart score of less than 4 less likely ACS given her nonischemic EKG and negative troponin. I believe that she likely has an element of bronchitis as the patient does admit to smoking. Patient was feeling mildly improved upon reassessment. The patient was given an albuterol inhaler as well as smoking cessation materials. Patient was given strict follow-up, discharge, and return precautions. All questions were answered. Patient was deemed suitable for outpatient follow-up at this time. Patient agreed with the plan of care and was safely discharged home. Medication Reconcilliation Current Medication List: was personally reviewed by me Blood Pressure Screening Patient's blood pressure: Elevated blood pressure Blood pressure disposition: Referred to PCP Impression Primary Impression: Bronchitis Additional Impressions: Chest pain Encounter for smoking cessation counseling Scribe Attestation The scribe's documentation has been prepared under my direction and personally reviewed by me in its entirety. I confirm that the note above accurately reflects all work, treatment, procedures, and medical decision making performed by me. Departure Information Dispostion Home / Self-Care Referrals Sirena Lim PA-C (PCP) Patient Instructions Chest Pain - [facility], My [facility] Additional Instructions Please return to the emergency department if you have worsening or recurrent symptoms not amenable to at-home treatment. Please call for a follow-up appointment with her primary care physician. Please take your medications as prescribed. If you have other concerns and/or complaints please feel free to also call your primary care physician's office or return the ED for further evaluation, management, and treatment. You were found to have an elevated blood pressure today (>120 sytolic or >90 diastolic). Per medicare guidelines, you need to follow up with this blood pressure screening with your Primary Care Physician (PCP). For a new PCP call [phone]. You may take 600 mg Ibuprofen every 6 hours as needed for pain with food for no more than 2 consecutive days. You may take tylenol 1000 mg every 6 hours as needed for pain. You may take motrin and tylenol separately or at the same time. Take your medications as prescribed. Please consider smoking cessation. Please use your inhaler 2 puffs every 4 hours 1 day then 2 puffs every 6 hours 1 day, then 1 puff every 4 hours 1 day , then 1 puff every 6 hours 1 day. This should help with your cough. You have been examined and treated today on an emergency basis only. This is not a substitute for, or an effort to provide, complete comprehensive medical care. It is impossible to recognize and treat all injuries or illnesses in a single emergency department visit. It is therefore important that you follow up closely with [facility], your PCP, and/or your specialist(s). Call as soon as possible for an appointment. Thank you for your time and consideration. I look forward to speaking with you again soon. Please don't hesitate to call us if you have any questions. Problem Qualifiers Additional Impressions: Chest pain Chest pain type: unspecified Qualified Codes: R07.9 - Chest pain, unspecified
[2017-07-01 21:05] LABS: BASO % 0.5 %; BASO ABS # 0.03 K/uL (0-0.2); EOS % 3.1 %; HEMATOCRIT 39.6 % (37-47); IG# 0.01 K/uL (0.00-0.02); LYMPH % 40.6 %; LYMPH ABS # 2.63 K/uL (1.2-3.4); MEAN CELL VOLUME 86.8 fL (80-100); MEAN CORPUSCULAR HEMOGLOBIN 28.5 pg (25-34); MEAN CORPUSCULAR HGB CONC 32.8 g/dl (32-36); MEAN PLATELET VOLUME 10.8 fL (7.4-10.4); MONO % 10.8 %; NEUT % 44.8 %; NEUT ABS # 2.91 K/uL (1.4-6.5); PLATELET COUNT 308 K/uL (130-400); RED CELL DISTRIBUTION WIDTH CV 14.8 % (11.5-14.5); RED CELL DISTRIBUTION WIDTH SD 47.1 fL (36.4-46.3); WHITE BLOOD COUNT 6.48 K/uL (4.8-10.8)
[2017-07-01 21:14] LABS: PTT PATIENT 25.2 SECONDS (21.0-31.0)
--- NOTE | 2017-07-01 21:23 | DIAGNOSTIC IMAGING REPORT ---
CHEST ONE VIEW PORTABLE HISTORY: Atypical CHEST PAIN COMPARISON: Chest 10/10/2015. FINDINGS: The lungs are clear. Cardiac silhouette is normal in size. No pleural effusions. No pneumothorax. IMPRESSION: No acute process. Electronically signed by: Salvador King M.D. 07/01/2017 9:22 PM Dictated Date/Time: 07/01/2017 9:20 PM
[2017-07-01 21:27] LABS: ALT/SGPT 22 U/L (12-78); AST/SGOT 15 U/L (15-37); BLOOD UREA NITROGEN 11 mg/dl (7-18); CALCIUM 9.7 mg/dl (8.5-10.1); CARBON DIOXIDE 26 mmol/L (21-32); CREATININE 0.84 mg/dl (0.60-1.20); GLUCOSE 94 mg/dl (70-99); LIPASE 158 U/L (73-393); POTASSIUM 3.7 mmol/L (3.5-5.1); SODIUM 138 mmol/L (136-145)
[2017-07-01] MEDS ORDERED: SERT1TAB68 PO (21:30)
[2017-07-01] MEDS ORDERED: HYDR25CA PO (21:30)
[2017-07-01 21:31] LABS: ALKALINE PHOSPHATASE 107 U/L (45-117); TOTAL PROTEIN 8.5 gm/dl (6.4-8.2)
[2017-07-01] MEDS ORDERED: ALBUTEROL HFA 8 GM INHALER INH ONE (22:00)
[2017-07-01 22:07] VITALS: BP 164/93; PULSE 70; O2SAT 99
== END 2017-07-01 22:28 | disposition home or self-care (01) ==
LOC: EDBD 20:32 → C.EDB 20:33
DX: J40 Bronchitis, not specified as acute or chronic (principal); R07.9 Chest pain, unspecified; Z71.6 Tobacco abuse counseling; F32.9 Major depressive disorder, single episode, unspecified; K21.9 Gastro-esophageal reflux disease without esophagitis; F39 Unspecified mood [affective] disorder; F17.210 Nicotine dependence, cigarettes, uncomplicated; Z79.899 Other long term (current) drug therapy; Z91.030 Bee allergy status; Z91.018 Allergy to other foods

== ENCOUNTER 2018-07-27 15:50 | Inpatient (IN) ==
--- NOTE | 2018-07-27 17:32 | History & Physical Report ---
Date of Service July 27, 2018 Assessment & Plan (1) 36 weeks gestation of : Will plan to recheck patient's cervix in a few hours, after ambulation, to rule labor in or out. She is agreeable to this plan. History of Present Illness Chief Complaint: contractions Primary Care Provider: Mylene Glover, 23yo @ 36 5/7 presents with contractions for the past day. She describes them as every 5 minutes now, and they have worsened since yesterday. No vaginal bleeding, no gushing of fluid. + movement. is complicated by bipolar disorder, anxiety, depression. She has asthma and migraine headaches. Her first baby was adopted out. Allergies Allergy/AdvReac Type Severity Reaction Status Date / Time bee venom protein (honey bee) Allergy Severe ANAPHYLAXIS Verified 06/19/18 22:47 onion Allergy Severe swelling Verified 06/19/18 22:47 Home Medications Home Medications Medication Instructions Recorded Confirmed Type PNV cmb#95-ferrous fumarate-FA 1 tab PO ONCE 06/19/18 07/27/18 History [] acetaminophen [Tylenol] 325 mg PO Q6H PRN 06/19/18 06/19/18 History Iron (ferrous sulfate) 325 mg PO BID 07/27/18 07/27/18 History Patient History Social History Preferred Language: Serbian Beliefs That Will Affect Care: None marital status: Current Living Situation: Significant Other Current Living Situation Comment: lives with boyfriendSky. Lives in two bedroom house. Feels Safe at Home: Yes Safety Concerns: Feels Safe At This Time Smoking Status: Former smoker Hx Alcohol Use: No Hx Substance Use: Yes Review of Systems All systems reviewed & are unremarkable except as noted in HPI & below Physical Exam Vital Signs (Past 24 Hours): Last Vital Signs Temp 36.9 C 07/27/18 16:28 Pulse 88 07/27/18 16:34 Resp 18 07/27/18 16:28 BP 136/83 07/27/18 16:34 Physical Exam: Gen AAOx3 NAD CV RRR L CTAB Abd soft gravid NTTP Ext no edema SVE 3-4/70/-2 FHT Cat 1 [place]: Q 5 min
[2018-07-27] MEDS ORDERED: LACTATED RINGER'S 1,000 ML IV PRN (19:37)
[2018-07-27] MEDS ORDERED: OXYTOCIN 30 UNITS/500 ML BAG IV PRN (19:37)
[2018-07-27] MEDS ORDERED: BETAMETH SOD PHOS/ACETATE IA 6 MG/ML IM SCH (19:45)
[2018-07-27] MEDS: LACTATED RINGER'S 1,000 ML IV SCH ×2 (19:57→22:02)
--- NOTE | 2018-07-27 20:00 | Obstetrical Progress Note ---
Date of Service July 27, 2018 Subjective Patient with increasing discomfort with ctx. FHT Cat 1 [place] Q 2 SVE 5-6/80/-2 Admit to L&D, IV fluids, EFM/toco. Will give celestone due to labor. Patient is thinking she would like to avoid epidural. Physical Exam Vital Signs (Past 24 Hours): Last Vital Signs Temp 36.7 C 07/27/18 18:04 Pulse 81 07/27/18 18:08 Resp 18 07/27/18 18:04 BP 139/82 07/27/18 18:08
[2018-07-27 20:11] LABS: Hematocrit (blood only) 33.8 % (37-47); Hemoglobin 10.6 g/dL (12.0-16.0); Mean Corpuscular Volume 82.2 fL (80-100); Mean Platelet Volume 11.1 fL (7.4-10.4); Platelet Count 194 K/uL (130-400); RDW Coefficient of Variation 16.3 % (11.5-14.5); RDW Standard Deviation 47.5 fL (36.4-46.3); Red Blood Count 4.11 M/uL (4.2-5.4); White Blood Count 10.72 K/uL (4.8-10.8)
[2018-07-27 20:13] LABS: Mean Corpuscular Hgb Conc 31.4 g/dL (32-36)
[2018-07-27] MEDS ORDERED: fentaNYL citrate 100 MCG/2 ML VIAL ONE (21:01)
[2018-07-27] MEDS ORDERED: ePHEDrine sulfate 50 MG/ML AMP ONE (21:01)
[2018-07-27] MEDS ORDERED: BUPIVACAINE 0.25% 30 ML VIAL ONE (21:01)
[2018-07-27] MEDS ORDERED: fentaNYL 2MCG/ML ROPIV 1.25MG/ML 100 ML BAG EPI ONE (21:02)
--- NOTE | 2018-07-27 21:18 | Anesthesiology Consultation ---
Date of Service July 27, 2018 Assessment & Plan Chart Review Chart Review: Patient NOT seen in Pre Admission Testing and Acceptable Risk for Labor Epidural Consults Requested none ASA ASA2 Proposed Anesthesia Anesthesia Type: Labor Epidural and CSE Risk / Benefits Reviewed With: PT / POA / Parent / Guardian, Accepts Plan and Informed Consent Obtained NPO Date Last Intake of Fluids: 07/27/18 Time Last Intake of Fluids: 20:00 Date Last Intake of Solids: 07/27/18 Time Last Intake of Solids: 08:30 History Height/Weight Height: 5 ft Weight: 73.936 kg Allergies Allergy/AdvReac Type Severity Reaction Status Date / Time bee venom protein (honey bee) Allergy Severe ANAPHYLAXIS Verified 06/19/18 22:47 onion Allergy Severe swelling Verified 06/19/18 22:47 Medications Home Medications Medication Instructions Recorded Confirmed Last Taken PNV cmb#95-ferrous fumarate-FA 1 tab PO ONCE 06/19/18 07/27/18 07/27/18 [] acetaminophen [Tylenol] 325 mg PO Q6H PRN 06/19/18 06/19/18 3 Weeks Ago ~07/06/18 Iron (ferrous sulfate) 325 mg PO BID 07/27/18 07/27/18 07/27/18 Active Medications Generic Name Dose Route Start Last Admin Trade Name Freq PRN Reason Stop Dose Admin Lactated Ringer's 1,000 mls @ 125 mls/hr 07/27/18 19:45 07/27/18 19:57 Lr IV 07/29/18 19:44 125 mls/hr .Q8H YAMILEX Administration Past Medical History Medical History Anemia Anxiety Asthma Depression Migraine headache Past Anesthesia History No Hx of Anesthesia Complications and No Family Hx of Anesthesia Complications History of PONV No Motion Sickness Screening History of Motion Sickness: No Social History Smoking Status: Former smoker Do You Dip or Chew Tobacco: No Hx Alcohol Use: No Hx Substance Use: Yes substance use type: crack/cocaine and heroin Substance Use Type Other:: last used 3 years ago Last Used Substance Other:: 4 years Exercise / Class Metabolic Activity II 4-5 Yardwork/Stairs/Walk up hill Review of Systems no chest pain or sob Physical Exam Vital Signs Last Vital Signs Temp 36.9 C 07/27/18 20:40 Pulse 154 H 07/27/18 21:14 Resp 18 07/27/18 18:04 BP 131/75 07/27/18 20:40 Pulse Ox 97 07/27/18 21:14 ENMT Mouth: no TMJ abnormality Thyromental Distance: > or= 3.5 Finger Breadths Mallampati Class: II Neck normal visual inspection Respiratory normal respiratory effort Auscultation: lungs clear to auscultation bilaterally Cardiovascular Rate/Rhythm: regular rate and regular rhythm Musculoskeletal Spine: normal cervical ROM Neurologic moves all extremities Psychiatric Orientation: alert and oriented x 3 Testing Laboratory Results 07/27/18 19:59
--- NOTE | 2018-07-27 22:01 | Obstetrical Progress Note ---
Date of Service July 27, 2018 Subjective Comfortable with spinal. FHT Cat 1 [place] Q 1-2 SVE 7/100/0 Physical Exam Vital Signs (Past 24 Hours): Last Vital Signs Temp 36.9 C 07/27/18 20:40 Pulse 82 07/27/18 21:59 Resp 16 07/27/18 21:45 BP 143/66 H 07/27/18 21:59 Pulse Ox 98 07/27/18 21:59
[2018-07-27] MEDS ORDERED: IBUPROFEN 600 MG TAB PO ONE (23:34)
--- NOTE | 2018-07-27 23:41 | Procedure Note ---
Vaginal Delivery Summary Date of Service July 27, 2018 Vaginal Delivery Summary Predelivery diagnoses: 23yo @ 36 08/18, spontaneous labor Postdelivery diagnoses: same Procedure: spontaneous vaginal delivery Surgeon: Dr Wymna Complications: none EBL: 300ml Findings: viable male , Apgars 8/9, weight pending - please see nursery records. Description of delivery: The patient progressed to complete with spinal anesthesia and then began to push. She spontaneously vaginally delivered a viable male , cephalic presentation. Head delivered in SERENA position, no nuchal cord. Anterior, then posterior shoulder, then body delivered. The baby was placed on mother's abdomen and spontaneous cry was heard. The cord was doubly clamped and cut after 1 minute. Cord blood was obtained. The placenta delivered spontaneously intact with 3-vessel cord. Uterus/vagina swept of clot and debris. Pitocin given, uterus became firm. The cervix, vagina, perineum were inspected and no lacerations noted. Excellent hemostasis. Sponge/instrument/needle counts were correct x2. Mother and baby are recovering in stable and good condition in the room.
[2018-07-28] MEDS ORDERED: OXYCODONE/ACETAMINOPHEN 5mg/325mg TAB PO PRN (01:19)
[2018-07-28] MEDS ORDERED: BENZOCAINE 20% AER SPR 82.5 GM CAN EXT PRN (01:19)
[2018-07-28] MEDS ORDERED: DIPHTHERIA/TETANUS/PERTUSSIS 0.5 ML SYR/VIAL IM ONE (01:19)
[2018-07-28] MEDS ORDERED: HYDROCORTISONE ACETATE 25 MG SUPP PR PRN (01:19)
[2018-07-28] MEDS ORDERED: SUPERCREAM 0.870% 15 GM JAR EXT PRN (01:19)
[2018-07-28] MEDS ORDERED: ACETAMINOPHEN 325 MG TAB PO PRN (01:19)
[2018-07-28] MEDS ORDERED: BISACODYL 10 MG SUPP PR PRN (01:19)
[2018-07-28] MEDS ORDERED: OXYTOCIN 30 UNITS/500 ML BAG IV PRN (01:19)
[2018-07-28] MEDS ORDERED: BETAMETH SOD PHOS/ACETATE IA 6 MG/ML IM ONE (01:30)
[2018-07-28 08:25] VITALS: O2SAT 99
--- NOTE | 2018-07-28 08:54 | Obstetrical Progress Note ---
Date of Service July 28, 2018 Assessment & Plan (1) 36 weeks gestation of : PPD#1 doing well, anticipate DC home tomorrow. Subjective Ambulation: ambulating normally Voiding: no voiding problems Passing Gas:: Yes Diet Tolerance:: regular diet Lochia:: Moderate Feeding Type:: breast feeding Physical Exam Vital Signs (Past 24 Hours) Last Vital Signs Temp 36.8 C 07/28/18 07:45 Pulse 88 07/28/18 07:45 Resp 18 07/28/18 07:45 BP 132/79 07/28/18 07:45 Pulse Ox 99 07/28/18 07:45 Gen AAOx3 NAD CV RRR L CTAB Abd soft NTTP fundus firm Ext no edema
[2018-07-28] MEDS ORDERED: PRENATAL VITAMIN 1 TAB PO SCH (09:00)
[2018-07-28] MEDS: IBUPROFEN 600 MG TAB PO PRN (14:56)
[2018-07-28] MEDS ORDERED: BISACODYL 5 MG TABEC PO SCH (20:00)
[2018-07-28] MEDS: DOCUSATE SODIUM 100 MG CAP PO SCH (20:10)
[2018-07-29] MEDS: IBUPROFEN 600 MG TAB PO PRN (06:01)
--- NOTE | 2018-07-29 07:54 | Obstetrical Progress Note ---
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 Stopped a year ago. Wants to restart the medicine Physical Exam Vital Signs (Past 24 Hours): Last Vital Signs Temp 36.9 C 07/29/18 03:40 Pulse 76 07/29/18 03:40 Resp 18 07/29/18 03:40 BP 112/74 07/29/18 03:40 Pulse Ox 99 07/28/18 07:45 Gastrointestinal (Abdomen): Fundus firm at U Musculoskeletal: (-) deep valery tenderness Psychiatric: Suicidal Thoughts: denies suicidal thoughts Insight: good insight Judgement: good judgement
[2018-07-29] MEDS: DOCUSATE SODIUM 100 MG CAP PO SCH (08:50)
[2018-07-29] MEDS ORDERED: SERTRALINE HCL 50 MG TABLET PO SCH (09:00)
[2018-07-29 16:44] VITALS: BP 144/82; PULSE 84; TEMP 98.4
== END 2018-07-29 20:20 | disposition home or self-care (01) | DRG 807 ==
LOC: OPB 15:50 → 4S1 15:52 → 4S2 07-28 02:19

== ENCOUNTER 2019-08-29 21:23 | Observation (INO) ==
[2019-08-29] MEDS ORDERED: ACETAMINOPHEN 325 MG TAB PO STA (21:48)
--- NOTE | 2019-08-29 22:05 | Emergency Department Note ---
History of Present Illness General Chief complaint: Abdominal Pain Stated complaint: 19 WEEKS , ABD PAIN Time Seen by Provider: 08/29/19 21:39 History of Present Illness Maximum Pain Intensity: 8 This is a 24-year-old female that presents to the emergency department via private vehicle with complaints of "19 weeks , abdominal pain". The patient states that she has been vomiting throughout the and this is not new. However, yesterday she developed right-sided abdominal pain shortly after picking up her son therefore she thought it was musculoskeletal. She has been trying to deal with the pain since that time but notes an increase of pain. She denies any vaginal bleeding or discharge. No fevers or chills. No diarrhea. No known trauma or other injury. No chest pain or shortness of breath. She does have an PHARMACY AFFAIRS ASSISTANT appointment this upcoming Friday. She points to the right upper quadrant and right lower quadrant as a location of pain that she currently rates as an 8/10. It is somewhat worse with movement. No alleviating factors. Home Medications Home Medications Medication Instructions Recorded Confirmed Type epinephrine [EpiPen 2-[place]] 0.3 mg IM Q15M PRN 08/29/19 08/29/19 History Allergies Allergy/AdvReac Type Severity Reaction Status Date / Time bee venom protein (honey bee) Allergy Severe Anaphylaxis Verified 08/29/19 22:16 onion Allergy Severe swelling Verified 08/29/19 22:16 Past Med/Surg History Medical History Anemia (Chronic) Anxiety (Chronic) Cerumen impaction (Resolved) Depression (Chronic) Depressive disorder, atypical (Chronic) Food allergy (Chronic) History of tobacco abuse stopped in 2017 Intellectual disability (Chronic) Migraine headache (Chronic) Routine gynecological examination Unspecified episodic mood disorder (Chronic) Unspecified psychosis (Resolved) Surgical History S/P dilation and curettage Family History Other Adopted Social History Preferred Language: Vietnamese Communication Ability: Effective Visual Impairment: No Limitations Hearing Ability: Normal Locomotive Mechanic Required: No Beliefs That Will Affect Care: None marital status: marital status details: Sky Li (27) Current Living Situation: Family Current Living Situation Comment: Lives with boyfriend, Sky Li and son, cat-fob changing litter current occupational status: disabled Feels Safe at Home: Yes Safety Concerns: Feels Safe At This Time Smoking Status: Former smoker Do You Dip or Chew Tobacco: No ; Second Hand Exposure: Yes ; Hx Alcohol Use: No Hx Substance Use: No Childhood Exposure to Second-Hand Smoke: No caffeine: Yes Dental Care, Regularly: Yes Physical Activity Frequency: Daily Physical Activity Frequency Comment: walking Seatbelt Use: always Review of Systems A total of 10 systems reviewed and were otherwise negative Physical Exam Vital Signs Vital Signs - 24 hr 08/29/19 21:25 08/29/19 23:53 Temperature 37.3 C Temperature Source Oral Pulse Rate 78 Pulse Rate [Right] 82 Respiratory Rate 16 16 Respiratory Effort / Characteristics Non-Labored Spontaneous Non-Labored Spontaneous Respiratory Depth Normal Normal Blood Pressure 133/60 Blood Pressure [Right Arm] 144/65 H Blood Pressure Mean 84 Blood Pressure Mean [Right Arm] 91 Blood Pressure Position [Right Arm] Lying Pulse Oximetry 98 99 Oxygen Delivery Method Room Air Room Air Sepsis Recent Fever Within 48 Hours No Sepsis Action Taken by Nursing No Action Required VITAL SIGNS - Vital signs and nursing notes were reviewed. Stable and afebrile. GENERAL -24-year-old female appearing her stated age who is in no acute distress. Communicates well with provider and answers questions appropriately. SKIN - Without rashes. No meningeal or petechial rash. HEAD - NC/AT. EYES - PERRL with EOMI bilaterally. Sclera anicteric. EARS - No deformities of external structures noted on gross examination bilaterally. NOSE - Midline and without cyanosis. No epistaxis or purulent drainage noted. MOUTH/OROPHARYNX - Without perioral cyanosis. Buccal mucosa pink and moist and without leukoplakia. Tongue midline with equal elevation of palate bilaterally. No tonsillar hypertrophy, erythema, or exudates noted. Good dentition noted. NECK - Neck with FROM. LUNGS - Chest wall symmetric without accessory muscle use, intercostals retractions, or central cyanosis. Normal vesicular breath sounds CTA B/L. No wheezes, rales, or rhonchi appreciated. CARDIAC - RRR with S1/S2. No murmur, rubs, or gallops appreciated. ABDOMEN - Abdominal contour normal without pulsations or visible masses other than the expected gestation. BS normoactive all four quadrants. No ascites. There is right upper quadrant and right lower quadrant abdominal tenderness to palpation. No rigidity. Abdomen is soft. EXTREMITIES - No clubbing or peripheral cyanosis. No pretibial edema present. +5/5 strength noted in UE/LE bilaterally. NEUROLOGIC - Cranial nerves II through XII grossly intact. Sensory intact to light touch throughout. PSYCH - A&O, and cooperates fully with examiner. Pt is very pleasant and interacts well with examiner. Course Administered Medications Piperacillin Sod/Tazobactam (Sod 3.375 gm/ Dextrose) 115 mls @ 200 mls/hr IV Q6H [facility]; Protocol Stop: 09/09/19 03:59 Last Infusion: 08/30/19 04:16 Dose: 0 mls/hr Documented by: [id number] Admin: 08/30/19 03:38 Dose: 200 mls/hr Documented by: [id number] Sodium Chloride (Nss 1000ml) 1,000 mls @ 75 mls/hr IV .[id number] YAMILEX Stop: 08/30/19 15:29 Last Admin: 08/30/19 03:38 Dose: 75 mls/hr Documented by: [id number] Discontinued Medications Acetaminophen (Tylenol) 650 mg PO NOW STA Stop: 08/29/19 21:49 Last Admin: 08/29/19 21:54 Dose: 650 mg Documented by: [id number] Magnesium Sulfate/Dextrose (Magnesium Sulfate / D5w) 1 gm in 100 mls @ 100 mls/hr IV NOW STA Stop: 08/30/19 01:48 Last Infusion: 08/30/19 01:57 Dose: 0 mls/hr Documented by: [id number] Admin: 08/30/19 00:56 Dose: 100 mls/hr Documented by: [id number] Medical Decision Making Laboratory Data Result diagrams: 08/29/19 21:57 08/29/19 21:57 Lab Results 08/29/19 08/29/19 08/29/19 Range/Units 21:57 21:57 23:30 WBC 9.50 (4.8-10.8) K/uL RBC 4.11 L (4.2-5.4) M/uL Hgb 11.8 L (12.0-16.0) g/dL Hct 36.0 L (37-47) % MCV 87.6 (80-100) fL MCH 28.7 (25-34) pg MCHC 32.8 (32-36) g/dL RDW Std Deviation 43.2 (36.4-46.3) fL RDW Coeff of Beverley 13.5 (11.5-14.5) % Plt Count 294 (130-400) K/uL MPV 10.4 (7.4-10.4) fL Immature Gran % (Auto) 0.2 % Neut % (Auto) 56.0 % Lymph % (Auto) 36.1 % Mccone % (Auto) 5.9 % Eos % (Auto) 1.7 % Baso % (Auto) 0.1 % Immature Gran # (Auto) 0.02 (0.00-0.02) K/uL Neut # (Auto) 5.32 (1.4-6.5) K/uL Lymph # (Auto) 3.43 H (1.2-3.4) K/uL Mccone # (Auto) 0.56 (0.11-0.59) K/uL Eos # (Auto) 0.16 (0-0.5) K/uL Baso # (Auto) 0.01 (0-0.2) K/uL Sodium 138 (136-145) mmol/L Potassium 3.6 (3.5-5.1) mmol/L Chloride 106 (98-107) mmol/L Carbon Dioxide 22 (21-32) mmol/L Anion Gap 10.0 (3-11) BUN 8 (7-18) mg/dl Creatinine 0.60 (0.6-1.2) mg/dl Est Cr Clr Drug Dosing Not Reportable Est GFR ( Amer) 148.9 Est GFR (Non-Af Amer) 128.5 BUN/Creatinine Ratio 13.1 (10-20) Glucose 85 (70-99) mg/dl Calcium 10.0 (8.5-10.1) mg/dl Magnesium 1.2 L (1.8-2.4) mg/dl Total Bilirubin 0.1 L (0.2-1) mg/dl AST 16 (15-37) U/L ALT 23 (12-78) U/L Alkaline Phosphatase 115 (45-117) U/L Total Protein 7.4 (6.4-8.2) gm/dl Albumin 2.8 L (3.4-5.0) gm/dl Globulin 4.6 H (2.5-4.0) gm/dl Albumin/Globulin Ratio 0.6 L (0.9-2) Lipase 199 (73-393) U/L Urine Color Yellow Urine Appearance Clear (Clear) Urine pH 7.5 (4.5-7.5) Ur Specific Lamy 1.018 (1.000-1.030) Urine Protein Negative (Negative) Urine Glucose (UA) Negative (Negative) Urine Ketones Negative (Negative) Urine Blood Negative (Negative) Urine Nitrite Negative (Negative) Urine Bilirubin Negative (Negative) Urine Urobilinogen Negative (Negative) Ur Leukocyte Esterase 2+ H (Negative) Urine WBC (Auto) 10-30 H (0-5) /hpf Urine RBC (Auto) 0-4 (0-4) /hpf U Hyaline Cast (Auto) 1-5 (0-5) /lpf U Epithel Cells (Auto) >30 H (0-5) /lpf Urine Bacteria (Auto) 1+ H (Negative) Imaging Data Radiologist's Impression: US RUQ: There is mild thickening and irregularity of the gallbladder wall which demonstrates mild hyperemia. There are several tiny 2-3 mm gallstones versus sludge along the gallbladder wall. Sonographic Coyne sign is negative. Consider cholecystitis. The pancreas, aorta, IVC, liver and right kidney are within normal limits. The common bile duct is nondilated measuring 2 mm. US APPENDIX: Images of the right lower quadrant are unremarkable. The appendix is not visible. US OB 2nd TRIMESTER: The cervix measures 3.2 cm and is closed. The placenta is anterior. There is a Matias Barrow contraction which resolves at the end of the examination. Right ovary measures 2.2 x 2.7 x 1.9 cm with normal Doppler blood flow. The left ovary is obscured. Single intrauterine fetus in a breech presentation. heart rate 149 bpm. Biparietal diameter 4.28 cm consistent with 18 weeks 0 days Head circumference 1625 cm consistent 19 weeks 3 days Abdominal circumference 16.68 cm consistent with 21 weeks 5 days Femur length 3.2 cm consistent with 20 weeks 0 days Estimated weight 371 g, 89th percentile. Estimated gestational age 19 weeks 5 days. Estimated date of delivery January 18, 2020 Radiologist: Florencio Cortes MD Study ready at 00:04 and initial results transmitted at 00:27 MDM Narrative Patient was seen and evaluated as above in room C10. Review was performed of nursing notes and vital signs. I did review pertinent previous visits and patient history. After obtaining a thorough history and physical examination the above work up was performed. She presents to us today with right-sided abdominal pain. She is tender on exam the right upper quadrant and right lower quadrant. IV access was established. She was given p.o. Tylenol for pain. Th ere is no leukocytosis. Mild anemia. No emergent metabolic disturbance other than the hypomagnesemia. Patient was educated on benefit versus risks of IV magnesium and through shared decision making decision was made to replete the magnesium intravenously. Ultrasound of the gallbladder is concerning for cholecystitis. Appendix was not seen. The fetus ultrasound was normal. Given the presentation with the positive finding on the ultrasound it is felt that further evaluation and management is warranted in the inpatient setting. Patient was amenable to staying. Case discussed with the general surgery team as well as the hospitalist. Please refer to further documentation regarding the patient's stay. While in the department, I personally reevaluated the patient several times and each time the patient was found to be resting comfortably. The patient was educated upon management, educated upon todays findings/results, and was admitted to the hospital. Case was discussed with the attending physician. In the evaluation and treatment of this patient, the following differential di agnoses were considered: ASC, [place], Pneumonia, GERD, Cholecystitis, Ascending Cholangitis, Cholydocholithiasis, Bowel Obstruction, PE, Amongst Others. Impression & Plan RUQ pain, Abnormal gallbladder ultrasound, Vomiting, Hypomagnesemia Discharge Plan Visit Data *Final* Discharge Date/Time: 08/30/19 01:56 Chief Complaint: Abdominal Pain Stated Complaint: 19 WEEKS , ABD PAIN ED Provider: Victoriano Monte ED Midlevel Provider: Marcin Portillo Discharge Problem: RUQ pain, Abnormal gallbladder ultrasound, Vomiting, Hypomagnesemia Patient Disposition: Admitted As Inpatient Condition: Good Discharge Instructions Interventions: ED Discharge Assessment Last Done: 08/30/19 01:56
[2019-08-29 22:09] LABS: Basophils # (auto) 0.01 K/uL (0-0.2); Basophils % (auto) 0.1 %; Eosinophils # (auto) 0.16 K/uL (0-0.5); Eosinophils % (auto) 1.7 %; Hemoglobin 11.8 g/dL (12.0-16.0); Immature Granulocytes # (auto) 0.02 K/uL (0.00-0.02); Immature Granulocytes % (auto) 0.2 %; Lymphocytes # (auto) 3.43 K/uL (1.2-3.4); Lymphocytes % (auto) 36.1 %; Mean Corpuscular Hemoglobin 28.7 pg (25-34); Mean Corpuscular Hgb Conc 32.8 g/dL (32-36); Mean Corpuscular Volume 87.6 fL (80-100); Mean Platelet Volume 10.4 fL (7.4-10.4); Monocytes # (auto) 0.56 K/uL (0.11-0.59); Monocytes % (auto) 5.9 %; Neutrophils # (auto) 5.32 K/uL (1.4-6.5); Platelet Count 294 K/uL (130-400); RDW Coefficient of Variation 13.5 % (11.5-14.5); RDW Standard Deviation 43.2 fL (36.4-46.3); Red Blood Count 4.11 M/uL (4.2-5.4)
[2019-08-29 22:23] LABS: Alanine Aminotransferase 23 U/L (12-78); Albumin Level 2.8 gm/dl (3.4-5.0); Aspartate Aminotransferase 16 U/L (15-37); BUN Creatinine Ratio 13.1 (10-20); Blood Urea Nitrogen 8 mg/dl (7-18); Carbon Dioxide 22 mmol/L (21-32); Chloride 106 mmol/L (98-107); Est GFR (African American) 148.9; Est GFR (Non-African American) 128.5; Glucose 85 mg/dl (70-99); Lipase 199 U/L (73-393); Magnesium 1.2 mg/dl (1.8-2.4); Potassium 3.6 mmol/L (3.5-5.1); Sodium 138 mmol/L (136-145)
[2019-08-29 22:26] LABS: Albumin Globulin Ratio 0.6 (0.9-2); Alkaline Phosphatase 115 U/L (45-117); Bilirubin,Total 0.1 mg/dl (0.2-1); Globulin 4.6 gm/dl (2.5-4.0); Total Protein 7.4 gm/dl (6.4-8.2)
[2019-08-29 23:46] LABS: Appearance Urine Clear (Clear); Bacteria Urine Automated 1+ (Negative); Bilirubin Urine Negative (Negative); Blood Urine Negative (Negative); Color Urine Yellow; Epithelial Cell Urine Auto >30 /lpf (0-5); Glucose Urine UA Negative (Negative); Ketones Urine Negative (Negative); Leukocyte Esterase Urine 2+ (Negative); Nitrite Urine Negative (Negative); Protein Urine Negative (Negative); RBC Urine Automated 0-4 /hpf (0-4); Specific Gravity Urine 1.018 (1.000-1.030); Urobilinogen Urine Negative (Negative); pH Urine 7.5 (4.5-7.5)
[2019-08-30] MEDS ORDERED: MAGNESIUM SULFATE / D5W 1 GM/100 ML BAG IV STA (00:49)
--- NOTE | 2019-08-30 01:27 | Surgery Consultation ---
Date of Consultation August 30, 2019 Assessment & Plan (1) Abdominal pain: -concern for cholecystitis noted on US -discussed with surgical attending: -due to would ideally try to hold on surgical intervention and treat medically -will have OB se in am (she see [facility]ED [employer]PRESENTATIVE and had appt. scheduled for 2 days from today) -discussed with hospitalist who is planning the following: -pain control measures -abx--zosyn is planned -due to UA results a culture has been sent -surgery will follow while in hospital Supervising Physician Co-Signing Physician Notes Patient seen and examined, labs and imaging reviewed, agree with above. 24-year-old female that is 20 weeks presented to the emergency department with right upper quadrant abdominal pain. This is been intermittent over the past 13 months since the of her last child. There is no association with food. She states Friday she bent over to pick something up and noticed the pain in her right side. She denies any nausea vomiting or diarrhea. She had an ultrasound that was read by sirena as having cholelithiasis with concern for cholecystitis. She was admitted to the hospitalist service for observation and surgery was consulted. On exam she is afebrile with stable vitals. On abdominal exam she has a gravid uterus just above her umbilicus. She has no tenderness to palpation. Labs are unremarkable. Formal ultrasound read this morning shows possibility of some small gallstones within a regular wall, but no cholecystitis. At this point her symptoms may or may not be related to her gallbladder. We discussed her options to include a HIDA scan which is usually not recommended in . We also discussed the risks of surgery and anesthesia to the fetus and causing premature delivery. At this point we agreed that she would be better off try to manage symptoms with diet modifications to avoid fatty foods. She was given return precautions and told to return if she developed significant pain, jaundice, or o ther concerning symptoms. She can follow-up after delivery for further work-up and consideration of cholecystectomy. The differential diagnosis, work-up, treatment options, and plan of care discussed the patient, all questions were answered, the patient expressed understanding agrees the plan of care as stated. ABDOMINAL ULTRASOUND, RIGHT UPPER QUADRANT HISTORY: RUQ/R sided abd pain. COMPARISON: Abdominal ultrasound 04/09/2016. FINDINGS: Pancreas: The pancreas demonstrates a normal echotexture. Liver: Unremarkable. Gallbladder: Mild irregularity versus echogenic foci along the gallbladder wall. There appears be a trace amount of gallbladder sludge. No definite gallstones identified. Gallbladder wall measures up to 2.3 mm in thickness. Negative sonographic Coyne's sign. Mild hyperemia along the gallbladder wall, unchanged. CBD: 2.3 mm. Right kidney: No hydronephrosis. IMPRESSION: Mild irregularity versus echogenic foci along the gallbladder wall. There may be a trace amount of gallbladder sludge. No definite gallstones. This is indeterminate but less likely to represent acute cholecystitis given the negative sonographic Coyne's sign. Clinical correlation recommended. History of Present Illness Attending Physician: 24 year old female who is 19 weeks presented to ED due to RUQ abdominal pain. She notes this has been present x 13 months, but became worse last night. She notes she lifted her son which made pain worse. She notes it is unrelated to meals, no fevers, N/V, change in bowel habits. Her weight has been increasing with her as expected. She notes her apatite is normal. She feels as though her pain is worse when she sits for prolonged periods of time. In the ED, LFTs were normal as was her WBC. Abdominal US showed unremarkable RLQ with a non-visualized appendix. The RUQ showed a non-dilated CBD and the GB has gallstones with some thickening of the GB. UA showed pyuria with (+) leukocyte esterase. At the time of my exam she was in no distress. Allergies Allergy/AdvReac Type Severity Reaction Status Date / Time bee venom protein (honey bee) Allergy Severe Anaphylaxis Verified 08/29/19 22:16 onion Allergy Severe swelling Verified 08/29/19 22:16 Home Medications Home Medications Medication Instructions Recorded Confirmed Type epinephrine [EpiPen 2-Destin] 0.3 mg IM Q15M PRN 08/29/19 08/29/19 History Patient History Medical History Anemia (Chronic) Anxiety (Chronic) Cerumen impaction (Resolved) Depression (Chronic) Depressive disorder, atypical (Chronic) Food allergy (Chronic) History of tobacco abuse stopped in 2017 Intellectual disability (Chronic) Migraine headache (Chronic) Routine gynecological examination Unspecified episodic mood disorder (Chronic) Unspecified psychosis (Resolved) Surgical History S/P dilation and curettage Family History Other Adopted Social History Preferred Language: Burmese Communication Ability: Effective Visual Impairment: No Limitations Hearing Ability: Normal Power Distribution Engineer Required: No Beliefs That Will Affect Care: None marital status: marital status details: Sky Li (27) Current Living Situation: Family Current Living Situation Comment: Lives with boyfriend, Sky Li and son, cat-fob changing litter current occupational status: disabled Feels Safe at Home: Yes Safety Concerns: Feels Safe At This Time Smoking Status: Former smoker Do You Dip or Chew Tobacco: No ; Second Hand Exposure: Yes ; Hx Alcohol Use: No Hx Substance Use: No Childhood Exposure to Second-Hand Smoke: No caffeine: Yes Dental Care, Regularly: Yes Physical Activity Frequency: Daily Physical Activity Frequency Comment: walking Seatbelt Use: always Review of Systems Constitutional: no fever and no chills Eyes: no diplopia Ear, Nose, Mouth, Throat: no ear pain Respiratory: no cough and no dyspnea Cardiovascular: no chest pain Gastrointestinal: + abdominal pain; no nausea and no vomiting Genitourinary: no dysuria Musculoskeletal: no back pain Integumentary: no rash Neurologic: no localized weakness Physical Exam Constitutional: well developed and well nourished; no acute distress Eyes: no jaundice ENMT: Ears: no hearing impairment Neck: trachea midline Respiratory: normal respiratory effort, lungs clear to auscultation Cardiovascular: Rate/Rhythm: regular rate and regular rhythm Vessels: dorsalis pedis pulses present and radial pulses present Gastrointestinal (Abdomen): abdomen is enlarged (consistent with ); BS are normal; pain with palpation in RUQ with no rebound tenderness or guarding Musculoskeletal: no calf tenderness Skin: no rashes, warm and dry Neurologic: moves all extremities Psychiatric: A+Ox3, euthymic affect Results & Data Vital Signs (Past 12 Hours) Vital Signs Temp Pulse Pulse Resp BP BP Pulse Ox 08/29/19 23:53 82 16 144/65 H 99 08/29/19 21:25 37.3 C 78 16 133/60 98 PG Care Time/CCT Total # of Minutes Spent Total Time Spent with Patient: Total time spent is greater than 50% in coordination of care (as documented) at patient's floor/unit and/or counseling patient: Coding Level of Care Code 40199 Inpt Consult Level 4 Diagnoses Abdominal pain R10.9
--- NOTE | 2019-08-30 01:42 | History & Physical Report ---
Date of Service August 30, 2019 Assessment & Plan (1) RUQ pain: 24yo AA female at 20 weeks presenting with RUQ pain. RUQUS wtih gallstones present, possible sludge, consider cholecystitis. On exam she is afebrile, hemodynamically stable, nontoxic in appearance, labs are relatively unremarkable to include normal WBC and LFTs. She does have mild anemia and hypomagnesemia. ?degree of chronic cholecystitis, ?musculoskeletal etiology as pain started as she was picking up her son?. -Observation to medical floor -NPO -Repeat labs in AM, CBC, Chemistry, LFTs -Zosyn 3.375gm IV q 8 hours -General Surgery consultation appreciated -OB Consulatation appreciated -Tylenol as needed for pain Present on Admission?: Yes (2) : at 20 weeks. Patient has a 3 year old son and a 13 month old son at home. She reports uncomplicated . She follows routinely with OB. US performed today unremarkable. -Continue PNV daily -OB consultation appreciated F/E/N - NS at 75mL/hr x 1 liter, Mg repleted - repeat level in AM, NPO for now Ppx - Encourage ambulation Code - Full Dispo - Observation to medical floor Admission and Anticipated Discharge Date Admission Date: 08/30/19 Anticipated date of discharge: 08/31/19 History of Present Illness Chief Complaint: RUQ pain Primary Care Provider: DO Lu Ramsay Rip is a 24yo AA female at 20 weeks presenting with RUQ pain. She states that she has had occasional abdominal and RUQ discomfort since the of her second child 13 months ago. That discomfort seemed to be brought on by movement. Symptoms acutely worsened 2 days ago after picking up her son. Located in RUQ, bandlike across upper abdomen. She denies nausea/vomiting/diarrhea or constipation. Denies fevers/chills/CP/SOB. No additional complaints at this time. ER Course: Tylenol. Magnesium Allergies Allergy/AdvReac Type Severity Reaction Status Date / Time bee venom protein (honey bee) Allergy Severe Anaphylaxis Verified 08/29/19 22:16 onion Allergy Severe swelling Verified 08/29/19 22:16 Home Medications Home Medications Medication Instructions Recorded Confirmed Type epinephrine [EpiPen 2-Destin] 0.3 mg IM Q15M PRN 08/29/19 08/29/19 History Past Med/Surg History Medical History (Updated 08/30/19 @ 02:09 by Karena Cortes DO) Anemia (Chronic) Anxiety (Chronic) Cerumen impaction (Resolved) Depression (Chronic) Depressive disorder, atypical (Chronic) Food allergy (Chronic) History of tobacco abuse stopped in 2017 Intellectual disability (Chronic) Migraine headache (Chronic) Routine gynecological examination Unspecified episodic mood disorder (Chronic) Unspecified psychosis (Resolved) Surgical History S/P dilation and curettage Social History (Updated 07/05/19 @ 09:56 by Ann Tolliver) Preferred Language: Occitan Communication Ability: Effective Visual Impairment: No Limitations Hearing Ability: Normal Wrapper Operator Required: No Beliefs That Will Affect Care: None marital status: marital status details: Sky Li (27) Current Living Situation: Family and Significant Other Current Living Situation Comment: Lives with boyfriend, Sky Li and son, cat-fob changing litter current occupational status: disabled Feels Safe at Home: Yes Smoking Status: Former smoker Second Hand Exposure: Yes ; Hx Alcohol Use: No Hx Substance Use: Yes substance use type: crack/cocaine and heroin Substance Use Type Other:: last used 3 years ago Childhood Exposure to Second-Hand Smoke: No caffeine: Yes Dental Care, Regularly: Yes Physical Activity Frequency: Daily Physical Activity Frequency Comment: walking Seatbelt Use: always Review of Systems Review of Systems: All systems reviewed & are unremarkable except as noted in HPI & below Physical Exam Physical Exam: General: patient resting comfortably, NAD, non-toxic in a ppearance, AA&O x 4 Skin: warm, dry, intact, no rashes or lesions HEENT: NC/AT, PERRL, EOMI, anicteric sclera, conjunctiva without injection, external ear normal to inspection and nontender, nares patent, moist mucus membranes, dentition intact, no oropharyngeal lesions, neck supple, trachea midline, no LAD, no thyromegaly, no JVD Heart: +S1/S2, regular, no m/r/g Lungs: equal air entry bilaterally, no rales/rhonchi/wheezes Abd: +BS, soft, tender in RUQ with voluntary guarding, no masses/organomegaly/ascites Ext: warm, 2+ pulses in UE/LE bilaterally, no clubbing/cyanosis or edema Neuro: nonfocal, patient AA&O x 4, speech intact, no facial droop, moving all extremities on command with equal strength 5/5 Results & Data Results & Data ([facility]) Vital Signs (Past 12 Hours) Vital Signs Temp Pulse Pulse Resp BP BP Pulse Ox 08/29/19 23:53 82 16 144/65 H 99 08/29/19 21:25 37.3 C 78 16 133/60 98 Laboratory Results Lab Results 08/29/19 08/29/19 08/29/19 Range/Units 21:57 21:57 23:30 WBC 9.50 (4.8-10.8) K/uL RBC 4.11 L (4.2-5.4) M/uL Hgb 11.8 L (12.0-16.0) g/dL Hct 36.0 L (37-47) % MCV 87.6 (80-100) fL MCH 28.7 (25-34) pg MCHC 32.8 (32-36) g/dL RDW Std Deviation 43.2 (36.4-46.3) fL RDW Coeff of Beverley 13.5 (11.5-14.5) % Plt Count 294 (130-400) K/uL MPV 10.4 (7.4-10.4) fL Immature Gran % (Auto) 0.2 % Neut % (Auto) 56.0 % Lymph % (Auto) 36.1 % [place] % (Auto) 5.9 % Eos % (Auto) 1.7 % Baso % (Auto) 0.1 % Immature Gran # (Auto) 0.02 (0.00-0.02) K/uL Neut # (Auto) 5.32 (1.4-6.5) K/uL Lymph # (Auto) 3.43 H (1.2-3.4) K/uL [place] # (Auto) 0.56 (0.11-0.59) K/uL Eos # (Auto) 0.16 (0-0.5) K/uL Baso # (Auto) 0.01 (0-0.2) K/uL Sodium 138 (136-145) mmol/L Potassium 3.6 (3.5-5.1) mmol/L Chloride 106 (98-107) mmol/L Carbon Dioxide 22 (21-32) mmol/L Anion Gap 10.0 (3-11) BUN 8 (7-18) mg/dl Creatinine 0.60 (0.6-1.2) mg/dl Est Cr Clr Drug Dosing Not Reportable Est GFR ( Amer) 148.9 Est GFR (Non-Af Amer) 128.5 BUN/Creatinine Ratio 13.1 (10-20) Glucose 85 (70-99) mg/dl Calcium 10.0 (8.5-10.1) mg/dl Magnesium 1.2 L (1.8-2.4) mg/dl Total Bilirubin 0.1 L (0.2-1) mg/dl AST 16 (15-37) U/L ALT 23 (12-78) U/L Alkaline Phosphatase 115 (45-117) U/L Total Protein 7.4 (6.4-8.2) gm/dl Albumin 2.8 L (3.4-5.0) gm/dl Globulin 4.6 H (2.5-4.0) gm/dl Albumin/Globulin Ratio 0.6 L (0.9-2) Lipase 199 (73-393) U/L Urine Color Yellow Urine Appearance Clear (Clear) Urine pH 7.5 (4.5-7.5) Ur Specific [place] 1.018 (1.000-1.030) Urine Protein Negative (Negative) Urine Glucose (UA) Negative (Negative) Urine Ketones Negative (Negative) Urine Blood Negative (Negative) Urine Nitrite Negative (Negative) Urine Bilirubin Negative (Negative) Urine Urobilinogen Negative (Negative) Ur Leukocyte Esterase 2+ H (Negative) Urine WBC (Auto) 10-30 H (0-5) /hpf Urine RBC (Auto) 0-4 (0-4) /hpf U Hyaline Cast (Auto) 1-5 (0-5) /lpf U Epithel Cells (Auto) >30 H (0-5) /lpf Urine Bacteria (Auto) 1+ H (Negative) Diagnostic Findings US Per STAT-RAD: Mild thickening and irregularity of the gallbladder wall which demonstrates mild hyperemia. There are several 2-3 mm gallstones vs sludge along the gallbladder wall. Sonographic Coyne sign is negative. Consider cholecystitis. The pancreas, aorta, IVC, liver and right kidney are within normal limits. The common bile duct is nondilated measuring 2mm. Images of the RLQ are unremarkable. The appendix is not visible. The cervix measures 3.2 cm and is closed. The placenta is anterior. There is a Delano Barrow contraction which resolves at the end of the examination. Right ovary measures 2.2 x 2.7 x 1.9cm with normal Doppler blood flow. Left ovary is obscured. Single intrauterine fetus in a breech presentation. [id number] Code Status & VTE Plan Code Status FULL VTE Prophylaxis Plan VTE Prophylaxis will be ordered: Yes PG Care Time/CCT Total # of Minutes Spent Total Time Spent with Patient: Total time spent is greater than 50% in coordination of care (as documented) at patient's floor/unit and/or counseling patient: Coding Level of Care Code 01985 OBS Care - Level 2 Diagnoses RUQ pain R10.11 Z3A.20 Weeks of gestation: 20 weeks (1) Weeks of gestation: 20 weeks Qualified Code(s): Z3A.20 - 20 weeks gestation of
[2019-08-30] MEDS ORDERED: SODIUM CHLORIDE 0.9% 1000ML 1,000 ML IV SCH (02:10)
[2019-08-30] MEDS ORDERED: ACETAMINOPHEN 325 MG TAB PO PRN (02:10)
[2019-08-30] MEDS ORDERED: PIPERACILL/TAZOBAC CONSULT ACTIVE PRN (02:10)
[2019-08-30] MEDS ORDERED: DOCUSATE SODIUM 100 MG CAP PO PRN (02:10)
[2019-08-30] MEDS: PIPERACILLIN/TAZOBACTAM 3.375 GM in DEXTROSE 5% 100 ML IV SCH ×2 (03:38→10:46)
--- NOTE | 2019-08-30 06:47 | Ultrasound Report ---
APPENDIX ULTRASOUND HISTORY: Right lower quadrant abdominal pain. . COMPARISON: None. FINDINGS: Transabdominal scanning of the right lower quadrant was performed. The appendix was not identified. T here are no fluid collections or masses within the right lower quadrant. IMPRESSION: Nonvisualization of the appendix. ACT 112: Negative or not required by law. Electronically signed by: Geremias Gabriel M.D. 08/30/2019 6:45 AM
--- NOTE | 2019-08-30 07:15 | Ultrasound Report ---
ABDOMINAL ULTRASOUND, RIGHT UPPER QUADRANT HISTORY: RUQ/R sided abd pain. COMPARISON: Abdominal ultrasound 04/09/2016. FINDINGS: Pancreas: The pancreas demonstrates a normal echotexture. Liver: Unremarkable. Gallbladder: Mild irregularity versus echogenic foci along the gallbladder wall. There appears be a t race amount of gallbladder sludge. No definite gallstones identified. Gallbladder wall measures up to 2.3 mm in thickness. Negative sonographic Coyne's sign. Mild hyperemia along the gallbladder wall, unchanged. CBD: 2.3 mm. Right kidney: No hydronephrosis. IMPRESSION: Mild irregularity versus echogenic foci along the gallbladder wall. There may be a trace amount of ga llbladder sludge. No definite gallstones. This is indeterminate but less likely to represent acute ch olecystitis given the negative sonographic Coyne's sign. Clinical correlation recommended. ACT 112: Negative or not required by law. Electronically signed by: Salvador King M.D. 08/30/2019 7:13 AM
--- NOTE | 2019-08-30 08:10 | Ultrasound Report ---
US OB limited CLINICAL HISTORY: 19w , R sided abd pain COMPARISON STUDY: ultrasound June 29, 2019. TECHNIQUE: Transabdominal sonography of the pelvis was performed. FINDINGS: Single viable intrauterine gestation is noted. heart rate is normal, measuring 149 bp m. Please note that a dedicated anatomical survey was not performed. Femur length measures 3.2 cm which corresponds to estimated gestational age of 20 weeks and 0 days. Abdominal circumference jarad sured 16.68 cm which corresponds to an estimated gestational age of 21 weeks and 5 days. Head circumf erence measured 16.5 cm corresponds to an estimated gestational age of 19 weeks and 3 days. [place] l diameter measured 4.28 cm which corresponds to an estimated gestational age of 19 weeks and 0 days. Presentation is breech. Placenta is located anteriorly. No definite placental abnormality is identif ied. Cervix was closed, measuring approximately 3.2 cm in length. Left ovary was not visualized. Righ t ovary is unremarkable. IMPRESSION: 1. Single viable intrauterine gestation with normal heart rate of 149 bpm. 2. Closed cervix, measuring approximately 3.2 cm in length. This can be assessed on follow-up ultraso und. 2. Nonvisualization of the left ovary. ACT 112: Negative or not required by law. Electronically signed by: Geremias Gabriel M.D. 08/30/2019 8:09 AM
[2019-08-30] MEDS: PRENATAL VITAMIN 1 TAB PO SCH ×2 (08:34→14:07)
--- NOTE | 2019-08-30 09:09 | OB/GYN Consultation ---
Date of Consultation August 30, 2019 Assessment & Plan (1) Encounter for supervision of normal in multigravida: 20 weeks . agree that if conservative management is effective at this time, better than surgical management as 20 weeks .Will follow closely Yordan Rudolph B Daily FHR checks (2) Abnormal gallbladder ultrasound: History of Present Illness Attending Physician: Lu Mcallister DO History of Present Illness 20 weeks GA with prior delivery at 36 weeks who presented with RUQ pain. With prior PTB was offered Mellissa, but declined. 1 child taken from her, one child living with her. CYS will be consulted at time of delivery. At this time she states her symptoms are much better. She is being managed by general surgery and hospitalist service. No bleeding, no CTX. Scheduled for anatomy U/S Allergies Allergy/AdvReac Type Severity Reaction Status Date / Time bee venom protein (honey bee) Allergy Severe Anaphylaxis Verified 08/29/19 22:16 onion Allergy Severe swelling Verified 08/29/19 22:16 Home Medications Home Medications Medication Instructions Recorded Confirmed Type epinephrine [EpiPen 2-Destin] 0.3 mg IM Q15M PRN 08/29/19 08/29/19 History Patient History Medical History Anemia (Chronic) Anxiety (Chronic) Cerumen impaction (Resolved) Depression (Chronic) Depressive disorder, atypical (Chronic) Food allergy (Chronic) History of tobacco abuse stopped in 2017 Intellectual disability (Chronic) Migraine headache (Chronic) Routine gynecological examination Unspecified episodic mood disorder (Chronic) Unspecified psychosis (Resolved) Surgical History S/P dilation and curettage Family History Other Adopted Social History Preferred Language: Pakistani Communication Ability: Effective Visual Impairment: No Limitations Hearing Ability: Normal Mental Health Case Manager Required: No Beliefs That Will Affect Care: None marital status: marital status details: Sky Davidelsie (27) Current Living Situation: Family Current Living Situation Comment: Lives with boyfriend, Sky Li and son, cat-fob changing litter current occupational status: disabled Feels Safe at Home: Yes Safety Concerns: Feels Safe At This Time Smoking Status: Former smoker Do You Dip or Chew Tobacco: No ; Second Hand Exposure: Yes ; Hx Alcohol Use: No Hx Substance Use: No Childhood Exposure to Second-Hand Smoke: No caffeine: Yes Dental Care, Regularly: Yes Physical Activity Frequency: Daily Physical Activity Frequency Comment: walking Seatbelt Use: always Results & Data Vital Signs (Past 12 Hours) Vital Signs Temp Pulse Pulse Pulse Resp BP BP 08/30/19 07:49 98.2 F 87 20 106/68 08/30/19 02:12 98.4 F 86 16 08/30/19 01:54 69 16 08/29/19 23:53 82 16 08/29/19 21:25 99.1 F 78 16 133/60 BP Pulse Ox 08/30/19 07:49 99 08/30/19 02:12 135/78 96 08/30/19 01:54 154/74 H 99 08/29/19 23:53 144/65 H 99 08/29/19 21:25 98 PG Care Time/CCT Total # of Minutes Spent Total Time Spent with Patient: Total time spent is greater than 50% in coordination of care (as documented) at patient's floor/unit and/or counseling patient: Coding Level of Care Code 34277 Inpt Consult Level 2 Diagnoses Encounter for supervision of normal in multigravida Z34.80 Abnormal gallbladder ultrasound R93.2
--- NOTE | 2019-08-30 15:23 | Discharge Summary ---
Date of Service August 30, 2019 Admission HPI Per Admitting Provider Lu Erwin is a 24yo AA female at 20 weeks presenting with RUQ pain. She states that she has had occasional abdominal and RUQ discomfort since the of her second child 13 months ago. That discomfort seemed to be brought on by movement. Symptoms acutely worsened 2 days ago after picking up her son. Located in RUQ, bandlike across upper abdomen. She denies nausea/vomiting/diarrhea or constipation. Denies fevers/chills/CP/SOB. No additional complaints at this time. ER Course: Tylenol. Magnesium Principal Diagnosis Pt is feeling much improved. She has had no abd pain with a tray of clear liquids and is asking for d/c to home. Pt denies fever, SOB, chest pain, n/v/c/d, LE pain or swelling. Discharge Exam Constitutional WD/WN, vitals as above Eyes normal visual swanson by confrontation and + anicteric sclerae Neck normal visual inspection and trachea midline Respiratory normal respiratory effort, lungs clear to auscultation Cardiovascular Rate/Rhythm: regular rate and regular rhythm Gastrointestinal (Abdomen) Inspection/Auscultation: + abdomen distended (c/w ) Percussion/Palpation: abdomen soft; abdomen nontender Musculoskeletal Head/Neck/Chest: normocephalic and head atraumatic Skin no rashes, warm and dry Neurologic awake; not confused Speech / Cognition: normal speech Psychiatric A+Ox3, euthymic affect Discharge Data Allergies Allergy/AdvReac Type Severity Reaction Status Date / Time bee venom protein (honey bee) Allergy Severe Anaphylaxis Verified 08/29/19 22:16 onion Allergy Severe swelling Verified 08/29/19 22:16 Consultations 08/30/19 00:59 ED Decision to Admit Stat 08/30/19 02:10 Consult General Surgery Routine Consult Obstetrics Routine Ordered Studies 08/29/19 21:48 US OB limited Urgent US gallbladder Urgent 08/29/19 22:42 US appendix Urgent Hospital Course (1) RUQ pain: 24yo AA female at 20 weeks presenting with RUQ pain. RUQUS wtih gallstones present, possible sludge, consider cholecystitis. On exam she is afebrile, hemodynamically stable, nontoxic in appearance, labs are relatively unremarkable to include normal WBC and LFTs. She does have mild anemia and hypomagnesemia. ?degree of chronic cholecystitis, ?musculoskeletal etiology as pain started as she was picking up her son?. Appendix unable to be visualized, GB noted with trace sludge and neg Coyne's Ob US without concerns, FHR 140s and closed cervix Gen surg plan for conservative management given 20 week gestation Pt able to tolerate clears and requesting d/c to home -OB agrees with current plan Discussed diet recs prior to d/c. Pt has had pizza the last 4 days as well as [employer] the last 3 days. States she had similar pains with a prior but not enough to come to the hospital Note that pt's UA was 2+ leuk est, neg nitrites. Neg for UTI sx Cx pending on d/c to be addressed by research staff member as outpt if UTI (2) : at 20 weeks. Patient has a 3 year old son and a 13 month old son at home. She reports uncomplicated . She follows routinely with OB. US performed today unremarkable. -Continue PNV daily Seen by Ob, should f/u this week Total Time Total Time Spent Total Time Spent (In Minutes): >30 Total Time Includes: Examination of the Patient, Discharge Planning, Medication Reconciliation and Other Discharge Plan Discharge Items Patient Disposition: Home - Self-Care Reason For Visit: RUQ PAIN Discharge Diagnosis: cholecystitis Condition on Discharge: Good Activity: Resume your previous activity Non-emergency contact: Supervisor Soldering Call non-emergency contact if: you have any medication questions and your symptoms worsen Follow-up/Referrals: Beltran Welsh Jr, MD, FACOG [Physician] - (in 2 days, can be a telehealth visit) Mylene Golver DO [Primary Care Provider] - Diet: Regular Addtl Attending Provider Instructions: You should avoid heavy foods, and food that are fatty or greasy, such as fast food and pizza for the duration of your to help prevent more pain related to your gallbladder. You may have a urinary tract infection (UTI). There is a culture pending, however results will not be available until tomorrow. You should follow up with your research staff member to determine if you will need antibiotics or not. Pending Studies at Discharge: Yes Studies:: Urine cx Stand-Alone Forms: [facility], Smoking Cessation Medications and DC Order Prescriptions: Continued epinephrine [EpiPen 2-Destin] 0.3 mg/0.3 mL auto-injector 0.3 mg IM Q15M PRN (Reason: Bronchodilation) RF: 0 Discharge Orders: Discharge Order (Routine); Ordered 08/30/19 Ordered By: Lu Pedraza/Other Patient Handouts: ED GALL BLADDER INFECTION Presumed Admission Data Admit Date/Time: 08/30/19 01:40 Attending Provider: Lu Mcallister Admit Provider: Karena Cortes Primary Care Provider: Mylene Glover Other Providers: Karena Cortes ; Aroldo Cueto ; Beltran Welsh Jr Other Interventions: Discharge Summary Assessment (RN) Last Done: 08/30/19 15:30 DC Date/Time DO NOT enter until pt leaves facility: 08/30/19 16:55 Coding Level of Care Code D/C Day Management >30 mins Diagnoses RUQ pain R10.11 Z3A.20 Weeks of gestation: 20 weeks
[2019-08-30] MEDS ORDERED: PIPERACILLIN/TAZOBACTAM 3.375 GM in DEXTROSE 5% 100 ML IV SCH (18:00)
== END 2019-08-30 16:55 | disposition home or self-care (01) ==
LOC: ED 21:23 → 3E 21:23 → SUATTDRO 08-30 01:40 → 3E 08-30 01:56

== ENCOUNTER 2020-01-16 04:00 | Inpatient (IN) ==
[2020-01-16] MEDS ORDERED: OXYTOCIN 30 UNITS/500 ML BAG IV PRN ×2 (04:26→08:43)
--- NOTE | 2020-01-16 04:40 | History & Physical Report ---
Date of Service January 16, 2020 Assessment & Plan (1) Spontaneous rupture of membranes: Admission and Anticipated Discharge Date Admission Date: IUP at 39 + weeks with SPROM and spontaneous labor epidural analgesia when more painful- will ambulate for now anticipate vaginal History of Present Illness Primary Care Provider: Mylene Glover DO Patient is a 24 yo black female EDC 01/17/20 who presents at 39 weeks with SPROM clear fluid at 0200 tonight. contractions started shortly afterward. GBS negative. complicated by cholecystitis/gallstones and will need cholecystectomy 8-10 weeks . CYS also involved in prior pregnancies. Allergies Allergy/AdvReac Type Severity Reaction Status Date / Time bee venom protein (honey bee) Allergy Severe Anaphylaxis Verified 01/16/20 04:17 onion Allergy Severe swelling Verified 01/16/20 04:17 Home Medications Home Medications Medication Instructions Recorded Confirmed Type ferrous sulfate 325 mg PO DAILY 11/19/19 01/16/20 History vit no.[id number] 1 tab PO DAILY 11/19/19 01/16/20 History [ Vitamin] epinephrine 0.3 mg IM DIRECTED PRN 11/26/19 01/16/20 History Patient History Medical History Anemia Anxiety Cerumen impaction Depression Depressive disorder, atypical Encounter for anatomic survey False labor before 37 completed weeks of gestation Food allergy History of tobacco abuse stopped in 2017 Intellectual disability Migraine headache Routine gynecological examination Unspecified episodic mood disorder Unspecified psychosis Surgical History S/P dilation and curettage Family History Other Adopted Social History Smoking Status: Former smoker Tobacco Type: Cigarettes Second Hand Exposure: No; Hx Alcohol Use: No 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) Last Used Substance Other:: last used 4 years ago Substance Use Type Other:: last used 3 years ago Preferred Language: Arabic Communication Ability: Effective Visual Impairment: No Limitations Hearing Ability: Normal Transplant Nurse Practitioner Required: No Beliefs That Will Affect Care: None marital status: Single marital status details: Sky Li (27) Current Living Situation: Family Current Living Situation Comment: Lives with boyfriend, Sky Li and son, cat-fob changing litter current occupational status: disabled Feels Safe at Home: Yes Childhood Exposure to Second-Hand Smoke: No caffeine: Yes Dental Care, Regularly: Yes Physical Activity Frequency: Daily Physical Activity Frequency Comment: walking Seatbelt Use: always Assistive Devices: None Review of Systems All systems reviewed & are unremarkable except as noted in HPI & below Physical Exam Constitutional: WD/WN, vitals as above Respiratory: normal respiratory effort, lungs clear to auscultation Cardiovascular: RRR, no murmur, no edema Gastrointestinal (Abdomen): normal bowel sounds, soft, nontender, no hepatosplenomegaly Psychiatric: A+Ox3, euthymic affect Genitourinary: Manual OB Exam: + cervical dilation 4 cm, + cervical effacement 70%, + station -2 and + amniotic fluid (grossly ruptured) clear and nitrazine positive OB Exam Monitor Tracing: + external FHT monitor used, + external uterine monitor used, + category I and + normal FHT variability Coding Level of Care Code None Diagnoses Spontaneous rupture of membranes
[2020-01-16 04:55] LABS: Hematocrit (blood only) 33.1 % (37-47); Hemoglobin 10.4 g/dL (12.0-16.0); Mean Corpuscular Hemoglobin 24.8 pg (25-34); Mean Platelet Volume 11.2 fL (7.4-10.4); Platelet Count 199 K/uL (130-400); RDW Coefficient of Variation 15.9 % (11.5-14.5); Red Blood Count 4.19 M/uL (4.2-5.4); White Blood Count 8.07 K/uL (4.8-10.8)
[2020-01-16 05:02] LABS: Mean Corpuscular Hgb Conc 31.4 g/dL (32-36)
[2020-01-16] MEDS: LACTATED RINGER'S 1,000 ML IV PRN ×2 (06:10→07:22)
[2020-01-16] MEDS ORDERED: ePHEDrine sulfate 50 MG/ML AMP ONE (06:12)
[2020-01-16] MEDS ORDERED: BUPIVACAINE 0.25% 30 ML VIAL ONE (06:12)
[2020-01-16] MEDS ORDERED: fentaNYL citrate 100 MCG/2 ML VIAL ONE (06:13)
[2020-01-16] MEDS ORDERED: fentaNYL 2MCG/ML ROPIV 1.25MG/ML 100 ML BAG EPI ONE (06:13)
--- NOTE | 2020-01-16 06:17 | Anesthesiology Consultation ---
Date of Service January 16, 2020 Assessment & Plan (1) Encounter for pre-operative examination: Chart Review Chart Review: Patient NOT seen in Pre Admission Testing and Acceptable Risk for Labor Epidural Consults Requested none ASA ASA2 Proposed Anesthesia Anesthesia Type: Labor Epidural Risk / Benefits Reviewed With: PT / POA / Parent / Guardian, Accepts Plan and Informed Consent Obtained History Height/Weight Height: 5 ft Weight: 79.379 kg Allergies Allergy/AdvReac Type Severity Reaction Status Date / Time bee venom protein (honey bee) Allergy Severe Anaphylaxis Verified 01/16/20 04:17 onion Allergy Severe swelling Verified 01/16/20 04:17 Medications Home Medications Medication Instructions Recorded Confirmed Last Taken ferrous sulfate 325 mg PO DAILY 11/19/19 01/16/20 01/15/20 08:00 vit no.[id number] 1 tab PO DAILY 11/19/19 01/16/20 01/15/20 [ Vitamin] epinephrine 0.3 mg IM DIRECTED PRN 11/26/19 01/16/20 Unknown Active Medications Generic Name Dose Route Start Last Admin Trade Name Freq PRN Reason Stop Dose Admin Lactated Ringer's 1,000 mls @ 125 mls/hr 01/16/20 04:26 01/16/20 06:10 Lr IV 01/18/20 04:25 999 mls/hr .Q8H PRN Administration L&D Protocol Protocol NPO Date Last Intake of Fluids: 01/16/20 Time Last Intake of Fluids: 06:19 Date Last Intake of Solids: 01/15/20 Time Last Intake of Solids: 19:00 Past Medical History Medical History Anemia Anxiety Cerumen impaction Depression Depressive disorder, atypical Encounter for anatomic survey False labor before 37 completed weeks of gestation Food allergy History of tobacco abuse stopped in 2017 Intellectual disability Migraine headache Routine gynecological examination Unspecified episodic mood disorder Unspecified psychosis Exercise / Class Metabolic Activity III < 4 Walking/Shop/Light housework Past Family History Family History Other Adopted Past Surgical History Surgical History S/P dilation and curettage Past Anesthesia History No Hx of Anesthesia Complications and Other last epidural "messed up her back" History of PONV No Hx of PONV Social History Smoking Status: Former smoker tobacco type: cigarettes Hx Alcohol Use: No 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) substance use type: former substance user Substance Use Type Other:: last used 3 years ago Last Used Substance Other:: last used 4 years ago Review of Systems Negative for chest pain or shortness of breath. Patient denies numbness, tingling or weakness in lower extremities. Patient denies history of abnormal bleeding or bleeding disorder. Patient denies active use of anticoagulants other than low dose aspirin. Physical Exam Vital Signs Last Vital Signs Temp 36.9 C 01/16/20 04:28 Resp 18 01/16/20 04:28 Constitutional not obese (gravid uterus) ENMT Mouth: no TMJ abnormality and oral opening not small Thyromental Distance: > or= 3.5 Finger Breadths Mallampati Class: III Neck normal visual inspection; neck extension not limited Respiratory normal respiratory effort Auscultation: lungs clear to auscultation bilaterally Cardiovascular Rate/Rhythm: regular rate and regular rhythm Heart Sounds: no murmur Neurologic moves all extremities Motor/Sensory: no sensory deficit Psychiatric Orientation: alert and oriented x 3 Testing Laboratory Results 01/16/20 04:38
[2020-01-16] MEDS ORDERED: ACETAMINOPHEN 325 MG TAB PO PRN (08:43)
[2020-01-16] MEDS ORDERED: SUPERCREAM 0.870% 15 GM JAR EXT PRN (08:43)
[2020-01-16] MEDS ORDERED: HYDROCORTISONE ACETATE 25 MG SUPP PR PRN (08:43)
[2020-01-16] MEDS ORDERED: BENZOCAINE 20% AER SPR 82.5 GM CAN EXT PRN (08:43)
[2020-01-16] MEDS ORDERED: DIPHTHERIA/TETANUS/PERTUSSIS 0.5 ML SYR/VIAL IM ONE (08:43)
[2020-01-16] MEDS ORDERED: bisacodyL 10 MG SUPP PR PRN (08:43)
[2020-01-16] MEDS: IBUPROFEN 600 MG TAB PO PRN ×2 (09:32→20:03)
--- NOTE | 2020-01-16 10:17 | Delivery Summary ---
Vaginal Delivery Summary Date of Service January 16, 2020 Patient is a 24-year-old 5 para 1-1-2-2 with an EDC of 01/17/2020 who presented after spontaneous rupture of membranes and active labor. She requested an unmedicated . She progressed to full dilation with the urge to push. She pushed effectively through 2 contractions for delivery of a viable male infant over intact perineum. was placed on the mother's abdomen for further attention and drying. The infant was vigorously crying and moving all 4 limbs. After 1 minute, the cord was clamped and cut. The placenta was expressed intact with a three-vessel cord. Perineum was noted to be intact. Estimated blood loss was 200 cc. Mother and were doing well after delivery. [facility] [place] Vaginal Delivery Charge Vaginal Delivery Codes: 40042 global code for the antepartum, delivery, and post-
[2020-01-16] MEDS: DOCUSATE SODIUM 100 MG CAP PO SCH (20:03)
[2020-01-17] MEDS: IBUPROFEN 600 MG TAB PO PRN ×3 (04:16→11:35)
--- NOTE | 2020-01-17 05:59 | Obstetrical Progress Note ---
Date of Service <Ryan Borges MD - Last Filed: 01/17/20 06:54> January 17, 2020 Assessment & Plan <Ryan Borges MD - Last Filed: 01/17/20 06:54> (1) Spontaneous vaginal delivery: Adelaida is a 24y/o female with a notable history of cholelithiasis who is now PPD #1 following at 39-5/7 weeks - Feels well today. Eating well, voiding well, ambulating well. - Pain well controlled with ibuprofen 600mg Q4H PRN. - Routine PPD care -- OOB, ambulation, diet progression as tolerated - Will need cholecystectomy alongside tubal at 8-10 weeks PPD -- discussed with patient this morning, would still like to proceed as planned - After discharge will have [address] Ailyn Dubois #:: 1 Subjective <Ryan Borges MD - Last Filed: 01/17/20 06:54> Adelaida is a 24y/o female who is now PPD #1 following at 39-5/7 weeks. Reports feeling well overall this morning. Endorses some abdominal cramping with pain well managed on analgesics. Voiding without difficulty. Tolerating meals overnight and able to ambulate some. Endorses passing gas. Some persistent lochia with some improvement this morning. Bottle feeding without any problems. Review of Systems Denies fever, chills, sweats Denies shortness of breath, difficulty breathing, chest pain, palpitations, chest pressure. Denies breast pain. Denies dysuria. Denies headache or changes in vision. Physical Exam <Ryan Borges MD - Last Filed: 01/17/20 06:54> General: Alert, oriented. No acute distress. Cardiac: Regular rate and rhythm, no murmurs/rubs/gallops. Respiratory: Clear to auscultation bilaterally a/p, no wheezes/rales/rhonchi. No increased work of breathing. Symmetrical chest rise. No respiratory distress. Abdomen: Soft, nontender, nondistended. Bowel sounds present. Uterus: Uterine fundus firm, palpable 1cm below umbilicus. Lower Extremities: No lower extremity edema or swelling. No deep calf pain. Ashly's negative bilaterally. Results & Data ([facility]) <Ryan Borges MD - Last Filed: 01/17/20 06:54> Vital Signs (Past 12 Hours) Vital Signs Temp Pulse Pulse Resp BP Pulse Ox 01/17/20 04:10 36.8 C 66 18 143/87 H 01/16/20 23:20 36.7 C 76 18 138/75 01/16/20 19:25 36.9 C 88 18 127/74 95 <Anna Dickson MD, FACOG - Last Filed: 01/17/20 07:09> Co-Signing Physician Notes Resident Physician Supervision Note: I was present with Dr. Ryan Borges during the history and exam. I discussed the case with the resident and agree with the findings and plan as documented in the note. Any exceptions or clarifications are listed here: [None] Documented By: Anna Dickson MD, FACOG Resident Activity Tracking <Ryan Borges MD - Last Filed: 01/17/20 06:54> Resident Involvement: Resident Care Provided Care Provided: Adult Hospital Medicine and OB Delivery
[2020-01-17 06:26] LABS: Hematocrit (blood only) 29.7 % (37-47); Hemoglobin 9.2 g/dL (12.0-16.0); Mean Corpuscular Hemoglobin 24.6 pg (25-34); Mean Corpuscular Volume 79.4 fL (80-100); Mean Platelet Volume 11.4 fL (7.4-10.4); Platelet Count 189 K/uL (130-400); RDW Coefficient of Variation 15.9 % (11.5-14.5); RDW Standard Deviation 46.7 fL (36.4-46.3); Red Blood Count 3.74 M/uL (4.2-5.4)
[2020-01-17] MEDS ORDERED: PRENATAL VITAMIN 1 TAB PO SCH (08:00)
[2020-01-17] MEDS: DOCUSATE SODIUM 100 MG CAP PO SCH (08:14)
--- NOTE | 2020-01-17 11:06 | Psychiatric Consultation ---
Date of Consultation January 17, 2020 Impression / Recommendations Impression 24 yo female with history of depression seen just following of 3rd baby boy, desires to restart Zoloft as recognizes mood good get worse given history and is agreeable to any recommended aftercare. Risks/benefits/alternatives reviewed re: SSRI and black box warnings, agreed to Zoloft 25 mg daily for now with plan to titrate once established with an outpatient provider. Previous effective dose likely 100 mg of Zoloft per patient's report. RX written at service's request for #30 tabs, Zoloft 25 mg daily. Liaison confirmed that patient signed release for [facility] CM and is willing for virtual med management with [facility] psych clinic until finds care provider in [place] (she reported interest in [facility]), current ID CM to assist patient after discharge pending these. Risk Factors Assessment Do You Have Access To A Gun?: No Psych History Identifying Data 24 yo female with a hx of intellectual disability who was last admitted to in Apr 2016. Currently lives in [place]. Consult by L&D for hx of MH/ID and drug use. Current CYS involvement. Chief Complaint "I'm feeling better now that the baby is out but I know I'll get depressed again.". History of Present Illness She is unsure last time she participated in therapy or took medication. States Zoloft was always more helpful than "the others". States that she stressed with COVID, 2 young children (plus her boyfriend's child) and taking nursing school classes on line. She "doesn't like" service providers monitoring but understands while and is motivated to take good care of herself and the children. Sleep was disrupted as typical toward the end of . States energy is improved today as not physically uncomfortable as when later stages of . Reports that last suicidal thoughts were "only" passive and occurred when "home too much" during the earlier states of COVID (later June and early July). "Once we were able to go places again I was fine". Concentration for her classes "a challenge" but attributes more to than mood. She plans to bottle feed and baby is taking formula. She is future focussed with regards to return home. Past Psychiatric History Current Psychiatric Diagnosis: unspecified depressive disorder Outpatient Services: [facility] psych clinic in past, currently has MH CM, hoping for BCM/MHID CM Previous Psych Admissions: [facility] 2016, [facility] (2016 & 2017)--last hospitalization was 6 months with 1st child who was ultimately adopted (open) Do You Have Access To A Gun?: No History of Previous Suicide Attempt: No Past Medication Trials: Wellbutrin, Zoloft Allergies Allergy/AdvReac Type Severity Reaction Status Date / Time bee venom protein (honey bee) Allergy Severe Anaphylaxis Verified 01/16/20 04:17 onion Allergy Severe swelling Verified 01/16/20 04:17 Home Medications Home Medications Medication Instructions Recorded Confirmed Type Vitamin 1 tab PO DAILY 11/19/19 01/16/20 History ferrous sulfate 325 mg PO DAILY 11/19/19 01/16/20 History epinephrine 0.3 mg IM DIRECTED PRN 11/26/19 01/16/20 History Family History unknown as adopted as infant Substance Abuse History no heroin or cocaine for 5 years Personal History Born In: adopted 4 days old, raised in [place] Highest Grade Completed: High School Graduate Employment Status: Student Marital Status: Number Of Children: now 3 (16 month old at home with her) Beliefs That Will Affect Care: None Patient History Medical History Anemia Anxiety Cerumen impaction Depression Depressive disorder, atypical Encounter for anatomic survey False labor before 37 completed weeks of gestation Food allergy History of tobacco abuse stopped in 2017 Intellectual disability Migraine headache Routine gynecological examination Unspecified episodic mood disorder Unspecified psychosis Surgical History S/P dilation and curettage Family History Other Adopted Social History Smoking Status: Former smoker Tobacco Type: Cigarettes Second Hand Exposure: No; Hx Alcohol Use: No 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) Last Used Substance Other:: last used 4 years ago Substance Use Type Other:: last used 3 years ago Preferred Language: Montenegrin Communication Ability: Effective Visual Impairment: No Limitations Hearing Ability: Normal Watch Train Assembler Required: No Beliefs That Will Affect Care: None marital status: Single marital status details: Sky Li (27) Current Living Situation: Significant Other Current Living Situation Comment: Lives with FOB current occupational status: disabled How many Children do You have: 3 Feels Safe at Home: Yes Childhood Exposure to Second-Hand Smoke: No caffeine: Yes Dental Care, Regularly: Yes Physical Activity Frequency: Daily Physical Activity Frequency Comment: walking Seatbelt Use: always Assistive Devices: None Physical Exam Psychiatric: Orientation: alert Apperance: appropriately groomed Eye Contact: good eye contact Motor Behavior: no abnormal motor movements Speech: normal rate/rhythm/volume of speech Affect: euthymic affect mood is "better" Thought Process: goal directed thought process Thought Content: reality based without delusions Suicidal Thoughts: denies suicidal thoughts Homicidal Thoughts: denies homicidal thoughts Hallucinations: no auditory hallucinations and no visual hallucinations Estimated Intelligence: consistent with education level Insight: + fair insight Judgement: + fair judgement Vital Signs (Past 24 Hours): Last Vital Signs Temp 36.7 C 01/17/20 07:50 Pulse 71 01/17/20 07:50 Resp 16 01/17/20 07:50 BP 120/78 01/17/20 07:50 Pulse Ox 95 01/16/20 19:25 Review of Systems All systems reviewed & are unremarkable except as noted in HPI & below Results & Data ([facility]) Medications Administered Acetaminophen (Acetaminophen 325 Mg Tab) 650 mg PO Q6H PRN PRN Reason: Pain/FERNANDEZ/Fever Stop: 02/15/20 08:42 Last Admin: 01/16/20 14:15 Dose: 650 mg Documented by: [id number] Docusate Sodium (Docusate Sodium 100 Mg Cap) 100 mg PO DAILY@08,21 YAMILEX Stop: 02/15/20 20:59 Last Admin: 01/17/20 08:14 Dose: 100 mg Documented by: [id number] Admin: 01/16/20 20:03 Dose: 100 mg Documented by: [id number] Lactated Ringer's (Lr) 1,000 mls @ 125 mls/hr IV .Q8H PRN; Protocol PRN Reason: L&D Protocol Stop: 01/18/20 04:25 Last Infusion: 01/16/20 08:43 Dose: 0 mls/hr Documented by: [id number] Admin: 01/16/20 07:22 Dose: 125 mls/hr Documented by: [id number] Infusion: 01/16/20 07:11 Dose: 999 mls/hr Documented by: [id number] Admin: 01/16/20 06:10 Dose: 999 mls/hr Documented by: [id number] Oxytocin (Pitocin) 30 units in 500 mls @ 333.333 mls/hr IV .Q1H30M PRN; Protocol PRN Reason: Bleeding Control Stop: 02/15/20 04:25 Last Titration: 01/16/20 10:10 Dose: 0 units/hr, 0 mls/hr Documented by: [id number] Admin: 01/16/20 08:40 Dose: 20 units/hr, 333.3 mls/hr Documented by: [id number] Cosigned by: [id number] Ibuprofen (Ibuprofen 600 Mg Tab) 600 mg PO Q4H PRN PRN Reason: Pain/FERNANDEZ/Cramping/Fever Stop: 02/15/20 08:42 Last Admin: 01/17/20 07:53 Dose: 600 mg Documented by: [id number] Admin: 01/17/20 04:16 Dose: 600 mg Documented by: [id number] Admin: 01/16/20 20:03 Dose: 600 mg Documented by: [id number] Admin: 01/16/20 09:32 Dose: 600 mg Documented by: [id number] Prenat Multivit/Rising Sun/Iron/Folic Ac ( Vitamin 1 Tab) 1 tab PO DAILY@08 YAMILEX Stop: 02/16/20 07:59 Last Admin: 01/17/20 08:14 Dose: 1 tab Documented by: [id number] Coding Level of Care Code 74081 U Intl Hosp Care Lvl 2
[2020-01-17] MEDS ORDERED: bisacodyL 5 MG TABEC PO SCH (20:00)
== END 2020-01-17 13:45 | disposition home or self-care (01) | DRG 807 ==
LOC: OPB 04:00 → 4S1 04:03 → 4S2 12:30